=== PATIENT | female | born 1945 | race Caucasian/White ===

== ENCOUNTER 2022-06-05 14:15 | Outpatient (RCR) | payer MEDICARE, OTHER, SELFPAY | END 2022-06-06 07:54 | disposition home or self-care (01) | PROVIDERS: PCP Family Medicine; Visit Provider Nurse Practitioner Obstetrics & Gynecology | DX: I89.0 Lymphedema, not elsewhere classified (principal); Z51.89 Encounter for other specified aftercare | CPT/HCPCS: 97110; 97140; 97166; 97530; 97535; X5282 ==

== ENCOUNTER 2023-09-23 14:00 | Outpatient (RCR) | payer MEDICARE, SELFPAY | END 2024-01-21 23:59 | disposition home or self-care (01) | PROVIDERS: PCP Family Medicine; Visit Provider Family Medicine | DX: M54.41 Lumbago with sciatica, right side (principal); R20.0 Anesthesia of skin; R26.81 Unsteadiness on feet; Z51.89 Encounter for other specified aftercare | CPT/HCPCS: 97110; 97162 ==

== ENCOUNTER 2025-01-26 14:00 | Outpatient (RCR) | payer MEDICARE, SELFPAY | END 2025-01-26 15:34 | disposition home or self-care (01) | PROVIDERS: PCP Family Medicine; Visit Provider Family Medicine | DX: I89.0 Lymphedema, not elsewhere classified (principal); Z51.89 Encounter for other specified aftercare | CPT/HCPCS: 97110; 97140; 97165; 97535; X5282 ==

== ENCOUNTER 2025-01-28 19:32 | Emergency (ER) | payer MEDICARE, SELFPAY ==
--- OUTSIDE RECORDS SUMMARY | 2025-01-28 19:35 | XMS_ITS | Data Portability ---
Author Organization [place] [facility] [place] [facility], [facility] Address [address] [place] [address] Assessment No assessment recorded. Plan of Treatment Reminders Order Date Submit Date Provider Last Modified By Organization Details Last Modified Time Details Appointments None recorded. Lab urinalysis , dipstick 2021 022 [facility], [address], [place], [address], 12:30:36 Referral None recorded. Procedures None recorded. Surgeries None recorded. Imaging None recorded. Medication Orders Myrbetriq 50 mg tablet,ext ended release 2021 022 [id number] [facility], [address] [place], [address], 20:30:39 Myrbetriq 50 mg tablet,ext ended release 2021 022 [email or web address] [facility], [address] [place] [address], [address], 20:30:39 Patient TargetsNo targets recorded. Patient Instructions Encounter Date Encounter Id Patient Instructions Last Modified By Organization Details Last Modified Time 10/11/2021 [id number] Overactive bladder, urge urinary incontinence: -Reviewed overactive bladder care pathway and gave handout. -Discussed first-line conservative management including including timed voiding, urge suppression strategies, pelvic floor exercises, and avoidance of bladder irritants. -Discussed second-line therapies including pelvic floor physical therapy and OAB medications. -Dry eyes and dry mouth at baseline. Would recommend avoiding anticholinergics. -Would recommend PFPT in the future. Tender PFM's on exam. Undergoing wide local excision of the vulva next week. Wait until incision is healed for PFPT. -After hearing the options, patient would like to try medication. -Recommended starting Myrbetriq 50mg QD. Samples provided today. Rx also sent to pharmacy to check on cost/PA. Monitor BP Follow up in 3 months [email or web address] Not available 10/11/2021 12:35:23 Reason for Referral None Reported. Results Created Date Observation Date Name Description Value Unit Range Abnormal Flag Note LastModifiedBy Organization Detail LastModifiedTime 10/12/19 22 10/11/2021 UA DIP CS ADVAN TUS color -advantus YELLOW yellow Not Available [facility] [address] [facility] [address], [place], [address], 10/11/2021 12:30:36 10/12/19 22 10/11/2021 UA DIP CS ADVAN TUS appearance -advantus Cloudy clear abnormal Not Available [facility] [address] [facility] [address], [place], [address], 10/11/2021 12:30:36 10/12/19 22 10/11/2021 UA DIP CS ADVAN TUS glucose -advantus NEGATI VE mg/dL negati ve Not Available [facility] [address] [place] [address] [address], [place], [address], 10/11/2021 12:30:36 10/12/19 22 10/11/2021 UA DIP CS ADVAN TUS bilirubin -advantus NEGATI VE negati ve Not Available [facility] [address] [place] [address] [address], [place], [address], 10/11/2021 12:30:36 10/12/19 22 10/11/2021 UA DIP CS ADVAN TUS ketones -advantus NEGATI VE mg/dL negati ve Not Available [facility] [address] [place] [address] [address], [place], [address], 10/11/2021 12:30:36 10/12/19 22 10/11/2021 UA DIP CS ADVAN TUS sp. gravity -advantus 1.020 1.010- 1.025 Not Available [facility] [address] [place] [address] [address], [place], [address], 10/11/2021 12:30:36 10/12/19 22 10/11/2021 UA DIP CS ADVAN TUS pH -advantus 5.5 5.0-8. 0 Not Available [facility] [address] [place] [address] [address], [place], [address], 10/11/2021 12:30:36 10/12/19 22 10/11/2021 UA DIP CS ADVAN TUS protein -advantus NEGATI VE mg/dL negati ve Not Available [facility] [address] [place] [address], [place], [address], 10/11/2021 12:30:36 10/12/19 22 10/11/2021 UA DIP CS ADVAN TUS urobilinogen -advantus 0.2 normal Not Available [facility] [address] [place] [address], [place], [address], 10/11/2021 12:30:36 10/12/19 22 10/11/2021 UA DIP CS ADVAN TUS nitrites -advantus NEGATI VE negati ve Not Available [facility] [address] [place] [address], [place], [address], 10/11/2021 12:30:36 10/12/19 22 10/11/2021 UA DIP CS ADVAN TUS blood -advantus LARGE negati ve abnormal Not Available [facility] [address] [place] [address] [address], [place], [address], 10/11/2021 12:30:36 10/12/19 22 10/11/2021 UA DIP CS ADVAN TUS leukocytes -advantus LARGE negati ve abnormal Not Available [facility] [address] [facility] [address], [place], [address], 10/11/2021 12:30:36 10/12/19 22 10/11/2021 UA DIP CS ADVAN TUS performed by Norman Persaud Not Available [facility] [address] [facility] [address], [place], [address], 10/11/2021 12:30:36 10/12/19 22 10/11/2021 UA DIP CS ADVAN TUS total urine volume (mL) 10cc /mL ----- ----- ----- ----- ----- ----- ----- ----- ----- ----- ----- ----- ----- ----- ---- *Darion oviedo note the follo wing minim um quant ities for addit ional urine testi ng: - Atypi cals: 3 mL - Cytol ogy: 20 mL - GC/CH : 2 mL - FISH: 30 mL - Atypi cals w/ GC/CH : 5 mL - Cytol ogy PLUS FISH: 50 mL - Urine Cultu re: 3 mL ----- ----- ----- ----- ----- ----- ----- ----- ----- ----- ----- ----- ----- ----- ---- Not Available [facility] [address] [facility] [address], [place], [address], 10/11/2021 12:30:36 10/12/19 22 10/11/2021 UA MICRO SCOPI C U-WBC 25 - 50 [hpf] 0 - 2 abnormal Not Available [facility] [address] [facility] [address], [place], [address], 10/11/2021 12:30:40 10/12/19 22 10/11/2021 UA MICRO SCOPI C U-RBC 2 - 5 [hpf] 0 - 2 abnormal Not Available [facility] [address] [facility] [address], [place], [address], 10/11/2021 12:30:40 10/12/19 22 10/11/2021 UA MICRO SCOPI C bacteria Large [hpf] negati ve abnormal Not Available [facility] [address] [facility] [address], [place], [address], 10/11/2021 12:30:40 10/12/19 22 10/11/2021 UA MICRO SCOPI C squamous epi Modera te /lpf negati ve,sma ll abnormal Not Available [facility] [address] [facility] [address], [place], [address], 10/11/2021 12:30:40 Result Notes None recorded. Procedures Surgical History Date Name Laterality Status Provider Name and Address Organization Details Recorded Time 01/15/20 22 Bladder Scan cancelled BLANKA SOTO [address] [place] [address],[address], [place], [address], [facility] 01/01/2022 16:06:07 10/12/19 22 Past Data Reviewed completed BLANKA SOTO [address] [place] [address],[address], [place], [address], [facility] 10/08/2021 15:01:57 10/12/19 22 In and Out Catheterization- female completed BLANKA SOTO [address] [place] [address],[address], [place], [address], [facility] 10/11/2021 12:32:48 04/20/19 17 Diagnostic sigmoidoscopy completed Not Available Health Note 01/10/2022 20:30:34 Imaging Results None recorded. Procedure Notes None recorded. Medical Equipment None Reported. Allergies No known drug allergies Medications Name Sig Start Date Stop Date Status Note LastModified by Organization Details LastModified Time atenolol 100 mg-chlortha lidone 25 mg tablet 25mg 1/day active Not Available Not Available No t Available Myrbetriq 50 mg tablet,exte nded release Take 1 tablet every day by oral route. 022 active HN: Patient reports no longer taking Not Available Not Available Not Available Eliquis 2.5 mg tablet 5mg 2/day active Not Available Not Available No t Available Vitals Date Recorded Body weight Provider Name an d Address Organization Details Last Updated DateTime 10/11/2021 022066.1 g Mary Paulson [place] [facility] [place] [facility] 10/11/2021 11:52:56 Date Recorded Body height Body mass index (BMI) Provider Name and Address Organization Details Last Updated DateTime 10/11/2021 170.18 cm 34.9 kg/m2 Not Available Health Note 11:51:03 Social History Question Answer Notes LastModified by [employer] Details LastModified Time Tobacco Smoking Status Never Smoker Not Available Health Note 01/10/2022 20:30:35 What Is Your Level Of Caffeine Consumption? Occasional [email or web address] Information not available 01/10/2022 How Much Tobacco Do You Chew? None [email or web address] Information not available 01/10/2022 Number Of Pregnancies 3 [email or web address] Information not available 10/09/2021 Number Of Vaginal Deliveries 2 [email or web address] Information not available 10/09/2021 Number Of Caesarean Sections 0 [email or web address] Information not available 10/09/2021 What Was The Date Of Your Most Recent Tobacco Screening? 01/14/2022 [email or web address] Information not available 01/10/2022 What Is Your Relationship Status? [email or web address] Information not available 10/09/2021 Are You Sexually Active? No [email or web address] Information not available 10/09/2021 Sex: Unknown Functional Status Question Answer Note LastModified by Organizat ion Details LastModified Time Do you use any illicit or recreational drugs? No [email or web address] Information not available 01/10/2022 What is your level of alcohol consumption? NONE [email or web address] Information not available 01/10/2022 Do you or have you ever used smokeless tobacco? Never used smokeless tobacco [email or web address] Information not available 01/10/2022 Do you or have you ever used e-cigarettes or vape? Never used electronic cigarettes [email or web address] Information not available 01/10/2022 Mental Status None recorded. Family History Nothing Reported Notes:Mother has father alco holism and mother mental illness and cervical cancer Father has father alcoholism and mother mental illness and cervical cancer Medical History Condition Response Sexually Transmitted Infection N Diabetes N Other N Bleeding Disorder N High Blood Pressure Y Kidney Stones N High Cholesterol Y GERD/Acid Reflux N Heart Disease N Cancer Y Lung Disease N Depression N Gynecological History Statement/Question Response If Post Menopausal, Age at Menopause 56 Hormone Therapy N Sexually Active? N Obstetrics History GPAL:G 0 P 0 0 0 0 Immunizations Vaccine Type Date Status Note Provider Nam e and Address Organization Details Recorded Time SARS-COV-2 (COVID-19) vaccine, UNSPECIFIED 1 completed Not Available Health Note 10/09/2021 13:36:42 influenza, unspecified formulation 1 completed Not Available Health Note 10/09/2021 13:36:42 pneumococcal, unspecified formulation 5 completed Not Available Health Note 10/09/2021 13:36:42 influenza, unspecified formulation 1 completed Not Available Health Note 01/10/2022 20:30:39 SARS-COV-2 (COVID-19) vaccine, UNSPECIFIED 2 completed Not Available Health Note 01/10/2022 20:30:39 pneumococcal, unspecified formulation 1 completed Not Available Health Note 01/10/2022 20:30:39 Past Encounters Encounter ID Performer Location Encounter Start Date Encounter Closed Date Diagnosis/Indication Diagnosis SNOMED-CT Code Diagnosis ICD10 Code Diagnosis IMO Codes Diagnosis Note [id number] BLANKA SOTO [facility] [address] [address] 10/11/2021 11:50:57 10/11/2021 12:58:38 Overactive urinary bladder 725397723 N32.81 chronic, worse Health Concerns Section Related Observation LastModified by Organization Detai ls LastModified Time None Recorded Concern Status LastModified by Organization Details LastModified Time None Recorded Advance Directives Directive None Recorded Payers Insurance Date Sequence Insurance Name Policy Number Policy Fang Covered Member ID Fang Member ID Guarantor Name 01/13/2022 1 [employer] [facility] [id number] Darshana Gonzalez [id number] Darshana Gonzalez Notes Date Note Type Note Provider Name and Address Organization Details Recorded Time 10/11/2021 text/html ROS as noted in the HPI 10/11/21:Patient seen today for OAB. 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 She has OAB with incontinence and was referred by her gynecology oncologist for treatment to help improve her vulvar hygiene as she is wearing pads.She is scheduled for wide local excision of the vulva on 10/17/21.Has had OAB for many years, this did not bother her until she was diagnosed with SCCOn clobetasol.NF: every 2 hours (not sure if she wakes up due to needing to void)DF: too often; every 30 minutes to 1.5 hoursDoes not wear padsNo history of recurrent urinary tract infections, kidney stones, gross hematuria2 children, vaginal deliveryAbdominal surgeries: noneNo constipationNo neurologic historyLimits caffeine as this irritates her bladder, has small amount of green teaNo smoking history Urogenital Distress Inventory (DEREK-6): 8Incontinence Impact Questionnaire (IIQ-7): 6 BLANKA SOTO [address] [place] [address],[address], [place], [address], [facility] [place] [facility] 10/11/2021 12:35:38 OBGyn Episode No OBEpisode recorded.
--- OUTSIDE RECORDS SUMMARY | 2025-01-28 19:35 | XMS_ITS | CCD ---
Author Name Interface, [id number] lity Address [address] [facility] [address] [place] [address] Organization [facility] Address [address] [facility] [address] [place] [address] Care Team Providers Care Osd Clerk Name Role Phone Anabel EASLEY, Eugenie Corbett Unavailable Un available Allergies and Adverse Reactions Medication/Group Name Reaction Severity Date Penicillins 01/04/2025 MATTHIAS Inhibitors 01/04/2025 losartan 01/04/2025 Care Plan Date Type Value 01/04/2025 APPOINTMENT OV 30 MIN 06/29/2024 APPOINTMENT OV 30 MIN Reason for Visit OV 30 MIN Encounters Date Name 01/04/2025 Vulvar cancer 01/04/2025 Vulvar cancer Functional Status Date Name/Question Score/Answer 04/17/2021 ECOG performance status - grade 0 0 06/24/2021 ECOG performance status - grade 0 0 10/07/2021 ECOG performance status - grade 0 0 09/11/2021 ECOG performance status - grade 0 0 Diagnostic Results Date Type Test Units Lower Limit Upper Limit Result Flag Comments Status Ordered By Specimen Source Lab Address 05/09 [facility] other lab See 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 d Medications Date Name Route Dose Frequency Instructions Start Date End Date Status Fill Status Indication 03/03 [place] 3-DHA-E PA-Fish Oil Oral Liquid 1,600 mg-500 mg-800 mg/5 mL active 12/01 Solifen acin Oral orally 5.0 mg daily inactive 06/10 Magnesi um Oxide Oral inactive 04/17 Atenolo l Oral orally 1.0 tablet daily active 03/03 Flaxsee d Oil active 08/26 Mirabeg virgil Oral 24 hr Tab inactive 03/03 Coenzym e Q10 Oral active 01/09 clobeta alexandr propion ate 0.5 MG/ML Topical Cream 2024 active Lichen sclerosus (disorder) 05/10 Apixaba n Oral Oral 5.0 mg BID 2021 active Problems Diagnosis Status Date of Diagnosis Resolution Date Vulvar cancer Active 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 Lichen sclerosus (disorder) Active Overactive bladder Active Urge incontinence of urine Active Vulvar lesion Active Lymphedema of lower extremity (disorder) Active Skin abscess Active Perianal abscess (disorder) Active Procedures Date Category Name Instructions Status 06/21/2024 Physician Order RTC MD Ordered 06/29/2024 Physician Order Pelvic examinati on (List separately in addition to code for primary procedure) Administered 01/04/2025 Physician Order Pelvic examinati on (List separately in addition to code for primary procedure) Administered 01/04/2025 Physician Order RTC MD Ordered 07/04/2025 Physician Order RTC MD Ordered Social History Date Name Value 06/29/2024 Smoking Status Never smoker 01/04/2025 Smoking Status Never smoker 06/09/2023 Sex Female Vital Signs Date Type Value 06/29/2024 Body Temperature 98.00 06/29/2024 Heart Beat 77.00 06/29/2024 BSA 2.12 06/29/2024 BMI 35.10 06/29/2024 Height 67.00 06/29/2024 Weight 224.10 06/29/2024 Pain Scale 0.00 06/29/2024 Intravascular Systolic 156 06/29/2024 Intravascular Diastolic 88 06/29/2024 Oxygen Saturation 98.00 06/29/2024 Respiratory Rate 16.00 01/04/2025 Body Temperature 97.90 01/04/2025 BMI 34.75 01/04/2025 Height 67.00 01/04/2025 Weight 221.90 01/04/2025 BSA 2.11 01/04/2025 Intravascular Systolic 156 01/04/2025 Intravascular Diastolic 88 01/04/2025 Oxygen Saturation 98.00 01/04/2025 Respiratory Rate 16.00 01/04/2025 Heart Beat 68.00 01/04/2025 Pain Scale 0.00 Notes Section * 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 TUMOR HISTORY:* 11/07/20: Presented for genital rash. Treated for vulvovaginal candidiasis. H/o OAB and incontinence. Notable intermittent itching of the vulva for a few years. Initial evaluation showed a confluent rash extending to the groin on both sides and down to the perianal area. Vulvar skin was hypertrophicfrom chronic itching. On the medial labia near the introitus there were 3 ulcerative lesions with clear to white exudate. Given diflucan and vaginal estrogen. Did not start premarin due to cost. Started using aquafor and replens.? * 02/01/21: Presented for worsening redness of the groin/rash. Given ketoconazole 2% and diflucan. Diflucan perhaps helped slightly. * 02/08/21: Interval follow up. Persistent diffuse erythema. Added miconazole to above regimen.? * 03/28/21: Return evaluation. Left vaginal introitus with a 1.2cm area which was slightly raised thatwas not present previously. Left vulva introitus biopsy - superficial aspect of an atypical squamous proliferation with features concerning for squamous cell carcinoma.? * 04/03/21: Return evaluation. Significant erythema, well demarcated involving the labia majora bilaterally, perineum and perianal area. Left of the introitus was a 1.2cm area of raised tissue. Biopsy - invasive well differentiated squamous cell carcinoma, DOI could not be assessed.? * 05/02/21: Primary treatment: Underwent left radical vulvectomy and left inguinofemoral lymph node biopsy. Final pathology with well to moderately differentiated SCC of the vulva. Maximum tumor size 3.1cm, DOI 0.48cm. Closest margin >0.5cm. Associated focal dVIN, margins negative for SHAMA. Metastatic disease identified in left inguinofemoral sentinel lymph node, largest focus 0.3cm. Final stage IIIA. * 05/2021: Met with radiation oncologist in [place] to plan postoperative radiation to the left groin. ?Medical oncology consult in [place] occurred, discussing weekly cisplatin.? * 06/24/21: Received 1 cycle cisplatin - discontinued all subsequent cycles.? * 06/24/21-07/24/21: Adjuvant RT Bilateral nodes IMRT 5625cGy in 25 fxs (Dr. Perry). Vulva spared.? * 09/11/21: Vulva with 3x3cm erythematous, flat, ulcerated area at the 11:00 periurethral/clitoral crural area. Biopsy - dVIN, neg for carcinoma. Discussed plan for WLE.? * 09/27/21: Pt called to report additional lesion along the right vulva. Using Clobetasol with some mild improvement but wished to come in for assessment prior to plan for WLE of new 11:00 lesion.? * 10/17/2021:?Wide local excision of the vulva.? Pathology:?Differentiated type vulvar?intra epithelial neoplasia?(DVIN), background lichen sclerosis which extends to some peripheral margins, negative for invasive carcinoma.? Vulvar biopsy at 7:00:?benign squamous mucosa, negative for inflammatory changes dysplasia and malignancy. * 01/08/2022: Recurrence #1?perineal cyst biopsy: well-differentiated SCC ([facility]) * 01/28/[address]:?Negative for distant metastatic disease.?Decreased but persistent FDG uptake involving the vulvar region (max SUV 6.0, previously 8.0). ?Mildly FDG avid soft tissue thi ckening involving the right perineal region?(max SUV 15.4). 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 Genetic Testing (Design Technician Oncology): N/A ? Interval History (Design Technician Oncology) No interval changes.?Doing OK, no concerns. Using Clobetasol 2 times weekly. Hasn't noticed any bleeding or pruritus.?No new lesions/bumps. Review of Systems: A complete 14-point review of systems is negative except as noted?in the above history of present illness. 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 Rare alcohol use. No illicit substances.? Health Maintenance: Pap smear: 2019 - normal Mammogram: 2019 - normal per pt report? Colonoscopy: N/A DEXA: N/A Vital Signs: Blood pressure: 156/88, Sitting, R arm, Regular, Pulse: 68, Temperature: 97.9 F, Respirations: 16, O2 sat: 98%, At Rest, Room Air, Pain Scale: 0, Height: 67 in, Weight: 221.9 lb, BSA: 2.11, BMI: 34.75 kg/m2 Performance Status ECOG 0 Normal activity. Fully active, able to carry on all pre-disease performance without restriction. (Date: 10/07/2021) Physical Exam (Design Technician Oncology): General: Well appearing, no acute distress Extremities: Left lower extremity edema c/w previous diagnosis of lymphedema? Psych: Appropriate mood and affect. Pelvic:? No inguinofemoral lymphadenopathy, erythematous appearance bilateral labia extending toperineum, stable since last exam - especially irritated near agglutinated clitoral cabezas but no tenderness or raised lesions, vulvectomy incision posteriorly completely healed. No masses/lesions of the vulva; no hyperkeratosis or raised lesions for biopsy. Speculum exam deferred. No bimanual exam.? Laboratory Data: CBC Lab Results 05/09/2024 05/01/2023 03/26/2022 02/13/2022 10/08/19 22 09/11/2021 CBC CMP Lab Results 05/09/2024 05/01/2023 03/26/2022 02/13/2022 10/08/19 22 09/11/2021 Chemistries ? Imaging: PET/CT?01/29/2022 ([facility] [place]):?Decreased but persistent FDG uptake involving the vulvar region.? FDG avid soft tissue thickening in the right perineal region. Problems: * Vulvar cancer ( Extent of Disease: Active surveillance; Disease State: Recurrent disease; Histopathologic Type: Squamous cell carcinoma; Histologic Grade: G1; Lymph- Vascular Invasion: Not present; ) * Differentiated SHAMA (vulvar intraepithelial neoplasia) * Lichen sclerosus (disorder) * Lymphedema of lower extremity (disorder) ( Lymphedema left lower extremity, s/p vulvectomy and inguinofemoral LND. 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 1. Recurrent vulvar cancer* S/p vulvectomy, RT + chemo in 07/2021. Completed RT to?groins only but dropped chemo after 1 week. * S/p radical excision 01/2022 for recurrence -reviewed pathology results with patient - close margin2-3 mm but all margins negative for invasive carcinoma and SHAMA? * Recommend surveillance to every 6 months for 3 years (01/2027) with?imaging as indicated by physical exam findings * Counseled on?risk of recurrence- she is aware that the?goal of close?surveillance is to?diagnose lesions?early enough?for re-excision 2. Atrial fibrillation * Paroxysmal. Had notable A fib with RVR during surgery and post-op period. Converted back to normal rhythm.? * On Eliquis * Recommend close follow-up with Cardiology and PCP for continued monitoring.? 3. Lichen sclerosus* Recommended twice weekly use?of Clobetasol ointment - Rx refilled? * Recommended?discontinuing?soap use in the vulvar area? * Patient aware that?LS can be associated with a conversion to squamous cell carcinoma of the vulva-- occurs in up to 5% of cases.? * Earlier detection, the introduction of potent topical glucocorticoids, the more liberal use of biopsy and excision of abnormally thickened skin resistant to treatment may lead to a reduction in risk of SCC for women diagnosed with LS. ? * Patients warrants close evaluation every 3-6 months of the affected area. ? * Given the association with diabetes and hypothyroidism this also warrants close monitoring via PCP.? 4. Left leg lymphedema* S/p left inguinofemoral lymph node biopsy * Working with?Lymphedema specialist at [facility] * Encouraged compression and elevation * Discussed s/sx of DVT vs. lymphedema? RETURN IN 6 MONTHS FOR SURVEILLANCE? I spent 15 minutes reviewing the patient's chart (outside clinic and hospital documentation, labs and imaging) before seeing the patient today. I spent 15 minutes face to face with the patient, 5 minutes of which was spent interviewing and counseling the patient and 10 minutes examining the patient.? Eugenie Little MD ? Gynecologic Oncology - [facility]? 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 TUMOR HISTORY:* 11/07/20: Presented for genital rash. Treated for vulvovaginal candidiasis. H/o OAB and incontinence. Notable intermittent itching of the vulva for a few years. Initial evaluation showed a confluent rash extending to the groin on both sides and down to the perianal area. Vulvar skin was hypertrophicfrom chronic itching. On the medial labia near the introitus there were 3 ulcerative lesions with clear to white exudate. Given diflucan and vaginal estrogen. Did not start premarin due to cost. Started using aquafor and replens.? * 02/01/21: Presented for worsening redness of the groin/rash. Given ketoconazole 2% and diflucan. Diflucan perhaps helped slightly. * 02/08/21: Interval follow up. Persistent diffuse erythema. Added miconazole to above regimen.? * 03/28/21: Return evaluation. Left vaginal introitus with a 1.2cm area which was slightly raised thatwas not present previously. Left vulva introitus biopsy - superficial aspect of an atypical squamous proliferation with features concerning for squamous cell carcinoma.? * 04/03/21: Return evaluation. Significant erythema, well demarcated involving the labia majora bilaterally, perineum and perianal area. Left of the introitus was a 1.2cm area of raised tissue. Biopsy - invasive well differentiated squamous cell carcinoma, DOI could not be assessed.? * 05/02/21: Primary treatment: Underwent left radical vulvectomy and left inguinofemoral lymph node biopsy. Final pathology with well to moderately differentiated SCC of the vulva. Maximum tumor size 3.1cm, DOI 0.48cm. Closest margin >0.5cm. Associated focal dVIN, margins negative for SHAMA. Metastatic disease identified in left inguinofemoral sentinel lymph node, largest focus 0.3cm. Final stage IIIA. * 05/2021: Met with radiation oncologist in [place] to plan postoperative radiation to the left groin. ?Medical oncology consult in [place] occurred, discussing weekly cisplatin.? * 06/24/21: Received 1 cycle cisplatin - discontinued all subsequent cycles.? * 3/7/22-07/24/21: Adjuvant RT Bilateral nodes IMRT 5625cGy in 25 fxs (Dr. Perry). Vulva spared.? * 09/11/21: Vulva with 3x3cm erythematous, flat, ulcerated area at the 11:00 periurethral/clitoral crural area. Biopsy - dVIN, neg for carcinoma. Discussed plan for WLE.? * 09/27/21: Pt called to report additional lesion along the right vulva. Using Clobetasol with some mild improvement but wished to come in for assessment prior to plan for WLE of new 11:00 lesion.? * 10/17/2021:?Wide local excision of the vulva.? Pathology:?Differentiated type vulvar?intra epithelial neoplasia?(DVIN), background lichen sclerosis which extends to some peripheral margins, negative for invasive carcinoma.? Vulvar biopsy at 7:00:?benign squamous mucosa, negative for inflammatory changes dysplasia and malignancy. * 01/08/2022: Recurrence #1?perineal cyst biopsy: well-differentiated SCC ([facility]) * 01/28/[address]:?Negative for distant metastatic disease.?Decreased but persistent FDG uptake involving the vulvar region (max SUV 6.0, previously 8.0). ?Mildly FDG avid soft tissue thi ckening involving the right perineal region?(max SUV 15.4). 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 Genetic Testing (Design Technician Oncology): N/A ? Interval History (Design Technician Oncology) No interval changes.?Doing OK, no concerns. Using Clobetasol 2 times weekly. Hasn't noticed any bleeding or pruritus.?No new lesions/bumps. Review of Systems: A complete 14-point review of systems is negative except as noted?in the above history of present illness. 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 Rare alcohol use. No illicit substances.? Health Maintenance: Pap smear: 2019 - normal Mammogram: 2019 - normal per pt report? Colonoscopy: N/A DEXA: N/A Vital Signs: Blood pressure: 156/88, Sitting, R arm, Regular, Pulse: 77, Temperature: 98 F, Respirations: 16, O2sat: 98%, At Rest, Room Air, Pain Scale: 0, Height: 67 in, Weight: 224.1 lb, BSA: 2.12, BMI: 35.1 kg/m2 Physical Exam (Design Technician Oncology): General: Well appearing, no acute distress Extremities: Left lower extremity edema c/w previous diagnosis of lymphedema? Psych: Appropriate mood and affect. Pelvic:? No inguinofemoral lymphadenopathy, erythematous appearance bilateral labia extending toperineum, stable since last exam - especially irritated near agglutinated clitoral cabezas but no tenderness or raised lesions, vulvectomy incision posteriorly completely healed. No masses/lesions of the vulva; no hyperkeratosis or raised lesions for biopsy. Speculum exam deferred. No bimanual exam.? Laboratory Data: CBC Lab Results 05/09/2024 05/01/2023 03/26/2022 02/13/2022 10/08/1909/11/2021 CBC CMP Lab Results 05/09/2024 05/01/2023 03/26/2022 02/13/2022 10/08/1909/11/2021 Chemistries ? Imaging: PET/CT?01/29/2022 ([facility] [place]):?Decreased but persistent FDG uptake involving the vulvar region.? FDG avid soft tissue thickening in the right perineal region. Problems: * Vulvar cancer ( Extent of Disease: Active surveillance; Disease State: Recurrent disease; Histopathologic Type: Squamous cell carcinoma; Histologic Grade: G1; Lymph- Vascular Invasion: Not present; ) * Differentiated SHAMA (vulvar intraepithelial neoplasia) * Lichen sclerosus (disorder) * Lymphedema of lower extremity (disorder) ( Lymphedema left lower extremity, s/p vulvectomy and inguinofemoral LND. 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 1. Recurrent vulvar cancer* S/p vulvectomy, RT + chemo in 07/2021. Completed RT to?groins only but dropped chemo after 1 week. * S/p radical excision 01/2022 for recurrence -reviewed pathology results with patient - close margin2-3 mm but all margins negative for invasive carcinoma and SHAMA? * Recommend transitioning?surveillance to every 6 months for 3 years (01/2027) with?imaging as indicated by physical exam findings * Counseled on?risk of recurrence- she is aware that the?goal of close?surveillance is to?diagnose lesions?early enough?for re-excision 2. Atrial fibrillation * Paroxysmal. Had notable A fib with RVR during surgery and post-op period. Converted back to normal rhythm.? * On Eliquis * Recommend close follow-up with Cardiology and PCP for continued monitoring.? 3. Lichen sclerosus* Recommended twice weekly use?of Clobetasol ointment? * Recommended?discontinuing?soap use in the vulvar area? * Patient aware that?LS can be associated with a conversion to squamous cell carcinoma of the vulva-- occurs in up to 5% of cases.? * Earlier detection, the introduction of potent topical glucocorticoids, the more liberal use of biopsy and excision of abnormally thickened skin resistant to treatment may lead to a reduction in risk of SCC for women diagnosed with LS. ? * Patients warrants close evaluation every 3-6 months of the affected area. ? * Given the association with diabetes and hypothyroidism this also warrants close monitoring via PCP.? 4. Left leg lymphedema* S/p left inguinofemoral lymph node biopsy * Working with?Lymphedema specialist at [facility] * Encouraged compression and elevation * Discussed s/sx of DVT vs. lymphedema? RETURN IN 6 MONTHS FOR SURVEILLANCE? I spent 15 minutes reviewing the patient's chart (outside clinic and hospital documentation, labs and imaging) before seeing the patient today. I spent 15 minutes face to face with the patient, 5 minutes of which was spent interviewing and counseling the patient and 10 minutes examining the patient.? Eugenie Little MD ? Gynecologic On[facility] - [facility]? Pain Care Management: Pain Scale: 0 Patient Care needs: Depressions Status: Was not screened Reason: Patient Refused; Screening Date: 06/29/2024 Psycho-Social PHQ-9 Follow-up Plan (if applicable): Smoking Status: Smoking Tobacco : Never smoker; Smokeless Tobacco : none found; Vaping : none found Eugenie Little MD Copy to: Rashad Bajwa MD FACOG (Referring) Electronically signed by Eugenie Little MD 06/29/2024 15:32 CDT
--- OUTSIDE RECORDS SUMMARY | 2025-01-28 19:35 | XMS_ITS ---
Author Name Interface, [id number] lity Address [address] [place] [id number] [facility] Address [facility] [address] [address] Allergies and Adverse Reactions Plan Reason for Visit Encounters Diagnostic Results Medications Problems Vital Signs
--- OUTSIDE RECORDS SUMMARY | 2025-01-28 19:35 | XMS_ITS ---
Author Name Interface, [id number] lity Address [address] [facility] [address] [place] [address] [facility] Address [address] [facility] [address] [place] [address] Allergies and Adverse Reactions Medication/Group Name Reaction Severity Date Penicillins 01/04/2025 MATTHIAS Inhibitors 01/04/2025 losartan 01/04/2025 Plan Date Type Value 01/04/2025 APPOINTMENT OV 30 MIN 06/29/2024 APPOINTMENT OV 30 MIN 12/25/2023 APPOINTMENT OV 30 MIN 12/23/2023 APPOINTMENT OV 30 MIN 08/28/2023 APPOINTMENT OV 30 MIN 08/26/2023 APPOINTMENT OFFICE FU 30 MIN NO TREATMENT 08/26/2023 APPOINTMENT OFFICE FU 30 MIN NO TREATMENT 06/10/2023 APPOINTMENT OV 30 MIN 03/04/2023 APPOINTMENT OV 30 MIN 12/01/2022 APPOINTMENT OV 30 MIN 08/26/2022 APPOINTMENT OV 30 MIN 05/27/2022 APPOINTMENT OV 30 MIN 03/11/2022 APPOINTMENT POST OP 30 MIN 03/04/2022 APPOINTMENT POST OP 30 MIN 02/17/2022 APPOINTMENT SURGERY 2 HR 02/17/2022 APPOINTMENT SURGERY 2 HR 02/14/2022 APPOINTMENT FORM 15 MIN 02/07/2022 APPOINTMENT NEW PT CONSULT 6 0 MIN 02/05/2022 APPOINTMENT FORM 15 MIN 01/31/2022 APPOINTMENT NEW PT CONSULT 6 0 MIN 01/29/2022 APPOINTMENT OUTSIDE TEST 5 M IN 01/21/2022 APPOINTMENT OV 30 MIN 01/21/2022 APPOINTMENT OV 30 MIN 01/13/2022 APPOINTMENT OV 30 MIN 01/13/2022 APPOINTMENT OV 30 MIN 01/01/2022 APPOINTMENT OV 30 MIN 12/25/2021 APPOINTMENT OV 30 MIN 12/16/2021 APPOINTMENT OV 30 MIN 11/28/2021 APPOINTMENT POST OP 30 MIN 11/14/2021 APPOINTMENT POST OP 30 MIN 10/30/2021 APPOINTMENT POST OP 30 MIN 10/28/2021 APPOINTMENT OV 20 MIN 10/17/2021 APPOINTMENT SURGERY 1 HR 10/07/2021 APPOINTMENT OV 20 MIN 10/07/2021 APPOINTMENT OUTSIDE TEST 5 M IN 09/11/2021 APPOINTMENT OV 20 MIN 07/22/2021 APPOINTMENT TREATMENT 4 HR 07/22/2021 APPOINTMENT LAB 15 MIN 07/22/2021 APPOINTMENT OV 30 MIN 07/15/2021 APPOINTMENT TREATMENT 4 HR 07/15/2021 APPOINTMENT LAB 15 MIN 07/15/2021 APPOINTMENT OV 30 MIN 07/08/2021 APPOINTMENT TREATMENT 6 HR 07/08/2021 APPOINTMENT LAB 15 MIN 07/08/2021 APPOINTMENT OV 30 MIN 07/01/2021 APPOINTMENT TREATMENT 7 HR 07/01/2021 APPOINTMENT LAB 15 MIN 07/01/2021 APPOINTMENT OV 30 MIN 06/24/2021 APPOINTMENT LAB 15 MIN 06/24/2021 APPOINTMENT TREATMENT 5 HR 06/24/2021 APPOINTMENT OV 30 MIN 06/19/2021 APPOINTMENT OV 30 MIN 06/19/2021 APPOINTMENT LAB 15 MIN 06/19/2021 LABORDER CBC w/ auto diff 06/19/2021 LABORDER CMP 06/24/2021 LABORDER iSTAT creatinine panel 06/24/2021 LABORDER Magnesium Panel 06/24/2021 LABORDER CBC w/ auto diff 07/08/2021 LABORDER CMP 07/08/2021 LABORDER CMP 07/08/2021 LABORDER Magnesium Panel 07/08/2021 LABORDER Magnesium Panel 07/08/2021 LABORDER CBC w/ auto diff 07/08/2021 LABORDER CBC w/ auto diff 07/08/2021 LABORDER iSTAT creatinine panel 07/08/2021 LABORDER iSTAT creatinine panel 07/15/2021 LABORDER iSTAT creatinine panel 07/15/2021 LABORDER CMP 07/15/2021 LABORDER CBC w/ auto diff 07/15/2021 LABORDER Magnesium Panel 07/22/2021 LABORDER Magnesium Panel 07/22/2021 LABORDER iSTAT creatinine panel 07/22/2021 LABORDER CMP 07/22/2021 LABORDER CBC w/ auto diff 09/11/2021 LABORDER Surgical patholo gy panel 10/07/2021 LABORDER Surgical patholo gy panel 01/23/2022 LABORDER PET/CT scan, sku ll base/mid thigh Reason for Visit OV 30 MIN Encounters Date Name 06/19/2021 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 Lichen sclerosus (di sorder) 06/19/2021 Lymphedema of lower extremity (disorder) 06/19/2021 Overactive bladder 06/19/2021 Perianal abscess (di sorder) 06/19/2021 Skin abscess 06/19/2021 Urge incontinence of urine 06/19/2021 Vulvar cancer 06/19/2021 Vulvar lesion Diagnostic Results Date Type Test Units Lower Limit Upper Limit Result Flag Comments Status Ordered By Specimen Source Lab Address 06/19 CMP Album in g/dL 3.2 5.2 4.5 FINAL Jo Wells [place] [address] [id number] [phone] Phone: () - 06/19 CMP Alkal ine phosp hatas e U/L 46.0 116.0 100 FINAL Jo Wells [place] [address] [phone] Phone: () - 06/19 CMP ALT/S GPT U/L 7.0 40.0 32 FINAL Jo Wells [place] [address] [phone] Phone: () - 06/19 CMP AST/S GOT U/L 13.0 40.0 24 FINAL Jo Wells [place] [address] [address] [facility] [address] [phone] 0 Phone: () - 06/19 CMP BUN mg/dL 9.0 23.0 14 FINAL Jo Wells [place] [address] [phone] 0 Phone: () - 06/19 CMP Calci um mg/dL 8.7 10.4 10.1 FINAL Jo Wells [place] [address] [address] [facility] [address] [phone] 0 Phone: () - 06/19 CMP Chlor jimmie mmol/L 96.0 114.0 103 FINAL Jo Kelley [facility], [facility] [address] [phone] 0 Phone: () - 06/19 CMP CO2 mmol/L 20.0 31.0 24 The expected total allowable error for CO2 is 5.6%. We have seen up to 10% differenc e in values if reported at the end of the 96 hour stability window. Please consider the clinical significa nce of a 2.0-2.5 mmol/L lower reported CO2 value if reported at the end of the 96 hour stability window. [facility] N [address] [phone] 0 Phone: () - 06/19 CMP Creat inine mg/dL 0.5 1.2 0.99 [place] [address] [phone] 0 Phone: () - 06/19 CMP GFR estim ate ml/min /1.73m ^2 58.6 Low GFR is calculate d using the CKD-EPI equation. [place]AL [place] [address] [phone] 0 Phone: () - 06/19 CMP Gluco se mg/dL 73.0 126.0 92 [place]AL [place] [address] [phone] 0 Phone: () - 06/19 CMP Potas sium mmol/L 3.5 5.1 4.3 [place]AL [place] [address] [phone] 0 Phone: () - 06/19 CMP Sodiu m mmol/L 136.0 145.0 141 [facility] [address] [phone] 0 Phone: () - 06/19 CMP Bilir ubin, total mg/dL 0.3 1.2 0.3 FINAL [facility] [place], [address] [facility] [address] [place] [phone] 0 Phone: () - 06/19 CMP Total prote in g/dL 5.7 8.2 7.4 FINAL [facility] [place], [address] [facility] [address] [place] [phone] 0 Phone: () - 06/19 CBC w/ auto diff WBC K/uL 3.0 8.9 9.9 High FINAL [facility] [place], [address] [place] [phone] 0 Phone: () - 06/19 CBC w/ auto diff HGB g/dL 11.3 15.2 13.3 FINAL [facility] [place], [address] [place] [id number] 0 Phone: () - 06/19 CBC w/ auto diff PLT K/uL 113.0 364.0 339 FINAL [facility] - [place], [address] [place] [id number] 0 Phone: () - 06/19 CBC w/ auto diff Juan # (ANC) K/uL 1.6 6.6 5.6 FINAL [facility] [place], [address] [place] [id number] 0 Phone: () - 06/19 CBC w/ auto diff Juan % % 43.0 74.0 56.7 FINAL [facility] - [place], [address] [place] [id number] 0 Phone: () - 06/19 CBC w/ auto diff IG % % 0.0 0.5 0.3 FINAL [facility] - [place], [address] [place] [id number] 0 Phone: () - 06/19 CBC w/ auto diff IG # K/uL 0.0 0.03 0.03 FINAL [facility] - [place], [address] [place] [id number] 0 Phone: () - 06/19 CBC w/ auto diff LY % % 14.0 41.0 30.5 FINAL [facility] - [place], [address] [place] [address] [address] [place] [phone] 0 Phone: () - 06/19 CBC w/ auto diff MO % % 6.0 15.0 8.3 FINAL [facility] - [place], [address] [place] [address] [address] [place] [id number] 0 Phone: () - 06/19 CBC w/ auto diff EO % % 0.0 7.0 3.5 FINAL [facility] - [place], [address] [place] [address] [address] [place] [id number] 0 Phone: () - 06/19 CBC w/ auto diff BA % % 0.0 2.0 0.7 SUSANA [facility] - [place], [address] [place] [address] [place] [id number] 0 Phone: () - 06/19 CBC w/ auto diff LY # K/uL 0.4 3.6 3.0 FINAL [facility] - [place], [address] [place] [address] [address] [place] [id number] 0 Phone: () - 06/19 CBC w/ auto diff MO # K/uL 0.2 1.3 0.8 SUSANA [facility] - [place], [address] [place] [address] [address] [place] [id number] 0 Phone: () - 06/19 CBC w/ auto diff EO # K/uL 0.0 0.6 0.4 SUSANA [facility] - [place], [address] [place] [address] [address] [place] [id number] 0 Phone: () - 06/19 CBC w/ auto diff BA # K/uL 0.0 0.2 0.1 SUSANA [facility] - [place], [address] [place] [address] [address] [place] [id number] 0 Phone: () - 06/19 CBC w/ auto diff NRBC % #/100W BC 0.0 0.2 0.0 FINAL [facility] - [place], [address] [place] [address] [address] [place] [id number] 0 Phone: () - 06/19 CBC w/ auto diff RBC M/uL 3.9 5.1 4.55 FINAL [facility] - [place], [address] [place] [address] [address] [place] [id number] 0 Phone: () - 06/19 CBC w/ auto diff HCT % 35.0 48.0 41.6 FINAL [facility] - [place], [address] [place] [address] [address] [place] [id number] 0 Phone: () - 06/19 CBC w/ auto diff MCV fL 80.0 104.0 91.4 FINAL [facility] - [place], [address] [place] [address] [address] [place] [id number] 0 Phone: () - 06/19 CBC w/ auto diff MCH pg 26.0 35.0 29.2 FINAL [facility] - [place], [address] [place] [address] [place] [id number] 0 Phone: () - 06/19 CBC w/ auto diff MCHC g/dL 30.0 35.0 32.0 FINAL [facility] - [place], [address] [place] [address] [address] [place] [id number] 0 Phone: () - 06/19 CBC w/ auto diff MPV fL 9.5 13.4 10.3 FINAL [facility] - [place], [address] [place] [address] [address] [place] [id number] 0 Phone: () - 06/19 CBC w/ auto diff RDW % 11.4 16.1 13.30 FINAL [facility] - [place], [address] [place] [id number] 0 Phone: () - 06/24 Magne sium, mg/dL mg/dL 1.5 2.3 2.0 FINAL [facility], [address] [facility] [phone] 0 Phone: () - 06/24 iSTAT creat inine panel Creat inine , iSTAT mg/dl 0.6 1.3 0.9 FINAL Xiomara [facility] - [place], [address] [place] [address] [address] [place] [phone] 0 Phone: () - 06/24 iSTAT creat inine panel GFR estim ate ml/min /1.73m ^2 65.7 GFR is calculate d using the CKD-EPI equation. FINAL Xiomara [facility] - [place], [address] [place] [address] [address] [place] [id number] 0 Phone: () - 09/11 Surgi anil patho logy panel Biops y summa ry of findi ngs (Added) SEE RESULTS BELOW CASE REPORTPat murphy army hospitalgy Report Case: [id number] ing Provider: Dorothea Engel, Collected :09/12/19 22 0900MDOrd ering Location: [facility] Received: 2 1406Patho logist: Malissa Dunne MDSpecime n: Vulvar BiopsyADD ENDUMA P16 immunosta in was also used during the initial interpret ation of this case.Adde ndum electroni france signed by Malissa Dunne MD on 09/24/2021 at8:14 AMFINAL DIAGNOSIS A) VULVA, BIOPSY:1. 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 A PAS stain for fungal organisms is negative3 . 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 While adermatit is can cause a reactive atypia, the keratinoc ytes in this case haveareas of widesprea d, pronounce d atypia with enlarged cells with prominent nucleoli. P53 staining is widesprea d along the basal layer and Ki-67 is slightlyi ncreased in the lower third of the squamous epitheliu m. While this histologi cpattern is not the most classic pattern seen in different iated SHAMA, there aremorpho logic similarit ies between this atypical epitheliu m and the patient's prior invasive squamous cell carcinoma ([id number] , B14). Therefore , the biopsy isinterpr eted as most consisten t with different iated SHAMA.Case seen in consultat ion with Drs. Peng and Rusty. 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 Now with a 3 x 3 cmerythem atous flat ulcerated area at the 11:00, periureth ral/clito ral areaGROSS DESCRIPTI NIDIA) Received in formalin, labeled with the patient's name and A, is a 0.2 x 0.2x 0.2 cm skin punch biopsy. The skin surface is flat and hernandez with no apparentl esion identifie d. The specimen is inked green and entirely submitted in [facility] te.Mayank Orta 09/11/2021 6:21 PMMICROS OPI DESCRIPTI ONThe final diagnosis is based on microscop ic examinati on of appropria te sectionso f all specimens .ADDITION AL INFORMATI ONInterpr eted at [facility] - [address], [facility] [place], [place] [address]Dzrd Performed by:[facility] - [facility] [place], [place] [address]Feag e [phone] FINAL Dorothea Wade ast 10/07 Surgi anil patho logy panel Biops y summa ry of findi ngs SEE RESULTS BELOW CASE REPORTPat hology Report Case: [id number] ing Provider: Dorothea Engel, Collected :10/08/19 22 0920MDOrd ering Location: [facility] Received: 2 1441Patho logist: Jessica Corado, MDSpecime n: VulvaFINA L DIAGNOSIS A) VULVA, 6 O'CLOCK NEAR INTROITUS , BIOPSY:1. Lichen sclerosus with atypia, see comment2. Negative for malignanc Jonelle ayala signed by Jessica Corado MD on 10/08/2021 at 5:03 PMCOMMENT The current biopsy shows lichen sclerosus with focal basilar atypia, whichrais es concern for but is NOT diagnosti c?of different iated type vulvarint raepithel ial neoplasia . The changes in the current biopsy are less pronounce dthan that seen in the prior biopsy on 09/11/2021 ([id number] ).Case seen in consultat ion with Dr. Peng.CLIN ICAL INFORMATI ONHistory of stage IIIA well to moderatel y different iated invasive squamous cellcarci noma of the vulva status post left radical vulvectom y and leftingui nofemoral sentinel lymph node and radiation therapy. On 09/11/21, patientfo und to have a 3 x 3 cm erythemat ous flat ulcerated area at the 11:00,per iurethral /clitoral area, which was biopsied and diagnosed as different iatedvulv ar intraepit helial neoplasia (d-SHAMA) ([id number] ; 09/11/21). On 09/27/2021 patient called to report an additiona l lesion along the right vulva. Usingclob etasol with some mild improveme nt but wished to come in for assessmen t priorto plan for wide local excision of new 11:00 lesion. Physical examinati ondemonst rated a 2.5 x 2.5 cm erythemat ous flat ulcerated area at the 11:00peri urethral/ clitoral crural area. Area biopsied. GROSS DESCRIPTI NIDIA) Received in formalin, labeled with the patient's name and A, is a 0.3 x 0.2cm skin biopsy. There is a 0.2 x 0.1 cm flat hernandez-brown lesion. The specimen isinked blue and entirely submitted in one cassette. CARTER 10/07/2021 MICROSCOP IC DESCRIPTI ONThe final diagnosis is based on microscop ic examinati on of appropria te sectionso f all specimens . A p53 immunosta in was performed on part A to assist inevaluat ion. The p53 immunosta in demonstra eric a wild-type pattern of expressio n.Deeper sections are examined. SHAMA [place] INFORMATI ONInterpr eted at [facility] - [address], [place], [place] [address]Ncns Performed by:[facility] - [place], [place] [address]Ltff e : FINAL Dorothea Wade ast 02[place]13 [facility] [place] sawdust drier d 03[place]26 [facility] [place] See [place]dust drier d [place]01 [facility] [place] See [place]dust drier d 05/09 [facility] [place] See sawdust drier d Medications Date Name Route Dose Frequency Instructions Start Date End Date Status Fill Status Indication 03/03 Coenzym e Q10 Oral active 03/03 Flaxsee d Oil active 03/03 [place] 3-DHA-E PA-Fish Oil Oral Liquid 1,600 mg-500 mg-800 mg/5 mL active 04/17 Atenolo l Oral orally 1.0 tablet daily active 01/09 clobeta alexandr propion ate 0.5 MG/ML Topical Cream 2024 active Lichen sclerosus (disorder) 12/22 clobeta alexandr propion ate 0.5 MG/ML Topical Cream 2023 active Lichen sclerosus (disorder) 04/25 clobeta alexandr propion ate 0.5 MG/ML Topical Cream topical ly 1.0 gram every day at bedtime 2022 active Lichen sclerosus (disorder) 11/28 clobeta alexandr propion ate 0.5 MG/ML Topical Cream topical ly 1.0 gram every day at bedtime 2021 active Lichen sclerosus (disorder) 09/11 clobeta alexandr propion ate 0.5 MG/ML Topical Cream topical ly 1.0 applic ation every day at bedtime 2021 active Lichen sclerosus (disorder) 06/20 18 ML aprepit ant 7.2 MG/ML Injecti on intrave nously 130.0 mg once Administer 30 minutes prior to chemotherapy. Do NOT dilute. Flush with NS before and after administration . 2021 active Vulvar cancer 06/19 diphenh ydramin e hydroch loride 0.5 MG/ML Injecta ble Solutio n intrave nously 50.0 mg Re-initiate treatment only upon physician approval. 2021 active Vulvar cancer 06/21 150 ML sodium chlorid e 9 MG/ML Injecti on intrave nously 1000.0 mL once 2021 active Vulvar cancer 06/19 Magnesi um Sulfate IV intrave nously 1.0 gram once 2021 active Vulvar cancer 06/19 1 ML epineph rine 1 MG/ML Injecti on intramu scularl y 0.3 mg once Re-initiate treatment only upon physician approval. 2021 active Vulvar cancer 06/19 Palonos etron IV intrave nously 0.25 mg once 2021 active Vulvar cancer 06/19 famotid ine 10 MG/ML Injecta ble Solutio n intrave nously 20.0 mg Re-initiate treatment only upon physician approval. 2021 active Vulvar cancer 06/19 methylp redniso lone 2000 MG Injecti on intrave nously 125.0 mg Re-initiate treatment only upon physician approval. 2021 active Vulvar cancer 06/19 hydroco rtisone 100 MG Injecti on intrave nously 100.0 mg Re-initiate treatment only upon physician approval. 2021 active Vulvar cancer 06/19 dexamet hasone phospha te 4 MG/ML Injecta ble Solutio n intrave nously 10.0 mg once 2021 active Vulvar cancer 06/19 Sodium Chlorid e IV 0.9 % intrave nously 1000.0 mL once Pre-hydration prior to Cisplatin administration . 2021 active Vulvar cancer 06/19 cisplat in 1 MG/ML Injecta ble Solutio n intrave nously 87.0 mg once Cisplatin is a vesicant. If diluted to a final concentration of less than 0.5 mg/mL, cisplatin is a vascular irritant. 2021 active Vulvar cancer 06/19 1 ML epineph rine 1 MG/ML Injecti on intramu scularl y 0.3 mg once Re-initiate treatment only upon physician approval. 2021 active Vulvar cancer 06/19 Palonos etron IV intrave nously 0.25 mg once 2021 active Vulvar cancer 06/19 cisplat in 1 MG/ML Injecta ble Solutio n intrave nously 87.0 mg once Cisplatin is a vesicant. If diluted to a final concentration of less than 0.5 mg/mL, cisplatin is a vascular irritant. 2021 active Vulvar cancer 06/19 Magnesi um Sulfate IV intrave nously 1.0 gram once 2021 active Vulvar cancer 06/19 methylp redniso lone 2000 MG Injecti on intrave nously 125.0 mg Re-initiate treatment only upon physician approval. 2021 active Vulvar cancer 06/19 hydroco rtisone 100 MG Injecti on intrave nously 100.0 mg Re-initiate treatment only upon physician approval. 2021 active Vulvar cancer 06/21 150 ML sodium chlorid e 9 MG/ML Injecti on intrave nously 1000.0 mL once 2021 active Vulvar cancer 06/20 18 ML aprepit ant 7.2 MG/ML Injecti on intrave nously 130.0 mg once Administer 30 minutes prior to chemotherapy. Do NOT dilute. Flush with NS before and after administration . 2021 active Vulvar cancer 06/19 Sodium Chlorid e IV 0.9 % intrave nously 1000.0 mL once Pre-hydration prior to Cisplatin administration . 2021 active Vulvar cancer 06/19 dexamet hasone phospha te 4 MG/ML Injecta ble Solutio n intrave nously 10.0 mg once 2021 active Vulvar cancer 06/19 famotid ine 10 MG/ML Injecta ble Solutio n intrave nously 20.0 mg Re-initiate treatment only upon physician approval. 2021 active Vulvar cancer 06/19 diphenh ydramin e hydroch loride 0.5 MG/ML Injecta ble Solutio n intrave nously 50.0 mg Re-initiate treatment only upon physician approval. 2021 active Vulvar cancer 06/19 methylp redniso lone 2000 MG Injecti on intrave nously 125.0 mg Re-initiate treatment only upon physician approval. 2021 active Vulvar cancer 06/19 diphenh ydramin e hydroch loride 0.5 MG/ML Injecta ble Solutio n intrave nously 50.0 mg Re-initiate treatment only upon physician approval. 2021 active Vulvar cancer 06/19 hydroco rtisone 100 MG Injecti on intrave nously 100.0 mg Re-initiate treatment only upon physician approval. 2021 active Vulvar cancer 06/19 Magnesi um Sulfate IV intrave nously 1.0 gram once 2021 active Vulvar cancer 06/19 famotid ine 10 MG/ML Injecta ble Solutio n intrave nously 20.0 mg Re-initiate treatment only upon physician approval. 2021 active Vulvar cancer 06/20 18 ML aprepit ant 7.2 MG/ML Injecti on intrave nously 130.0 mg once Administer 30 minutes prior to chemotherapy. Do NOT dilute. Flush with NS before and after administration . 2021 active Vulvar cancer 06/21 150 ML sodium chlorid e 9 MG/ML Injecti on intrave nously 1000.0 mL once 2021 active Vulvar cancer 06/19 Sodium Chlorid e IV 0.9 % intrave nously 1000.0 mL once Pre-hydration prior to Cisplatin administration . 2021 active Vulvar cancer 06/19 cisplat in 1 MG/ML Injecta ble Solutio n intrave nously 87.0 mg once Cisplatin is a vesicant. If diluted to a final concentration of less than 0.5 mg/mL, cisplatin is a vascular irritant. 2021 active Vulvar cancer 06/19 dexamet hasone phospha te 4 MG/ML Injecta ble Solutio n intrave nously 10.0 mg once 2021 active Vulvar cancer 06/19 1 ML epineph rine 1 MG/ML Injecti on intramu scularl y 0.3 mg once Re-initiate treatment only upon physician approval. 2021 active Vulvar cancer 06/19 Palonos etron IV intrave nously 0.25 mg once 2021 active Vulvar cancer 06/21 150 ML sodium chlorid e 9 MG/ML Injecti on intrave nously 1000.0 mL once 2021 active Vulvar cancer 06/19 Palonos etron IV intrave nously 0.25 mg once 2021 active Vulvar cancer 06/19 famotid ine 10 MG/ML Injecta ble Solutio n intrave nously 20.0 mg Re-initiate treatment only upon physician approval. 2021 active Vulvar cancer 06/19 dexamet hasone phospha te 4 MG/ML Injecta ble Solutio n intrave nously 10.0 mg once 2021 active Vulvar cancer 06/19 Sodium Chlorid e IV 0.9 % intrave nously 1000.0 mL once Pre-hydration prior to Cisplatin administration . 2021 active Vulvar cancer 06/19 cisplat in 1 MG/ML Injecta ble Solutio n intrave nously 87.0 mg once Cisplatin is a vesicant. If diluted to a final concentration of less than 0.5 mg/mL, cisplatin is a vascular irritant. 2021 active Vulvar cancer 06/20 18 ML aprepit ant 7.2 MG/ML Injecti on intrave nously 130.0 mg once Administer 30 minutes prior to chemotherapy. Do NOT dilute. Flush with NS before and after administration . 2021 active Vulvar cancer 06/19 diphenh ydramin e hydroch loride 0.5 MG/ML Injecta ble Solutio n intrave nously 50.0 mg Re-initiate treatment only upon physician approval. 2021 active Vulvar cancer 06/19 hydroco rtisone 100 MG Injecti on intrave nously 100.0 mg Re-initiate treatment only upon physician approval. 2021 active Vulvar cancer 06/19 Magnesi um Sulfate IV intrave nously 1.0 gram once 2021 active Vulvar cancer 06/19 1 ML epineph rine 1 MG/ML Injecti on intramu scularl y 0.3 mg once Re-initiate treatment only upon physician approval. 2021 active Vulvar cancer 06/19 methylp redniso lone 2000 MG Injecti on intrave nously 125.0 mg Re-initiate treatment only upon physician approval. 2021 active Vulvar cancer 06/19 hydroco rtisone 100 MG Injecti on intrave nously 100.0 mg Re-initiate treatment only upon physician approval. 2021 active Vulvar cancer 06/19 Palonos etron IV intrave nously 0.25 mg once 2021 active Vulvar cancer 06/21 150 ML sodium chlorid e 9 MG/ML Injecti on intrave nously 1000.0 mL once 2021 active Vulvar cancer 06/19 dexamet hasone phospha te 4 MG/ML Injecta ble Solutio n intrave nously 10.0 mg once 2021 active Vulvar cancer 06/20 18 ML aprepit ant 7.2 MG/ML Injecti on intrave nously 130.0 mg once Administer 30 minutes prior to chemotherapy. Do NOT dilute. Flush with NS before and after administration . 2021 active Vulvar cancer 06/19 famotid ine 10 MG/ML Injecta ble Solutio n intrave nously 20.0 mg Re-initiate treatment only upon physician approval. 2021 active Vulvar cancer 06/19 cisplat in 1 MG/ML Injecta ble Solutio n intrave nously 87.0 mg once Cisplatin is a vesicant. If diluted to a final concentration of less than 0.5 mg/mL, cisplatin is a vascular irritant. 2021 active Vulvar cancer 06/19 diphenh ydramin e hydroch loride 0.5 MG/ML Injecta ble Solutio n intrave nously 50.0 mg Re-initiate treatment only upon physician approval. 2021 active Vulvar cancer 06/19 methylp redniso lone 2000 MG Injecti on intrave nously 125.0 mg Re-initiate treatment only upon physician approval. 2021 active Vulvar cancer 06/19 Magnesi um Sulfate IV intrave nously 1.0 gram once 2021 active Vulvar cancer 06/19 1 ML epineph rine 1 MG/ML Injecti on intramu scularl y 0.3 mg once Re-initiate treatment only upon physician approval. 2021 active Vulvar cancer 06/19 Sodium Chlorid e IV 0.9 % intrave nously 1000.0 mL once Pre-hydration prior to Cisplatin administration . 2021 active Vulvar cancer 06/19 dexamet hasone phospha te 4 MG/ML Injecta ble Solutio n intrave nously 10.0 mg once 2021 active Vulvar cancer 06/19 hydroco rtisone 100 MG Injecti on intrave nously 100.0 mg Re-initiate treatment only upon physician approval. 2021 active Vulvar cancer 06/19 Sodium Chlorid e IV 0.9 % intrave nously 1000.0 mL once Pre-hydration prior to Cisplatin administration . 2021 active Vulvar cancer 06/20 18 ML aprepit ant 7.2 MG/ML Injecti on intrave nously 130.0 mg once Administer 30 minutes prior to chemotherapy. Do NOT dilute. Flush with NS before and after administration . 2021 active Vulvar cancer 06/19 diphenh ydramin e hydroch loride 0.5 MG/ML Injecta ble Solutio n intrave nously 50.0 mg Re-initiate treatment only upon physician approval. 2021 active Vulvar cancer 06/19 methylp redniso lone 2000 MG Injecti on intrave nously 125.0 mg Re-initiate treatment only upon physician approval. 2021 active Vulvar cancer 06/19 famotid ine 10 MG/ML Injecta ble Solutio n intrave nously 20.0 mg Re-initiate treatment only upon physician approval. 2021 active Vulvar cancer 06/19 Palonos etron IV intrave nously 0.25 mg once 2021 active Vulvar cancer 06/19 Magnesi um Sulfate IV intrave nously 1.0 gram once 2021 active Vulvar cancer 06/21 150 ML sodium chlorid e 9 MG/ML Injecti on intrave nously 1000.0 mL once 2021 active [facility]var cancer 06/19 cisplat in 1 MG/ML Injecta ble Solutio n intrave nously 87.0 mg once Cisplatin is a vesicant. If diluted to a final concentration of less than 0.5 mg/mL, cisplatin is a vascular irritant. 2021 active Vulvar cancer 06/19 1 ML epineph rine 1 MG/ML Injecti on intramu scularl y 0.3 mg once Re-initiate treatment only upon physician approval. 2021 active Vulvar cancer 06/19 famotid ine 10 MG/ML Injecta ble Solutio n intrave nously 20.0 mg Re-initiate treatment only upon physician approval. 2021 active Vulvar cancer 06/19 diphenh ydramin e hydroch loride 0.5 MG/ML Injecta ble Solutio n intrave nously 50.0 mg Re-initiate treatment only upon physician approval. 2021 active Vulvar cancer 06/19 hydroco rtisone 100 MG Injecti on intrave nously 100.0 mg Re-initiate treatment only upon physician approval. 2021 active Vulvar cancer 06/19 methylp redniso lone 2000 MG Injecti on intrave nously 125.0 mg Re-initiate treatment only upon physician approval. 2021 active Vulvar cancer 06/19 1 ML epineph rine 1 MG/ML Injecti on intramu scularl y 0.3 mg once Re-initiate treatment only upon physician approval. 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 Lichen sclerosus (disorder) Active Overactive bladder Active Urge incontinence of urine Active Vulvar lesion Active Lymphedema of lower extremity (disorder) Active Skin abscess Active Perianal abscess (disorder) Active Vital Signs Date Type Value 06/19/2021 Body Temperature 97.90 06/19/2021 Heart Beat 124.00 06/19/2021 Intravascular Systolic 132 06/19/2021 Intravascular Diastolic 84 06/19/2021 BSA 2.17 06/19/2021 BMI 37.06 06/19/2021 Height 67.00 06/19/2021 Weight 236.60 06/19/2021 Pain Scale 0.00 06/19/2021 Oxygen Saturation 97.00 06/19/2021 Respiratory Rate 18.00 06/24/2021 Body Temperature 98.00 06/24/2021 BMI 36.81 06/24/2021 Height 67.00 06/24/2021 Weight 235.00 06/24/2021 BSA 2.17 06/24/2021 Respiratory Rate 14.00 06/24/2021 Intravascular Systolic 140 06/24/2021 Intravascular Diastolic 80 06/24/2021 Oxygen Saturation 97.00 06/24/2021 Heart Beat 74.00 06/24/2021 Pain Scale 0.00 09/11/2021 Heart Beat 85.00 09/11/2021 Respiratory Rate 14.00 09/11/2021 Oxygen Saturation 96.00 09/11/2021 Weight 228.00 09/11/2021 Pain Scale 0.00 09/11/2021 BMI 35.71 09/11/2021 BSA 2.14 09/11/2021 Body Temperature 98.20 09/11/2021 Intravascular Systolic 192 09/11/2021 Intravascular Diastolic 98 09/11/2021 Height 67.00 10/07/2021 Body Temperature 98.70 10/07/2021 Heart Beat 78.00 10/07/2021 Oxygen Saturation 97.00 10/07/2021 Intravascular Systolic 144 10/07/2021 Intravascular Diastolic 80 10/07/2021 BSA 2.13 10/07/2021 Pain Scale 0.00 10/07/2021 Weight 226.00 10/07/2021 Height 67.00 10/07/2021 BMI 35.40 10/07/2021 Respiratory Rate 14.00 10/30/2021 Oxygen Saturation 98.00 10/30/2021 Heart Beat 85.00 10/30/2021 Body Temperature 98.10 10/30/2021 BSA 2.13 10/30/2021 Intravascular Systolic 150 10/30/2021 Intravascular Diastolic 80 10/30/2021 Height 67.00 10/30/2021 Weight 227.00 10/30/2021 Pain Scale 0.00 10/30/2021 Respiratory Rate 14.00 10/30/2021 BMI 35.55 11/14/2021 BSA 2.13 11/14/2021 BMI 35.36 11/14/2021 Height 67.00 11/14/2021 Weight 225.80 11/14/2021 Pain Scale 2.00 11/14/2021 Intravascular Systolic 140 11/14/2021 Intravascular Diastolic 80 11/14/2021 Oxygen Saturation 98.00 11/14/2021 Respiratory Rate 16.00 11/14/2021 Body Temperature 98.20 11/14/2021 Heart Beat 78.00 11/28/2021 Body Temperature 98.60 11/28/2021 Heart Beat 68.00 11/28/2021 Respiratory Rate 16.00 11/28/2021 Oxygen Saturation 98.00 11/28/2021 BSA 2.14 11/28/2021 Pain Scale 0.00 11/28/2021 Weight 228.00 11/28/2021 Height 67.00 11/28/2021 BMI 35.71 11/28/2021 Intravascular Systolic 140 11/28/2021 Intravascular Diastolic 82 12/25/2021 Weight 227.00 12/25/2021 Height 67.00 12/25/2021 BMI 35.55 12/25/2021 BSA 2.13 12/25/2021 Body Temperature 98.10 12/25/2021 Heart Beat 76.00 12/25/2021 Respiratory Rate 16.00 12/25/2021 Oxygen Saturation 99.00 12/25/2021 Intravascular Systolic 152 12/25/2021 Intravascular Diastolic 90 12/25/2021 Pain Scale 0.00 01/01/2022 Body Temperature 98.20 01/01/2022 Heart Beat 72.00 01/01/2022 Respiratory Rate 16.00 01/01/2022 Oxygen Saturation 99.00 01/01/2022 BSA 2.13 01/01/2022 Pain Scale 0.00 01/01/2022 Weight 225.00 01/01/2022 Height 67.00 01/01/2022 BMI 35.24 01/01/2022 Intravascular Systolic 162 01/01/2022 Intravascular Diastolic 90 01/31/2022 BMI 35.24 01/31/2022 BSA 2.13 01/31/2022 Height 67.00 01/31/2022 Weight 225.00 01/31/2022 Pain Scale 0.00 01/31/2022 Intravascular Systolic 168 01/31/2022 Intravascular Diastolic 100 01/31/2022 Oxygen Saturation 99.00 01/31/2022 Respiratory Rate 16.00 01/31/2022 Heart Beat 83.00 01/31/2022 Body Temperature 98.50 03/04/2022 Pain Scale 0.00 03/04/2022 Intravascular Systolic 162 03/04/2022 Intravascular Diastolic 92 03/04/2022 Oxygen Saturation 99.00 03/04/2022 Respiratory Rate 16.00 03/04/2022 Weight 226.00 03/04/2022 Body Temperature 98.40 03/04/2022 BSA 2.13 03/04/2022 BMI 35.40 03/04/2022 Height 67.00 03/04/2022 Heart Beat 70.00 05/27/2022 BSA 2.12 05/27/2022 Body Temperature 98.60 05/27/2022 Heart Beat 77.00 05/27/2022 Respiratory Rate 16.00 05/27/2022 Oxygen Saturation 99.00 05/27/2022 Intravascular Systolic 130 05/27/2022 Intravascular Diastolic 90 05/27/2022 Pain Scale 0.00 05/27/2022 Weight 223.00 05/27/2022 Height 67.00 05/27/2022 BMI 34.93 08/26/2022 BSA 2.15 08/26/2022 Body Temperature 98.30 08/26/2022 Heart Beat 76.00 08/26/2022 Respiratory Rate 16.00 08/26/2022 BMI 36.02 08/26/2022 Intravascular Systolic 160 08/26/2022 Intravascular Diastolic 90 08/26/2022 Pain Scale 0.00 08/26/2022 Weight 230.00 08/26/2022 Height 67.00 08/26/2022 Oxygen Saturation 99.00 12/01/2022 BSA 2.14 12/01/2022 BMI 35.80 12/01/2022 Height 67.00 12/01/2022 Weight 228.60 12/01/2022 Pain Scale 0.00 12/01/2022 Intravascular Systolic 125 12/01/2022 Intravascular Diastolic 80 12/01/2022 Oxygen Saturation 99.00 12/01/2022 Respiratory Rate 16.00 12/01/2022 Body Temperature 97.90 12/01/2022 Heart Beat 74.00 03/04/2023 BMI 36.07 03/04/2023 Height 67.00 03/04/2023 Weight 230.30 03/04/2023 Pain Scale 0.00 03/04/2023 BSA 2.15 03/04/2023 Oxygen Saturation 99.00 03/04/2023 Respiratory Rate 16.00 03/04/2023 Heart Beat 64.00 03/04/2023 Body Temperature 97.50 03/04/2023 Intravascular Systolic 145 03/04/2023 Intravascular Diastolic 99 06/10/2023 Body Temperature 98.30 06/10/2023 Heart Beat 78.00 06/10/2023 Respiratory Rate 16.00 06/10/2023 Oxygen Saturation 99.00 06/10/2023 BSA 2.15 06/10/2023 Pain Scale 0.00 06/10/2023 Weight 230.20 06/10/2023 Height 67.00 06/10/2023 BMI 36.05 06/10/2023 Intravascular Systolic 150 06/10/2023 Intravascular Diastolic 90 08/26/2023 BMI 35.83 08/26/2023 BSA 2.14 08/26/2023 Height 67.00 08/26/2023 Weight 228.80 08/26/2023 Pain Scale 0.00 08/26/2023 Intravascular Systolic 135 08/26/2023 Intravascular Diastolic 98 08/26/2023 Oxygen Saturation 99.00 08/26/2023 Respiratory Rate 16.00 08/26/2023 Heart Beat 74.00 08/26/2023 Body Temperature 98.00 12/23/2023 BSA 2.14 12/23/2023 BMI 35.62 12/23/2023 Height 67.00 12/23/2023 Weight 227.40 12/23/2023 Body Temperature 97.90 12/23/2023 Intravascular Systolic 136 12/23/2023 Intravascular Diastolic 90 12/23/2023 Oxygen Saturation 99.00 12/23/2023 Respiratory Rate 16.00 12/23/2023 Heart Beat 74.00 12/23/2023 Pain Scale 0.00 06/29/2024 Body Temperature 98.00 06/29/2024 Heart Beat [...]
--- OUTSIDE RECORDS SUMMARY | 2025-01-28 19:35 | XMS_ITS ---
Author Name Interface, [email or web address] lity Address [address] [place] [id number] [facility] Address [facility] [address] [address] Allergies and Adverse Reactions Plan Reason for Visit Encounters Diagnostic Results Medications Problems Vital Signs
--- OUTSIDE RECORDS SUMMARY | 2025-01-28 19:35 | XMS_ITS | Clinical Summary ---
Author Organization [facility] Address [address] [place] [address] Care Team Providers Care Enrollment Clerk Name Role Phone Unavailable Primary Care Provider Unavailabl e Source Comments Patient records contain information from all sites at [facility]. For routine questions regarding patient records, call [phone] during business hours, M-F 8:00 AM - 5:00 PM Central Time. Record requests for emergency care only can be directed to [phone] at any time.[facility] Allergies Active Allergy Reactions Criticality Noted Date Comments Parish Inhibitors Cough 09/02/2006 Losartan Cough 01/10/2009 Penicillins Hives (Reselect Reaction) 2 Medications * This document contains information received from the source organization and may not represent a complete record from that organization. aspirin 81 mg chewable tablet Chew 1 tablet daily. 4 Active atenolol (for_TENORMIN) 50 mg tablet Take by mouth daily. 2 Active MV-MN/IRON/FOLI C ACID/HERB 190 (VITAMIN D3 COMPLETE ORAL) Take by mouth daily. 4 Active FLAXSEED OIL ORAL Take by mouth daily. 4 Active MULTIVITAMIN ORAL Take by mouth daily. 4 Active OMEGA-3 FATTY ACIDS-FISH OIL ORAL Take by mouth daily. 4 Active coenzyme Q10 (CO Q-10) 10 mg capsule Take by mouth daily. 4 Active cholecalciferol (VITAMIN D3) 1,000 Unit capsule Take 1,000 Units by mouth. 4 Active ibuprofen (ADVIL,MOTRIN) 200 mg tablet Take 200 mg by mouth. 7 Active atenolol (TENORMIN) 25 mg tablet TK 1 T PO D 7 Active albuterol (PROVENTIL HFA,VENTOLIN HFA) 90 mcg/actuation inhaler Inhale 1-2 puffs. 9 Active COQ10, LIPOSOMAL UBIQUINOL, ORAL Acti ve omega 3-doy-tkd-fish oil (fish oil) 1,000 mg (120 mg-180 mg) capsule Daily Active multivitamin-Ca -iron-minerals tablet Daily Active calcium carbonate (Oyster Shell Calcium 500) 1,250 mg (500 mg calcium) tablet Daily Active sennosides (SENOKOT) 8.6 mg tablet Take 8.6 mg by mouth. 2 Active polyethylene glycol (MIRALAX) 17 gram/dose oral powder Take by mouth. 2 Active miconazole (MICOTIN) 2 % vaginal cream Daily 1 Active ketoconazole (NIZORAL) 2 % cream Daily 1 Active apixaban (ELIQUIS) 5 mg tablet Take 5 mg by mouth. 2 Active fluconazole (DIFLUCAN) 150 mg tablet As Directed 1 Active clobetasoL (TEMOVATE) 0.05 % cream APPLY 1 GRAM TOPICALLY EVERY DAY AT BEDTIME DAILY FOR 4 WEEKS, EVERY OTHER DAY FOR 4 WEEKS AND THEN TWICE WEEKLY 2 Active atenoloL-chlort halidone (TENORETIC) 100-25 mg per tablet 25mg 1/day Active coQ10, liposomal ubiquinol, 100 mg/5 mL suspension Coenzyme Q10 Oral active Active apixaban (Eliquis) 2.5 mg tablet 5mg 2/day Active fluticasone propionate (FLONASE) 50 mcg/actuation nasal spray Administer 2 sprays into each nostril daily. 16 g 11 3 Active Additional Information Patient not taking.Reported on 09/08/2023 magnesium oxide 500 mg capsule Take 1 tablet by mouth daily. 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:Pathologic stage from 05/02/2021:FIGO Stage IIIA(pT1b, pN1a, cM0) - Unsigned Immunizations Immunization Administration Dates Next Due Influenza, Unspecified 02/22/2009,02/25/2008,,03/24/2003 Td (Adult), adsorbed 01/10/2009 Family History Medical History Relation Name Comments Psychiatric Brother brother Alcohol abuse Father father Diabetes Father father Uterine cancer Mother Relation Name Status Comments Brother brother Alive Father father Alive Mother Social History Tobacco Use Types Packs/Day Years Used Date Smoking Tobacco: Never Smokeless Tobacco: Never Tobacco Cessation:Counseling Given: Not Answered Alcohol Use Standard Drinks/Week Comments Yes 0 (1 standard drink = 0.6 oz pur e alcohol) Rare Humiliation, Afraid, Rape, and Kick questionnair e Answer Date Recorded Within the last year, have y ou been afraid of your partner or ex-partner? No 12/16/2021 Within the last year, have y ou been humiliated or emotionally abused in other ways by your partner or ex-partner? No Within the last year, have y ou been kicked, hit, slapped, or otherwise physically hurt by your partner or ex-partner? No 12/16/2021 Within the last year, have y ou been raped or forced to have any kind of sexual activity by your partner or ex-partner? No 12/16/2021 Hunger Vital Sign Answer Date Recorded Within the past 12 months, y ou worried that your food would run out before you got the money to buy more. Never true 06/14/19 25 Within the past 12 months, t he food you bought just didn't last and you didn't have money to get more. Never true 06/14/2024 PRAPARE - Transportation Answer Date Re corded In the past 12 months, has l ack of transportation kept you from medical appointments or from getting medications? No 05/22 In the past 12 months, has l ack of transportation kept you from meetings, work, or from getting things needed for daily living? No 06/14/2024 Housing Stability Answer Date Recorded What is your living situation today? I have a [facility] place to live 06/14/2024 Education Answer Date Recorded What is the highest level of school you have completed or the highest degree you have received? 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 on file Not on file Not on file Last Filed Vital Signs Vital Sign Reading Time Taken Comments Blood Pressure 175/85 07/24/2021 12:53 PM CDT Pulse 79 07/24/2021 12:53 PM CDT Temperature 36.3 C (97.3 F) 07/24/2021 12:53 PM CDT Respiratory Rate 15 03/25/2017 3:48 PM DYE MAKER Oxygen Saturation - - Inhaled Oxygen Concentration - - Weight 104 kg (228 lb 6.3 oz) 07/24/2021 12:53 P M CDT Height - - Body Mass Index - - Plan of Treatment Health Maintenance Due Date Last Done Comments DTaP,Tdap,and Td Vaccines (1 - Tdap) 01/11/2009 01/10/2009 Zoster Vaccines (1 of 2) 06/13/2013 04/18/2013 Pneumococcal vaccine (50+ years) (2 of 2 - PCV) 01/19/2016 01/18/2015, 01/18/2011, 05/21/2010 RSV vaccine - (32-36 weeks) or 50+ years (1 - 1-dose 75+ series) 01/31/2019 Depression Screening (Annual PHQ-2) 04/20/2024 Fall Risk Screen (Annual) 04/20/2024 COVID-19 Vaccine ( season) 2024 01/24/2021, 06/26/2020, 06/05/2020 Influenza Vaccine (#1) 2024 , 01/18/2021, 03/24/2018, Additional history exists HPV Vaccines Aged Out No longer eligi ble based on patient's age to complete this topic IPV Vaccines Aged Out No longer eligi ble based on patient's age to complete this topic Insurance [facility]
--- OUTSIDE RECORDS SUMMARY | 2025-01-28 19:35 | XMS_ITS ---
Author Organization [facility] Address [address] [place] [address] Care Team Providers Care Metal Building Assembler Name Role Phone Unavailable Primary Care Provider Unavailabl e Active Problems * This document contains information received from the source organization and may not represent a complete record from that organization. 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 Past Treatment and Therapy Plans No past plan information found. Past Radiation Episodes * IMRT: Left VulvaOverview* First Treatment Date Last Treatment Date Treatment Site Technique Goal Episode Provider 06/24/2021 07/26/2021 Left Vulva IMRT Curative * Linked Problems Malignant Neoplasm Of Vulva Treatment Courses* Course 1xVulva 06/24/2021 - 07/26/2021 Treatment Period Fraction Dose Fractions Total Dose Plans Planned [id number] 06/24/2021 - 07/26/2021 225 cGy 25 / 25 5 ,625 cGy Reference Points Delivered [id number] 06/24/2021 - 07/26/2021 5,625 cGy
--- OUTSIDE RECORDS SUMMARY | 2025-01-28 19:35 | XMS_ITS ---
Author Name Interface, [id number] lity Address [address] [place] [address] [facility] Address [address] [place] [address] Allergies and Adverse Reactions Medication/Group Name Reaction Severity Date Penicillins 01/04/2025 MATTHIAS Inhibitors 01/04/2025 losartan 01/04/2025 Plan Date Type Value 01/04/2025 APPOINTMENT OV 30 MIN Reason for Visit OV 30 MIN Encounters Date Name 01/04/2025 Vulvar cancer Medications Date Name Route Dose Frequency Instructions Start Date End Date Status Fill Status Indication 03/03 Coenzym e Q10 Oral active 03/03 Flaxsee d Oil active 03/03 [place] 3-DHA-E PA-Fish Oil Oral Liquid 1,600 mg-500 [...] Skin abscess Active Perianal abscess (disorder) Active Notes Section * [employer] Follow-Up GYNECOLOGIC ONCOLOGY FOLLOW-UP VISIT Patient Name: ADAM GONZALEZ : 1945 Date of Visit: 01/04/2025 Referring Provider: Radha Bajwa MD FACOG Attending: Eugenie Little (Gynecological/Oncology) Chief Complaint ([employer]): Surveillance?? 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 TUMOR HISTORY:* 11/07/20: Presented for genital rash. [...] due to cost. Started using aquafor and replens.?? * 02/01/21: Presented for worsening redness of the groin/rash. Given ketoconazole 2% and diflucan. Diflucan perhaps helped slightly. * 02/08/21: Interval follow up. Persistent diffuse erythema. Added miconazole to above regimen.?? * 03/28/21: Return evaluation. Left vaginal introitus with a 1.2cm area which was slightly raised thatwas not present previously. Left vulva introitus biopsy - superficial aspect of an atypical squamous proliferation with features concerning for squamous cell carcinoma.?? * 04/03/21: Return evaluation. Significant erythema, well demarcated involving the labia majora bilaterally, perineum and perianal area. Left of the introitus was a 1.2cm area of raised tissue. Biopsy - invasive well differentiated squamous cell carcinoma, DOI could not be assessed.?? * 05/02/21: Primary treatment: Underwent left radical vulvectomy and left inguinofemoral lymph node biopsy. Final pathology with well to moderately differentiated SCC of the vulva. Maximum tumor size 3.1cm, DOI 0.48cm. Closest margin >0.5cm. Associated focal dVIN, margins negative for SHAMA. Metastatic disease identified in left inguinofemoral sentinel lymph node, largest focus 0.3cm. Final stage IIIA. * 05/2021: Met with radiation oncologist in [place] to plan postoperative radiation to the left groin. ??Medical oncology consult in [place] occurred, discussing weekly cisplatin.? * 06/24/21: Received 1 cycle cisplatin - discontinued all subsequent cycles.?? * 06/24/21-07/24/21: Adjuvant RT Bilateral nodes IMRT 5625cGy in 25 fxs (Dr. Perry). Vulva spared.?? * 09/11/21: Vulva with 3x3cm erythematous, flat, ulcerated area at the 11:00 periurethral/clitoral crural area. Biopsy - dVIN, neg for carcinoma. Discussed plan for WLE.?? * 09/27/21: Pt called to report additional lesion along the right vulva. Using Clobetasol with some mild improvement but wished to come in for assessment prior to plan for WLE of new 11:00 lesion.?? * 10/17/2021:??Wide local excision of the vulva.?? 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 Vulvar biopsy at 7:00:?benign squamous mucosa, negative for inflammatory changes dysplasia and malignancy. * 01/08/2022: Recurrence #1??perineal cyst biopsy: well-differentiated SCC ([facility]) * 01/28/[address]:??Negative for distant metastatic disease.?Decreased but persistent FDG uptakeinvolving the vulvar region (max SUV 6.0, previously 8.0). ??Mildly FDG avid soft tissue thickeninginvolving the right perineal region??(max SUV 15.4). 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 Genetic Testing ([employer]): N/A ?? Interval History ([employer]) No interval changes.??Doing OK, no concerns. Using Clobetasol 2 times weekly. Hasn't noticed any bleeding or pruritus.??No new lesions/bumps. Review of Systems: A complete 14-point review of systems is negative except as noted??in the above history of present illness. 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 Non-smoker. Rare alcohol use. No illicit substances.?? Health Maintenance: Pap smear: 2019 - normal Mammogram: 2019 - normal per pt report?? Colonoscopy: N/A DEXA: N/A Vital Signs: Blood pressure: 156/88, Sitting, R arm, Regular, Pulse: 68, Temperature: 97.9 F, Respirations: 16, O2 sat: 98%, At Rest, Room Air, Pain Scale: 0, Height: 67 in, Weight: 221.9 lb, BSA: 2.11, BMI: 34.75 kg/m2 Performance Status ECOG 0 Normal activity. Fully active, able to carry on all pre-disease performance without restriction. (Date: 10/07/2021) Physical Exam ([employer]): General: Well appearing, no acute distress Extremities: Left lower extremity edema c/w previous diagnosis of lymphedema? Psych: Appropriate mood and affect. Pelvic:?? No inguinofemoral lymphadenopathy, erythematous appearance bilateral labia extending to perineum, stable since last exam - especially irritated near agglutinated clitoral cabezas but no tenderness or raised lesions, vulvectomy incision posteriorly completely healed. No masses/lesions of the vulva; no hyperkeratosis or raised lesions for biopsy. Speculum exam deferred. No bimanual exam.?? Laboratory Data: CBC Lab Results 05/09/2024 05/01/2023 03/26/2022 02/13/2022 10/08/1909/11/2021 CBC CMP Lab Results 05/09/2024 05/01/2023 03/26/2022 02/13/2022 10/08/1909/11/2021 Chemistries ? Imaging: PET/CT??01/29/2022 ([facility] [place]):??Decreased but persistent FDG uptake involving the vulvar region.?? FDG avid soft tissue thickening in the [...] inguinofemoral LND. 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 1. Recurrent vulvar cancer* S/p vulvectomy, RT + chemo in 07/2021. Completed RT to??groins only but dropped chemo after 1 week. * S/p radical excision 01/2022 for recurrence -reviewed pathology results with patient - close margin2-3 mm but all margins negative for invasive carcinoma and SHAMA?? * Recommend surveillance to every 6 months for 3 years (01/2027) with??imaging as indicated by physical exam findings * Counseled on??risk of recurrence- she is aware that the??goal of close??surveillance is to??diagnose lesions??early enough??for re-excision 2. Atrial fibrillation * Paroxysmal. Had notable A fib with RVR during surgery and post-op period. Converted back to normal rhythm.?? * On Eliquis * Recommend close follow-up with Cardiology and PCP for continued monitoring.?? 3. Lichen sclerosus* Recommended twice weekly use??of Clobetasol ointment - Rx refilled?? * Recommended??discontinuing??soap use in the vulvar area?? * Patient aware that??LS can be associated with a conversion to squamous cell carcinoma of the vulva-- occurs in up to 5% of cases.? * Earlier detection, the introduction of potent topical glucocorticoids, the more liberal use of biopsy and excision of abnormally thickened skin resistant to treatment may lead to a reduction in risk of SCC for women diagnosed with LS. ?? * Patients warrants close evaluation every 3-6 months of the affected area. ?? * Given the association with diabetes and hypothyroidism this also warrants close monitoring via PCP.?? 4. Left leg lymphedema* S/p left inguinofemoral lymph node biopsy * Working with??Lymphedema specialist at [facility] * Encouraged compression and elevation * Discussed s/sx of DVT vs. lymphedema? RETURN IN 6 MONTHS FOR SURVEILLANCE?? I spent 15 minutes reviewing the patient's chart (outside clinic and hospital documentation, labs and imaging) before seeing the patient today. I spent 15 minutes face to face with the patient, 5 minutes of which was spent interviewing and counseling the patient and 10 minutes examining the patient.?? Eugenie Little MD ?? Gynecologic Oncology - [place] [facility]?? Pain Care Management: Pain Scale: 0 Patient [...]
--- OUTSIDE RECORDS SUMMARY | 2025-01-28 19:35 | XMS_ITS ---
Author Name Interface, [id number] lity Address [address] [place] [address] [facility] Address [facility] [address] [address] Allergies and Adverse Reactions Plan Reason for Visit Encounters Immunizations Diagnostic Results Medications Problems Vital Signs
--- OUTSIDE RECORDS SUMMARY | 2025-01-28 19:35 | XMS_ITS ---
Author Name Interface, [id number] lity Address [address] [facility] [address] [place] [address] [facility] Address [address] [facility] [address] [place] [address] Allergies and Adverse Reactions Medication/Group Name Reaction Severity Date Penicillins 01/04/2025 MATTHIAS Inhibitors 01/04/2025 losartan 01/04/2025 Plan Date Type Value 01/04/2025 APPOINTMENT OV 30 MIN 06/29/2024 APPOINTMENT OV 30 MIN Reason for Visit OV 30 MIN Encounters Date Name 06/29/2024 Vulvar cancer Medications Date Name Route Dose Frequency Instructions Start Date End Date Status Fill Status Indication 03/03 Coenzym e Q10 Oral active 03/03 Flaxsee d Oil active 03/03 [place] 3-DHA-E PA-Fish Oil Oral Liquid 1,600 mg-500 [...] (disorder) Active Vital Signs Date Type Value 06/29/2024 Body Temperature 98.00 06/29/2024 Heart Beat 77.00 06/29/2024 Respiratory Rate 16.00 06/29/2024 Oxygen Saturation 98.00 06/29/2024 BSA 2.12 06/29/2024 Pain Scale 0.00 06/29/2024 Weight 224.10 06/29/2024 Height 67.00 06/29/2024 BMI 35.10 06/29/2024 Intravascular Systolic 156 06/29/2024 Intravascular Diastolic 88 Notes Section * DBAS Follow-Up GYNECOLOGIC ONCOLOGY FOLLOW-UP VISIT Patient Name: ADAM GONZALEZ : 1945 Date of Visit: 01/04/2025 Referring Provider: Radha Bajwa MD FACOG Attending: Eugenie Little (Gynecological/Oncology) Chief Complaint ([employer]): Surveillance?? History of Present Illness ([employer]): Adam Gonzalez is a 79 year [...] * 05/2021: Met with radiation oncologist in [place] to plan postoperative radiation to the left groin. ??Medical oncology consult in [place] occurred, discussing weekly cisplatin.? * 06/24/21: Received [...] 01/08/2022: Recurrence #1??perineal cyst biopsy: well-differentiated SCC ([facility]) * 01/28/[address]:??Negative for distant [...] 2-3 mm at 8-10 o'clock)?? Genetic Testing ([employer]): N/A ?? Interval History ([employer] [facility]) No interval changes.??Doing OK, no concerns. 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 Non-smoker. Rare alcohol [...] performance without restriction. (Date: 10/07/2021) Physical Exam ([employer] [facility]): General: Well appearing, no acute distress [...] 03/26/2022 02/13/2022 10/08/1909/11/2021 Chemistries ? Imaging: PET/CT??01/29/2022 ([facility] [place]):??Decreased but persistent FDG uptake involving the vulvar [...] inguinofemoral LND. Previously seen for PT at [place] ; ) * Overactive bladder * Perianal abscess (disorder) * Skin abscess * Urge incontinence of urine * Vulvar lesion Assessment & Plan ([employer]): Adam Gonzalez is a 79 year [...] node biopsy * Working with??Lymphedema specialist at [facility] * Encouraged compression and elevation * Discussed [...] Eugenie Little MD ?? Gynecologic Oncology - [place] [facility]?? Pain Care Management: Pain Scale: 0 Patient Care needs: Depressions Status: Screening Date: 01/04/2025; Plan: Patient declined treatment Psycho-Social PHQ-9 Follow-up Plan (if applicable): Smoking Status: Smoking Tobacco : Never smoker; Smokeless Tobacco : Never used smokeless tobacco; Vaping : Never vaped Eugenie Little MD Copy to: Rashad Bajwa MD FACOG (Referring) Electronically signed by Eugenie Little MD 01/04/2025 15:30 CDT * DBAS Follow-Up GYNECOLOGIC ONCOLOGY FOLLOW-UP VISIT Patient Name: ADAM GONZALEZ : 1945 Date of Visit: 06/29/2024 Referring Provider: Radha Bajwa MD FACOG Attending: Eugenie Little (Gynecological/Oncology) Chief Complaint ([employer] [facility]): Surveillance?? History of Present Illness ([employer] [facility]): Adam Gonzalez is a 79 year [...] * 05/2021: Met with radiation oncologist in [place] to plan postoperative radiation to the left groin. ??Medical oncology consult in [place] occurred, discussing weekly cisplatin.? * 06/24/21: Received [...] 01/08/2022: Recurrence #1??perineal cyst biopsy: well-differentiated SCC ([facility]) * 01/28/[address]:??Negative for distant [...] 2-3 mm at 8-10 o'clock)?? Genetic Testing ([employer]): N/A ?? Interval History ([employer] [facility]) No interval changes.??Doing OK, no concerns. 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 Rare alcohol [...] BSA: 2.12, BMI: 35.1 kg/m2 Physical Exam ([employer] [facility]): General: Well appearing, no acute distress [...] 03/26/2022 02/13/2022 10/08/1909/11/2021 Chemistries ? Imaging: PET/CT??01/29/2022 ([facility] [place]):??Decreased but persistent FDG uptake involving the vulvar [...] inguinofemoral LND. Previously seen for PT at [place] ; ) * Overactive bladder * Perianal abscess (disorder) * Skin abscess * Urge incontinence of urine * Vulvar lesion Assessment & Plan ([employer]): Adam Gonzalez is a 79 year [...] for invasive carcinoma and SHAMA?? * Recommend transitioning??surveillance to every 6 months for 3 years [...] Lichen sclerosus* Recommended twice weekly use??of Clobetasol ointment?? * Recommended??discontinuing??soap use in the vulvar area?? [...] node biopsy * Working with??Lymphedema specialist at [facility] * Encouraged compression and elevation * Discussed [...] Eugenie Little MD ?? Gynecologic Oncology - [place] [facility]?? Pain Care Management: Pain Scale: 0 [...]
--- OUTSIDE RECORDS SUMMARY | 2025-01-28 19:36 | XMS_ITS | Clinical Summary ---
Author Organization [facility] Address [address] [place] [id number] Care Team Providers Care Bill Distributor Name Role Phone Carmen Wolf MD Primary Care Provider Allergies Active Allergy Reactions Criticality Noted Date Comments Parish Inhibitors Cough 09/02/2006 Losartan Cough 01/10/2009 Penicillins Rash 12/30/2011 Per the Antimicrobial Stewardship Team 02/05: No similarities in side chains for PCN and Ancef, very low to no risk of cross-reactivity. Medications flaxseed oil 1,000 mg cap Take 1 capsule by mouth once daily. 0 4 Active coenzyme q10 100 mg cap Take 1 capsule by mouth once daily. 0 0 Active apixaban (Eliquis) 5 mg tabletIndicatio ns:Paroxysmal A-fib (HC) Take 1 Tablet (5 mg) by mouth two times daily. Needs cardiology appt for further refills. Call to schedule. 200 Tablet 3 5 Active atenoloL (TENORMIN) 25 mg tabletIndicatio ns:Paroxysmal A-fib (HC) Take 1 Tablet (25 mg) by mouth once daily. Needs cardiology appt for further refills. Call to schedule. 100 Tablet 3 5 Active clobetasol (TEMOVATE) 0.05 % creamIndication s:Lichen sclerosus Apply a thin layer to the affected area twice weekly. 45 g 1 5 Active WalkerIndicatio ns:Chronic right-sided low back pain with right-sided sciatica Walker with wheels,seat,arora d brakes,and basket for home use. Length of need 99 weeks. 1 Each 5 Active Active Problems Patient Care Coordination No te Formatting of this note is d ifferent from the original. HF/Structural/Prevention Research Eligibility Review Date: 05/09/19 Upcoming Visit Location: [facility] Age: 74 y.o. Medicare/Medicaid Body mass index is 37.27 kg/m . Social History Tobacco Use Smoking Status Never Smoker Smokeless Tobacco Never Used Social History Substance and Sexual Activity Alcohol Use Yes Frequency: Monthly or less Drinks per session: 1 or 2 Binge frequency: Never Comment: rare wine/ couple glasses every 3 months Comments: HF: DNQ Structural: DNQ Prevention: No diabetes Vesalius: No hx CAD, HF, TIA/CVA, BP well controlled Problem Noted Date Diagnosed Date Urge incontinence of urine 05/09/2024 Lymphedema of lower extremity 05/09/2024 Morbid (severe) obesity due to excess calories 0 05/09/2024 Overactive bladder 03/26/2022 Lichen sclerosus 03/26/2022 s/p vulvectomy 05/02/2021 Vulvar cancer 04/26/2021 Atrial fibrillation 05/04/2007 Other and unspecified hyperlipidemia 09/02/2006 Unspecified essential hypertension 09/02/2006 Irritable bowel syndrome 09/02/2006 Anal fissure 09/02/2006 Resolved Problems Problem Noted Date Diagnosed Date Resolved Date Diverticulosis of colon (wit hout mention of hemorrhage) 09/02/2006 12/22/2007 Immunizations Immunization Administration Dates Next Due AMB Influenza, IIV3 (Age >=3 years)(Flu Clinic Only) 02/05/2011,02/25/2008 Amb Influenza, Inact (High-d ose) (Flu Clinic Only) 03/07/2014 COVID-19 vaccine ([employer] 30mcg/0.3mL) JETHRO JOHNSON 01/24/2021,06/26/2020,06/05/2020 Covid-19 Vaccine (Unspecified) 01/22/2021,2001 Influenza Virus, Unspecified 01/29/2021, 01/18/2021,02/22/2009,2007,03/04/2007,03/24/2003 Influenza, High-dose Inactivated 03/24/2018,0112/2012 Influenza, IIV3 (Age 6-35 mos) 02/05/2011,2008 Influenza, IIV3 (Age >=3 years) 03/28/20 13,02/04/2010,03/04/2007,2002 Influenza,CCIIV4 PRESERV FREE 03/10/2016 Pneumococcal Poly,23-Valent (Pneumovax) 05/21/2010 Pneumococcal, Unspecified 01/18/2015,01/18/2011 Td (Age >=7 Years) 01/10/2009,11/17/1998 Td, Preservative Free (age > = 7 Years) 01/10/2009 Zoster (Zostavax-ZVL, live) 04/18/2013 Family History Medical History Relation Name Comments Psychiatric illness Brother mental i llness Alcohol/Drug Father alcohol Diabetes Father Cancer Mother cervical cancer Cancer-colon Neg. 1 Cancer-ovarian Neg. 2 Cancer-breast No Family History Relation Name Status Comments Brother Father Mother Neg. 1 Neg. 2 Social History Tobacco Use Types Packs/Day Years Used Date Smoking Tobacco: Never Smokeless Tobacco: Never Tobacco Cessation:Counseling Given: Yes Alcohol Use Standard Drinks/Week Comments Yes 0 (1 standard drink = 0.6 oz pure alcohol) rare wine/ couple glasses every 3 months PHQ-2 Answer Date Recorded PHQ-2 TOTAL SCORE 0 05/09/2024 Social Connections Answer Date Recorded Do you often feel lonely or isolated from those around you? 0 05/05/2024 Financial Resource Strain Answer Date R ecorded Difficulty of Paying Living Expenses 3 05/05/2024 Difficulty of Paying Living Expenses Not on file 05/05/2024 Food Insecurity Answer Date Recorded Do you worry your food will run out before you are able to buy more? 1 05/05/2024 Transportation Needs Answer Date Record ed Does lack of transportation keep you from medica l appointments? 1 05/05/2024 Does lack of transportation keep you from work, meetings or getting things that you need? 1 05/05/2024 Housing Stability Answer Date Recorded What is your housing situation today? 1 05/05/2024 Utilities Answer Date Recorded Do you have trouble paying f or utilities (for example, heat, electricity, water, phone)? 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 Gender Identity Not on file Sexual Orientation Not on file Obstetrics History Last Filed Vital Signs Vital Sign Reading Time Taken Comments Blood Pressure 148/79 07/05/2024 1:05 PM CDT Pulse 66 07/05/2024 1:05 PM CDT Temperature 36 C (96.8 F) 02/17/2022 4:30 PM CDT Respiratory Rate 16 02/17/2022 4:15 PM CDT Oxygen Saturation 97% 07/05/2024 1:05 PM CDT Inhaled Oxygen Concentration - - Weight 101.4 kg (223 lb 9.6 oz) 07/05/2024 1:05 PM CDT Height 168.6 cm (5' 6.38) 05/09/2024 1:13 PM CS T Body Mass Index 35.68 05/09/2024 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 Plan of Treatment Health Maintenance Due Date Last Done Comments DEXA/DXA scan for age 65+ 01/31/2009 Zoster (shingles) series for age 50+ (2 of 3) 06/13/2013 04/18/2013 Pneumococcal series for age 50+ (2 of 2 - PCV) 01/19/2016 01/18/2015, 01/18/2011, 05/21/2010 Tetanus booster 01/10/2019 01/10/2009, 12/20, 11/17/1998 RSV vaccine for adults or (1 - 1-dose 75+ series) 01/31/2019 COVID-19 vaccine series ( season) 2024 01/24/2021, 01/22/2021, 06/26/2020, Additional history exists Influenza Vaccine (#1) 2024 , 01/18/2021, 03/24/2018, Additional history exists BMI (ht and wt on same day) for age 18+ 05/09/2025 05/09/2024, 04/23/2023, 03/26/2022, Additional history exists Depression screening for age 12+ 05/09/2025 05/09/2024, 04/23/2023, 03/26/2022, Additional history exists Medicare Wellness for age 65+ 05/10/2025 05/09/2024, 04/23/2023, 03/26/2022 Hepatitis B series for 19+ Aged Out N o longer eligible based on patient's age to complete this topic Insurance MEDICARE PART A HB ONLY [facility] Advance Directives * Full Code (Latest Code Status on File) Date Activated Date Inactivated Comments 02/17/2022 1:01 PM 02/17/2022 10:34 PM Question Answer Comments Code Status Discussion: Unable to Assess Preferences, Provider to review later * Full Code Date Activated Date Inactivated Comments 10/17/2021 8:42 AM 10/17/2021 3:55 PM Question Answer Comments Code Status Discussion: Unable to Assess Preferences, Provider to review later * Full Code Date Activated Date Inactivated Comments 05/03/2021 8:13 AM 05/03/2021 2:26 PM Question Answer Comments Code Status Discussion: Reviewed Preferences * Full Code Date Activated Date Inactivated Comments 05/03/2021 8:13 AM 05/03/2021 8:13 AM Question Answer Comments Code Status Discussion: Reviewed Preferences * Full Code Date Activated Date Inactivated Comments 05/02/2021 12:13 PM 05/03/2021 8:13 AM Question Answer Comments Code Status Discussion: Unable to Assess Preferences, Provider to review later Care Teams Bill Distributor Relationship Specialty Start Date End Date Carmen Wolf MD [address] [place] [address] PCP - General Family Practice 10/17/21
--- OUTSIDE RECORDS SUMMARY | 2025-01-28 19:36 | XMS_ITS ---
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 History of Present Illness (Civil Engineer'S Aide Oncology): Adam Gonzalez is a 79 year [...] * 05/2021: Met with radiation oncologist in [place] to plan postoperative radiation to the left groin. ??Medical oncology consult in [place] occurred, discussing weekly cisplatin.? * 06/24/21: Received [...] 01/08/2022: Recurrence #1??perineal cyst biopsy: well-differentiated SCC ([facility]) * 01/28/[address]:??Negative [...] 2-3 mm at 8-10 o'clock)?? Genetic Testing (Civil Engineer'S Aide Oncology): N/A ?? Interval History (Civil Engineer'S Aide Oncology) No interval changes.??Doing OK, no concerns. 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 Non-smoker. Rare alcohol [...] performance without restriction. (Date: 10/07/2021) Physical Exam (Civil Engineer'S Aide Oncology): General: Well appearing, no acute distress [...] 03/26/2022 02/13/2022 10/08/1909/11/2021 Chemistries ? Imaging: PET/CT??01/29/2022 ([facility] [place]):??Decreased but persistent FDG uptake involving the vulvar [...] inguinofemoral LND. Previously seen for PT at [place] ; ) * Overactive bladder * Perianal abscess (disorder) * Skin abscess * Urge incontinence of urine * Vulvar lesion Assessment & Plan (Civil Engineer'S Aide Oncology): Adam Gonzalez is a 79 year [...] node biopsy * Working with??Lymphedema specialist at [facility] * Encouraged compression and elevation * [...] Eugenie Little MD ?? Gynecologic Oncology - [place] [facility]?? Pain Care Management: Pain Scale: 0 [...]
--- OUTSIDE RECORDS SUMMARY | 2025-01-28 19:36 | XMS_ITS ---
Author Name Interface, [id number] lity Address [address] [place] [id number] [facility] Address [facility] [address] Allergies and Adverse Reactions Plan Reason for Visit Encounters Diagnostic Results Medications Problems Vital Signs
[2025-01-28 19:48] VITALS: BP 177/82; PULSE 66; RESP 18; TEMP 36.1; O2SAT 95; BMI 35.2
--- NOTE | 2025-01-28 20:46 | CRLHL7_ITS ---
For Patients: As a result of the Century Cures Act, medical imaging exams and procedure reports are released immediately into your electronic medical record. You may view this report before your referring provider. If you have questions, please contact your health care provider. Indication: Back pain, nausea Technique: Dissection protocol. Noncontrast CT of the chest and postcontrast CTA of the chest, abdomen, and pelvis with multiplanar reformats following 95 mL Isovue 370 IV. Axial MIP images obtained. Comparison: PET-CT performed 05/31/2021 Findings: Chest: Lungs: No consolidation. No effusion. No pneumothorax. Allowing for respiratory motion degradation, favor no new or enlarging pulmonary nodules when compared to prior PET-CT with the largest in the left lung base measuring 6 millimeters. Mediastinum: No acute abnormality appreciated. Unchanged aneurysmal dilation of the ascending aorta measuring 4.3 cm. Calcified coronary arterial and aortic atherosclerosis again demonstrated. Lymph nodes: No gross lymphadenopathy. Soft tissues: No acute abnormality appreciated. Bones: No acute abnormality appreciated. Degenerative changes of the spine and shoulders. Abdomen and Pelvis: Hepatobiliary: No significant parenchymal abnormality is appreciated. Spleen: Unremarkable. Pancreas: No acute abnormality appreciated. Adrenal glands: No acute abnormality appreciated. Kidneys: No significant parenchymal abnormality appreciated. No visualized calculi. No hydronephrosis. Bowel: No obstruction. No focal perienteric or pericolonic stranding is appreciated. The appendix is visualized and appears unremarkable. Vascular: No acute abnormality appreciated. Multiple infrarenal abdominal aortic aneurysms are again demonstrated. These creased in size with the largest noted along the distal aorta measuring 4.1 cm, previously 3.2 cm. Moderate narrowing at the origin of the celiac axis. Lymph nodes: No gross lymphadenopathy. Peritoneum: No free air. No free fluid. : No acute abnormality appreciated. Soft tissues: No acute abnormality appreciated. Bones: No acute fracture. No lytic or blastic lesion. Degenerative changes of the spine and pelvis. Impression: Chronic findings as above with no acute abnormality appreciated. Increased size out infrarenal abdominal aortic aneurysm now measuring 4.1 cm, previously 3.2 cm. Please note that all CT scans at this facility use dose modulation, iterative reconstruction, and/or weight-based dosing when appropriate to reduce radiation dose to as low as reasonably achievable. Dictated by Zander Vasquez MD @ 01/29/2025 12:02:38 AM (Electronically Signed)
--- NOTE | 2025-01-28 20:50 | ED_ITS ---
HPI - General Adult General Chief complaint: Back Injury/Pain <Gisell Gary MD - Last Filed: 01/29/25 00:34> Stated complaint: Back Pain, Nausea <Gisell Gary MD - Last Filed: 01/29/25 00:34> Time Seen by Provider: 01/28/25 20:39 <Gisell Gary MD - Last Filed: 01/29/25 00:34> Source: patient <Gisell Gary MD - Last Filed: 01/29/25 00:34> Mode of arrival: ambulatory <Gisell Gary MD - Last Filed: 01/29/25 00:34> Limitations: no limitations <Gisell Gary MD - Last Filed: 01/29/25 00:34> History of Present Illness HPI narrative: 79-year-old female with a history of paroxysmal atrial fibrillation on anticoagulation therapy, lichen sclerosis and 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 Pain is located across the mid back and radiates to the left and the right. Nothing seems to make it better or worse. The pain started 4 days ago and was present for about 15 minutes on Thursday, . On Thursday, it lasted longer. Today the pain started and has not subsided. She states that 2 of those days she was just sitting in her recliner when the pain started, on the 3rd day she was walking around the store. She came home laid down in the pain went away. Today she was at home when the pain started but again it has not stopped. It is not worse with movement. Does not radiate down the legs or upper back. She denies any urinary symptoms such as frequency, urgency or dysuria. No fevers or chills. No diarrhea or constipation. No vomiting, mild nausea. Appetite has been normal. Patient is on Atenelol, Eliquis. She has not taken her Eliquis today. <Gisell Gary MD - Last Filed: 01/29/25 00:34> Related Data Home medications: Home Medications ?Medication ?Instructions ?Recorded ?Confirmed No Known Home Medications 11/23/24 09/07/12 <Gisell Gary MD - Last Filed: 01/29/25 00:34> Allergies/adverse reactions: Allergies Allergy/AdvReac Type Severity Reaction Status Date / Time No Known Drug Allergies Allergy Verified 01/10/25 09:17 <Gisell Gary MD - Last Filed: 01/29/25 00:34> Review of Systems Status of ROS: Reports: 10 or more systems reviewed and unremarkable except as noted in History and below <Gisell Gary MD - Last Filed: 01/29/25 00:34> [facility] Social History: Social History Smoking Status: Never smoker Do you use any of these nicotine containing products: None How often do you have a drink containing alcohol: never How often do you have six or more drinks on one occasion: Never AUDIT-C Alcohol total score: 0 Non-prescribed substance use: marijuana (any form) service: No <Gisell Gary MD - Last Filed: 01/29/25 00:34> Exam Narrative: Exam Narrative: Overweight, well-developed patient in no acute distress. Alert and oriented. Answers questions appropriately. Mood and affect are appropriate. Thoughts are goal oriented and rational. No tangential or magical thinking noted. Patient speaks in full sentences without needing to catch her breath. HEENT: Normocephalic atraumatic. Pupils are equally round reactive to light. Extraocular muscles are intact. Conjunctivae are moist without any icterus noted. Moist mucous membranes. . Cardiovascular: Heart is regular rate and rhythm S1 and S2 are present without any murmurs. Lungs: Clear to auscultation bilaterally no wheezes rhonchi or rales are appreciated. Patient takes deep breaths without any discomfort. Abdomen: Soft and nontender nondistended with normal bowel sounds. No guarding or rebound. No masses or organomegaly appreciated. Extremities: Bilateral lower extremities are without edema. Skin: Well perfused without any obvious rashes. Back: Normal appearance. She has no tenderness over the cervical, thoracic or lumbar spine. She has no tenderness over the paraspinal musculature. Straight leg test is negative. She has no increased tenderness with movement. <Gisell Gary MD - Last Filed: 01/29/25 00:34> Const: Vital Signs, click to edit/add: Vital Signs - 24 hr 01/28/25 19:48 01/28/25 21:54 01/28/25 22:02 Temperature 97.0 F L Pulse Rate 59 L 59 L Pulse Rate [Left P ulse Oximeter] 66 Respiratory Rate 18 21 18 Blood Pressure 153/77 H 161/76 H Blood Pressure [Ri ght Upper Arm] 177/82 H Pulse Oximetry 95 94 94 Oxygen Delivery Me thod Room Air 01/28/25 23:25 01/28/25 23:31 01/29/25 00:00 Temperature Pulse Rate 73 74 69 Pulse Rate [Left P ulse Oximeter] Respiratory Rate 14 18 20 Blood Pressure 156/78 H 160/89 H Blood Pressure [Ri ght Upper Arm] Pulse Oximetry 96 96 97 Oxygen Delivery Me thod 01/29/25 00:15 01/29/25 01:00 01/29/25 01:42 Temperature Pulse Rate 69 67 64 Pulse Rate [Left P ulse Oximeter] Respiratory Rate 14 17 29 H Blood Pressure 165/84 H Blood Pressure [Ri ght Upper Arm] Pulse Oximetry 97 95 96 Oxygen Delivery Me thod 01/29/25 02:15 01/29/25 03:27 01/29/25 04:15 Temperature 98 F Pulse Rate 74 62 63 Pulse Rate [Left P ulse Oximeter] Respiratory Rate 45 H 17 12 Blood Pressure 143/78 H Blood Pressure [Ri ght Upper Arm] Pulse Oximetry 95 94 95 Oxygen Delivery Me thod 01/29/25 04:30 01/29/25 04:45 01/29/25 05:00 Temperature Pulse Rate 64 60 Pulse Rate [Left P ulse Oximeter] Respiratory Rate 18 13 18 Blood Pressure Blood Pressure [Ri ght Upper Arm] Pulse Oximetry 94 94 Oxygen Delivery Me thod 01/29/25 05:15 01/29/25 05:30 01/29/25 05:45 Temperature Pulse Rate Pulse Rate [Left P ulse Oximeter] Respiratory Rate 24 8 L 20 Blood Pressure Blood Pressure [Ri ght Upper Arm] Pulse Oximetry Oxygen Delivery Me thod 01/29/25 06:00 01/29/25 09:12 01/29/25 09:15 Temperature Pulse Rate 61 59 L Pulse Rate [Left P ulse Oximeter] Respiratory Rate 16 16 Blood Pressure Blood Pressure [Ri ght Upper Arm] Pulse Oximetry 96 95 Oxygen Delivery Me thod 01/29/25 09:30 01/29/25 09:48 01/29/25 10:00 Temperature Pulse Rate 56 L 56 L 56 L Pulse Rate [Left P ulse Oximeter] Respiratory Rate 15 20 21 Blood Pressure Blood Pressure [Ri ght Upper Arm] Pulse Oximetry 95 95 95 Oxygen Delivery Me thod 01/29/25 10:18 Temperature Pulse Rate 66 Pulse Rate [Left P ulse Oximeter] Respiratory Rate 16 Blood Pressure Blood Pressure [Ri ght Upper Arm] Pulse Oximetry 94 Oxygen Delivery Me thod <Gisell Gary MD - Last Filed: 01/29/25 00:34> Vital Signs, click to edit/add: Vital Signs - 24 hr 01/28/25 19:48 01/28/25 21:54 01/28/25 22:02 Temperature 97.0 F L Pulse Rate 59 L 59 L Pulse Rate [Left P ulse Oximeter] 66 Respiratory Rate 18 21 18 Blood Pressure 153/77 H 161/76 H Blood Pressure [Ri ght Upper Arm] 177/82 H Pulse Oximetry 95 94 94 Oxygen Delivery Me thod Room Air 01/28/25 23:25 01/28/25 23:31 01/29/25 00:00 Temperature Pulse Rate 73 74 69 Pulse Rate [Left P ulse Oximeter] Respiratory Rate 14 18 20 Blood Pressure 156/78 H 160/89 H Blood Pressure [Ri ght Upper Arm] Pulse Oximetry 96 96 97 Oxygen Delivery Me thod 01/29/25 00:15 01/29/25 01:00 01/29/25 01:42 Temperature Pulse Rate 69 67 64 Pulse Rate [Left P ulse Oximeter] Respiratory Rate 14 17 29 H Blood Pressure 165/84 H Blood Pressure [Ri ght Upper Arm] Pulse Oximetry 97 95 96 Oxygen Delivery Me thod 01/29/25 02:15 01/29/25 03:27 01/29/25 04:15 Temperature 98 F Pulse Rate 74 62 63 Pulse Rate [Left P ulse Oximeter] Respiratory Rate 45 H 17 12 Blood Pressure 143/78 H Blood Pressure [Ri ght Upper Arm] Pulse Oximetry 95 94 95 Oxygen Delivery Me thod 01/29/25 04:30 01/29/25 04:45 01/29/25 05:00 Temperature Pulse Rate 64 60 Pulse Rate [Left P ulse Oximeter] Respiratory Rate 18 13 18 Blood Pressure Blood Pressure [Ri ght Upper Arm] Pulse Oximetry 94 94 Oxygen Delivery Me thod 01/29/25 05:15 01/29/25 05:30 01/29/25 05:45 Temperature Pulse Rate Pulse Rate [Left P ulse Oximeter] Respiratory Rate 24 8 L 20 Blood Pressure Blood Pressure [Ri ght Upper Arm] Pulse Oximetry Oxygen Delivery Me thod 01/29/25 06:00 01/29/25 09:12 01/29/25 09:15 Temperature Pulse Rate 61 59 L Pulse Rate [Left P ulse Oximeter] Respiratory Rate 16 16 Blood Pressure Blood Pressure [Ri ght Upper Arm] Pulse Oximetry 96 95 Oxygen Delivery Me thod 01/29/25 09:30 01/29/25 09:48 01/29/25 10:00 Temperature Pulse Rate 56 L 56 L 56 L Pulse Rate [Left P ulse Oximeter] Respiratory Rate 15 20 21 Blood Pressure Blood Pressure [Ri ght Upper Arm] Pulse Oximetry 95 95 95 Oxygen Delivery Me thod 01/29/25 10:18 Temperature Pulse Rate 66 Pulse Rate [Left P ulse Oximeter] Respiratory Rate 16 Blood Pressure Blood Pressure [Ri ght Upper Arm] Pulse Oximetry 94 Oxygen Delivery Me thod <Rashad Gutierrez MD - Last Filed: 01/31/25 16:21> Vital Signs, click to edit/add: Vital Signs - 24 hr 01/28/25 19:48 01/28/25 21:54 01/28/25 22:02 Temperature 97.0 F L Pulse Rate 59 L 59 L Pulse Rate [Left P ulse Oximeter] 66 Respiratory Rate 18 21 18 Blood Pressure 153/77 H 161/76 H Blood Pressure [Ri ght Upper Arm] 177/82 H Pulse Oximetry 95 94 94 Oxygen Delivery Me thod Room Air 01/28/25 23:25 01/28/25 23:31 01/29/25 00:00 Temperature Pulse Rate 73 74 69 Pulse Rate [Left P ulse Oximeter] Respiratory Rate 14 18 20 Blood Pressure 156/78 H 160/89 H Blood Pressure [Ri ght Upper Arm] Pulse Oximetry 96 96 97 Oxygen Delivery Me thod 01/29/25 00:15 01/29/25 01:00 01/29/25 01:42 Temperature Pulse Rate 69 67 64 Pulse Rate [Left P ulse Oximeter] Respiratory Rate 14 17 29 H Blood Pressure 165/84 H Blood Pressure [Ri ght Upper Arm] Pulse Oximetry 97 95 96 Oxygen Delivery Me thod 01/29/25 02:15 01/29/25 03:27 01/29/25 04:15 Temperature 98 F Pulse Rate 74 62 63 Pulse Rate [Left P ulse Oximeter] Respiratory Rate 45 H 17 12 Blood Pressure 143/78 H Blood Pressure [Ri ght Upper Arm] Pulse Oximetry 95 94 95 Oxygen Delivery Me thod 01/29/25 04:30 01/29/25 04:45 01/29/25 05:00 Temperature Pulse Rate 64 60 Pulse Rate [Left P ulse Oximeter] Respiratory Rate 18 13 18 Blood Pressure Blood Pressure [Ri ght Upper Arm] Pulse Oximetry 94 94 Oxygen Delivery Me thod 01/29/25 05:15 01/29/25 05:30 01/29/25 05:45 Temperature Pulse Rate Pulse Rate [Left P ulse Oximeter] Respiratory Rate 24 8 L 20 Blood Pressure Blood Pressure [Ri ght Upper Arm] Pulse Oximetry Oxygen Delivery Me thod 01/29/25 06:00 01/29/25 09:12 01/29/25 09:15 Temperature Pulse Rate 61 59 L Pulse Rate [Left P ulse Oximeter] Respiratory Rate 16 16 Blood Pressure Blood Pressure [Ri ght Upper Arm] Pulse Oximetry 96 95 Oxygen Delivery Me thod 01/29/25 09:30 01/29/25 09:48 01/29/25 10:00 Temperature Pulse Rate 56 L 56 L 56 L Pulse Rate [Left P ulse Oximeter] Respiratory Rate 15 20 21 Blood Pressure Blood Pressure [Ri ght Upper Arm] Pulse Oximetry 95 95 95 Oxygen Delivery Me thod 01/29/25 10:18 Temperature Pulse Rate 66 Pulse Rate [Left P ulse Oximeter] Respiratory Rate 16 Blood Pressure Blood Pressure [Ri ght Upper Arm] Pulse Oximetry 94 Oxygen Delivery Me thod <Gisell Chavez MD - Last Filed: 01/29/25 10:30> Course Course ED Course: Differential diagnoses includes aortic aneurysm, aortic dissection, a typical presentation of coronary artery disease which would be the 3 most concerning ones. Hepatitis, pancreatitis, gastritis. Less likely Musculoskeletal back pain. Fentanyl and Zofran given. CBC is unremarkable. D-dimer is elevated at 0.84. Sodium is slightly low. Chemistries are otherwise unremarkable. LFTs are markedly elevated with an AST of 724, ALT of 552, alk-phos of 225 and a total bili is 0.9. Normal troponin. Normal lipase. Abdominal CT does show aortic aneurysms that are getting larger, no dissection. Given her elevated LFTs symptoms are concerning for gallbladder stones. Patient will need ultrasound which will be done in the morning. May need MRCP. Will be kept NPO overnight. Patient very concerned about dehydration-will start maintenance fluids of normal saline at 125 mL/hour for the next 8 hours. Care transferred to perri EASLEY. <Gisell Gary MD - Last Filed: 01/29/25 00:34> Differential diagnoses includes aortic aneurysm, aortic dissection, atypical presentation of coronary artery disease which would be the 3 most concerning ones. Hepatitis, pancreatitis, gastritis. Less likely Mus culoskeletal back pain. Fentanyl and Zofran given. CBC is unremarkable. D-dimer is elevated at 0.84. Sodium is slightly low. Chemistries are otherwise unremarkable. LFTs are markedly elevated with an AST of 724, ALT of 552, alk-phos of 225 and a total bili is 0.9. Normal troponin. Normal lipase. Abdominal CT does show aortic aneurysms that are getting larger, no dissection. Given her elevated LFTs symptoms are concerning for gallbladder stones. Patient will need ultrasound which will be done in the morning. May need MRCP. Will be kept NPO overnight. Patient very concerned about dehydration-will start maintenance fluids of normal saline at 125 mL/hour for the next 8 hours. Care transferred to perri EASLEY. <Rashad Gutierrez MD - Last Filed: 01/31/25 16:21> Reevaluation(s) Reevaluation #1: Matt -- Inherited patient at change of shift pending limited abdominal ultrasound. Did review records. And bandlike pain across the mid back rating it right left. Notable for rather elevated transaminases and mildly elevated bilirubin. CT abdomen pelvis was relatively unremarkable and within improved infrarenal abdominal aortic aneurysm. Concern of possible ductal stone. Consultation did occur with General surgery. Recommendations for ultrasound but hoping to wait until morning to do this. Adam has been well other than would like sleep med. Ordered for melatonin per her usual. US pending at change of shift. <Rashad Gutierrez MD - Last Filed: 01/31/25 16:21> Time of Reevaluation #2: 09:12 <Gisell Chavez MD - Last Filed: 01/29/25 10:30> Reevaluation #2: Patient's ultrasound was reviewed, there is cholelithiasis but no cholecystitis noted. She has had no return of pain since she got the IV narcotic. She states she did not sleep in she is concerned that she has had nothing to drink. Reviewed with her that she has gotten IV fluids, would ask that she withhold from eating or drinking at this point. I have ordered a CBC and comprehensive metabolic panel with the bilirubin. Her abdomen is soft, nontender, absolutely no right upper quadrant tenderness at this time. Her back pain is resolved. <Gisell Chavez MD - Last Filed: 01/29/25 10:30> Consultations Consultation #1: Did speak with Dr. Zamorano general surgeon on-call. She is aware of this patient. We have reviewed the ultrasound, the labs. Patient is pain-free at this time. Plan on discharge to home with surgical follow-up next week, return of pain back to the ER. Patient is updated on this, remains pain-free, plan to trial outpatient discharge to home. <Gisell Chavez MD - Last Filed: 01/29/25 10:30> Time: 09:49 <Gisell Chavez MD - Last Filed: 01/29/25 10:30> Vital Signs Vital signs: Initial Vital Signs Temperature 97.0 F L 01/28/25 19:48 Temperature Source Temporal Artery Scan 01/28/25 19:48 Pulse Rate 66 01/28/25 19:48 Pulse Rhythm Regular 01/28/25 19:48 Respiratory Rate 18 01/28/25 19:48 Blood Pressure 177/82 H 01/28/25 19:48 Blood Pressure Mean 113 H 01/28/25 19:48 Blood Pressure Position Sitting 01/28/25 19:48 Pulse Oximetry 95 01/28/25 19:48 Oxygen Delivery Method Room Air 01/28/25 19:48 Vital Signs Temperature 97.0 F L 01/28/25 19:48 Pulse Rate 66 01/28/25 19:48 Respiratory Rate 18 01/28/25 19:48 Blood Pressure 177/82 H 01/28/25 19:48 Pulse Oximetry 95 01/28/25 19:48 Oxygen Delivery Method Room Air 01/28/25 19:48 Temperature 98 F 01/29/25 03:27 Pulse Rate 54 L 01/29/25 10:30 Respiratory Rate 15 01/29/25 10:30 Blood Pressure 143/78 H 01/29/25 03:27 Pulse Oximetry 95 01/29/25 10:30 Oxygen Delivery Method Room Air 01/28/25 19:48 <Gisell Gary MD - Last Filed: 01/29/25 00:34> Initial Vital Signs Temperature 97.0 F L 01/28/25 19:48 Temperature Source Temporal Artery Scan 01/28/25 19:48 Pulse Rate 66 01/28/25 19:48 Pulse Rhythm Regular 01/28/25 19:48 Respiratory Rate 18 01/28/25 19:48 Blood Pressure 177/82 H 01/28/25 19:48 Blood Pressure Mean 113 H 01/28/25 19:48 Blood Pressure Position Sitting 01/28/25 19:48 Pulse Oximetry 95 01/28/25 19:48 Oxygen Delivery Method Room Air 01/28/25 19:48 Vital Signs Temperature 97.0 F L 01/28/25 19:48 Pulse Rate 66 01/28/25 19:48 Respiratory Rate 18 01/28/25 19:48 Blood Pressure 177/82 H 01/28/25 19:48 Pulse Oximetry 95 01/28/25 19:48 Oxygen Delivery Method Room Air 01/28/25 19:48 Temperature 98 F 01/29/25 03:27 Pulse Rate 54 L 01/29/25 10:30 Respiratory Rate 15 01/29/25 10:30 Blood Pressure 143/78 H 01/29/25 03:27 Pulse Oximetry 95 01/29/25 10:30 Oxygen Delivery Method Room Air 01/28/25 19:48 <Rashad Gutierrez MD - Last Filed: 01/31/25 16:21> Initial Vital Signs Temperature 97.0 F L 01/28/25 19:48 Temperature Source Temporal Artery Scan 01/28/25 19:48 Pulse Rate 66 01/28/25 19:48 Pulse Rhythm Regular 01/28/25 19:48 Respiratory Rate 18 01/28/25 19:48 Blood Pressure 177/82 H 01/28/25 19:48 Blood Pressure Mean 113 H 01/28/25 19:48 Blood Pressure Position Sitting 01/28/25 19:48 Pulse Oximetry 95 01/28/25 19:48 Oxygen Delivery Method Room Air 01/28/25 19:48 Vital Signs Temperature 97.0 F L 01/28/25 19:48 Pulse Rate 66 01/28/25 19:48 Respiratory Rate 18 01/28/25 19:48 Blood Pressure 177/82 H 01/28/25 19:48 Pulse Oximetry 95 01/28/25 19:48 Oxygen Delivery Method Room Air 01/28/25 19:48 Temperature 98 F 01/29/25 03:27 Pulse Rate 54 L 01/29/25 10:30 Respiratory Rate 15 01/29/25 10:30 Blood Pressure 143/78 H 01/29/25 03:27 Pulse Oximetry 95 01/29/25 10:30 Oxygen Delivery Method Room Air 01/28/25 19:48 <Gisell Chavez MD - Last Filed: 01/29/25 10:30> Medications Administered Medications: Discontinued Medications Generic Name Dose Route Start Last Admin Trade Name Freq PRN Reason Stop Dose Admin Fentanyl 50 mcg 01/28/25 21:25 01/28/25 21:36 Fentanyl 100 Mcg/2 Ml Inj IVP 01/28/25 21:26 50 mcg ONCE ONE Administration Sodium Chloride 1,000 mls @ 125 mls/hr 01/29/25 00:31 01/29/25 09:43 0.9 % Sodium Chloride 1000 Ml IV Infused .Q8H BREANNE Infusion Sodium Chloride 250 mls @ 250 mls/hr 01/29/25 09:39 01/29/25 09:43 0.9 % Sodium Chloride 250 Ml IV 01/29/25 10:38 250 mls/hr .Q1H ONE Administration Melatonin 3 mg 01/29/25 03:00 01/29/25 03:29 Melatonin 3 Mg Tablet PO 01/29/25 03:01 1.5 mg HS ONE Administration Ondansetron HCl 4 mg 01/28/25 21:25 01/28/25 21:41 Ondansetron 2 Mg/Ml Inj IVP 01/28/25 21:26 4 mg ONCE ONE Administration <Gisell Gary MD - Last Filed: 01/29/25 00:34> Discontinued Medications Generic Name Dose Route Start Last Admin Trade Name Freq PRN Reason Stop Dose Admin Fentanyl 50 mcg 01/28/25 21:25 01/28/25 21:36 Fentanyl 100 Mcg/2 Ml Inj IVP 01/28/25 21:26 50 mcg ONCE ONE Administration Sodium Chloride 1,000 mls @ 125 mls/hr 01/29/25 00:31 01/29/25 09:43 0.9 % Sodium Chloride 1000 Ml IV Infused .Q8H BREANNE Infusion Sodium Chloride 250 mls @ 250 mls/hr 01/29/25 09:39 01/29/25 09:43 0.9 % Sodium Chloride 250 Ml IV 01/29/25 10:38 250 mls/hr .Q1H ONE Administration Melatonin 3 mg 01/29/25 03:00 01/29/25 03:29 Melatonin 3 Mg Tablet PO 01/29/25 03:01 1.5 mg HS ONE Administration Ondansetron HCl 4 mg 01/28/25 21:25 01/28/25 21:41 Ondansetron 2 Mg/Ml Inj IVP 01/28/25 21:26 4 mg ONCE ONE Administration <Rashad Gutierrez MD - Last Filed: 01/31/25 16:21> Discontinued Medications Generic Name Dose Route Start Last Admin Trade Name Jacksonq PRN Reason Stop Dose Admin Fentanyl 50 mcg 01/28/25 21:25 01/28/25 21:36 Fentanyl 100 Mcg/2 Ml Inj IVP 01/28/25 21:26 50 mcg ONCE ONE Administration Sodium Chloride 1,000 mls @ 125 mls/hr 01/29/25 00:31 01/29/25 09:43 0.9 % Sodium Chloride 1000 Ml IV Infused .Q8H BREANNE Infusion Sodium Chloride 250 mls @ 250 mls/hr 01/29/25 09:39 01/29/25 09:43 0.9 % Sodium Chloride 250 Ml IV 01/29/25 10:38 250 mls/hr .Q1H ONE Administration Melatonin 3 mg 01/29/25 03:00 01/29/25 03:29 Melatonin 3 Mg Tablet PO 01/29/25 03:01 1.5 mg HS ONE Administration Ondansetron HCl 4 mg 01/28/25 21:25 01/28/25 21:41 Ondansetron 2 Mg/Ml Inj IVP 01/28/25 21:26 4 mg ONCE ONE Administration <Gisell Chavez MD - Last Filed: 01/29/25 10:30> Medical Decision Making Lab Data Lab results reviewed: Yes I reviewed the patient's lab results <Gisell Chavez MD - Last Filed: 01/29/25 10:30> Labs: Lab Results 01/28/25 01/28/25 01/29/25 Range/Units 20:20 21:10 09:11 WBC 7.26 6.02 (4.50-11.00) K/uL RBC 4.40 4.32 (4.00-5.20) m/uL Hgb 12.9 12.8 (12.0-16.0) gm/dL Hct 40.7 40.3 (33.0-51.0) % MCV 93 93 (80-100) fL MCH 29 30 (26-34) pg MCHC 32 32 (32-36) gm/dL RDW Coeff of She 13.5 13.8 (11.5-15.5) % Plt Count 348 334 (140-440) K/uL Neut % (Auto) 80.2 H 73.8 H (42.0-72.0) % Lymph % (Auto) 10.6 L 16.1 L (20-44) % [place] % (Auto) 7.0 7.6 (0.0-11.0) % Eos % (Auto) 1.8 2.0 (0.0-7.0) % Baso % (Auto) 0.3 0.3 (0.0-3.0) % Neut # (Auto) 5.80 4.40 (1.7-7.0) K/uL Lymph # (Auto) 0.80 L 1.00 (0.90-2.90) K/uL [place] # (Auto) 0.50 0.50 (0.00-0.90) K/UL Eos # (Auto) 0.13 0.12 (0.00-0.50) K/uL Baso # (Auto) 0.02 0.02 (0.00-0.30) K/uL Abs Immat Gran (auto) 0.01 0.01 (0.00-0.30) K/uL Imm/Tot Granulo (auto) 0.1 0.2 % D-Dimer Quant (PE/DVT) 0.84 H (0.00-0.50) ug/ml Sodium 132 L 134 L (135-149) mmol/L Potassium 3.7 3.9 (3.6-5.1) mmol/L Chloride 100 103 (96-114) mmol/L Carbon Dioxide 26 27 (20-32) mmol/L Anion Gap 6 L 4 L (7-15) mEq/L BUN 15 11 (7-30) mg/dL Creatinine 0.9 0.9 (0.5-1.5) mg/dL Estimated Creat Clear 43.63 43.63 Estimated GFR 65 65 ml/min Glucose 118 H 121 H (60-115) mg/dL Lactate 1.6 (0.5-1.9) mmol/L Calcium 9.3 9.2 (8.4-10.6) mg/dL Magnesium 2.1 (1.5-2.6) mg/dL Total Bilirubin 1.2 1.2 (0.1-1.5) mg/dL Direct Bilirubin 0.9 H 0.7 H (0.0-0.5) mg/dL AST 724 H 709 H (12-35) U/L ALT 552 H 653 H (4-35) U/L Alkaline Phosphatase 225 H 243 H (40-150) U/L Troponin I < 0.01 (0.01-0.04) ng/mL C-Reactive Protein 0.9 (0.5-1.0) mg/dL Total Protein 7.8 7.8 (6.0-8.3) g/dL Albumin 4.1 4.1 (3.3-5.0) g/dL Lipase 183 (23-300) U/L Procalcitonin 0.09 (<0.50) ng/mL Urine Color Dark yellow (Yellow) Urine Appearance Clear (Clear) Urine pH 6.5 (5.0-8.5) Ur Specific [place] 1.025 (1.000-1.030) Urine Protein 1+ A (Negative) Urine Glucose (UA) Negative (Negative) Urine Ketones Negative (Negative) Urine Blood 1+ A (Negative) Urine Nitrite Negative (Negative) Urine Bilirubin 1+ A (Negative) Urine Urobilinogen 1.0 (0.2-1.0) Ur Leukocyte Esterase Negative (Negative) Urine RBC 2-5 A (0-2) Urine WBC 0-2 (0-5) Ur Squamous Epith Cells Moderate A (None-Few) Urine Bacteria Few A (None) <Gisell Gary MD - Last Filed: 01/29/25 00:34> Lab Results 01/28/25 01/28/25 01/29/25 Range/Units 20:20 21:10 09:11 WBC 7.26 6.02 (4.50-11.00) K/uL RBC 4.40 4.32 (4.00-5.20) m/uL Hgb 12.9 12.8 (12.0-16.0) gm/dL Hct 40.7 40.3 (33.0-51.0) % MCV 93 93 (80-100) fL MCH 29 30 (26-34) pg MCHC 32 32 (32-36) gm/dL RDW Coeff of She 13.5 13.8 (11.5-15.5) % Plt Count 348 334 (140-440) K/uL Neut % (Auto) 80.2 H 73.8 H (42.0-72.0) % Lymph % (Auto) 10.6 L 16.1 L (20-44) % [place] % (Auto) 7.0 7.6 (0.0-11.0) % Eos % (Auto) 1.8 2.0 (0.0-7.0) % Baso % (Auto) 0.3 0.3 (0.0-3.0) % Neut # (Auto) 5.80 4.40 (1.7-7.0) K/uL Lymph # (Auto) 0.80 L 1.00 (0.90-2.90) K/uL [place] # (Auto) 0.50 0.50 (0.00-0.90) K/UL Eos # (Auto) 0.13 0.12 (0.00-0.50) K/uL Baso # (Auto) 0.02 0.02 (0.00-0.30) K/uL Abs Immat Gran (auto) 0.01 0.01 (0.00-0.30) K/uL Imm/Tot Granulo (auto) 0.1 0.2 % D-Dimer Quant (PE/DVT) 0.84 H (0.00-0.50) ug/ml Sodium 132 L 134 L (135-149) mmol/L Potassium 3.7 3.9 (3.6-5.1) mmol/L Chloride 100 103 (96-114) mmol/L Carbon Dioxide 26 27 (20-32) mmol/L Anion Gap 6 L 4 L (7-15) mEq/L BUN 15 11 (7-30) mg/dL Creatinine 0.9 0.9 (0.5-1.5) mg/dL Estimated Creat Clear 43.63 43.63 Estimated GFR 65 65 ml/min Glucose 118 H 121 H (60-115) mg/dL Lactate 1.6 (0.5-1.9) mmol/L Calcium 9.3 9.2 (8.4-10.6) mg/dL Magnesium 2.1 (1.5-2.6) mg/dL Total Bilirubin 1.2 1.2 (0.1-1.5) mg/dL Direct Bilirubin 0.9 H 0.7 H (0.0-0.5) mg/dL AST 724 H 709 H (12-35) U/L ALT 552 H 653 H (4-35) U/L Alkaline Phosphatase 225 H 243 H (40-150) U/L Troponin I < 0.01 (0.01-0.04) ng/mL C-Reactive Protein 0.9 (0.5-1.0) mg/dL Total Protein 7.8 7.8 (6.0-8.3) g/dL Albumin 4.1 4.1 (3.3-5.0) g/dL Lipase 183 (23-300) U/L Procalcitonin 0.09 (<0.50) ng/mL Urine Color Dark yellow (Yellow) Urine Appearance Clear (Clear) Urine pH 6.5 (5.0-8.5) Ur Specific [place] 1.025 (1.000-1.030) Urine Protein 1+ A (Negative) Urine Glucose (UA) Negative (Negative) Urine Ketones Negative (Negative) Urine Blood 1+ A (Negative) Urine Nitrite Negative (Negative) Urine Bilirubin 1+ A (Negative) Urine Urobilinogen 1.0 (0.2-1.0) Ur Leukocyte Esterase Negative (Negative) Urine RBC 2-5 A (0-2) Urine WBC 0-2 (0-5) Ur Squamous Epith Cells Moderate A (None-Few) Urine Bacteria Few A (None) <Rashad Gutierrez MD - Last Filed: 01/31/25 16:21> Lab Results 01/28/25 01/28/25 01/29/25 Range/Units 20:20 21:10 09:11 WBC 7.26 6.02 (4.50-11.00) K/uL RBC 4.40 4.32 (4.00-5.20) m/uL Hgb 12.9 12.8 (12.0-16.0) gm/dL Hct 40.7 40.3 (33.0-51.0) % MCV 93 93 (80-100) fL MCH 29 30 (26-34) pg MCHC 32 32 (32-36) gm/dL RDW Coeff of She 13.5 13.8 (11.5-15.5) % Plt Count 348 334 (140-440) K/uL Neut % (Auto) 80.2 H 73.8 H (42.0-72.0) % Lymph % (Auto) 10.6 L 16.1 L (20-44) % [place] % (Auto) 7.0 7.6 (0.0-11.0) % Eos % (Auto) 1.8 2.0 (0.0-7.0) % Baso % (Auto) 0.3 0.3 (0.0-3.0) % Neut # (Auto) 5.80 4.40 (1.7-7.0) K/uL Lymph # (Auto) 0.80 L 1.00 (0.90-2.90) K/uL [place] # (Auto) 0.50 0.50 (0.00-0.90) K/UL Eos # (Auto) 0.13 0.12 (0.00-0.50) K/uL Baso # (Auto) 0.02 0.02 (0.00-0.30) K/uL Abs Immat Gran (auto) 0.01 0.01 (0.00-0.30) K/uL Imm/Tot Granulo (auto) 0.1 0.2 % D-Dimer Quant (PE/DVT) 0.84 H (0.00-0.50) ug/ml Sodium 132 L 134 L (135-149) mmol/L Potassium 3.7 3.9 (3.6-5.1) mmol/L Chloride 100 103 (96-114) mmol/L Carbon Dioxide 26 27 (20-32) mmol/L Anion Gap 6 L 4 L (7-15) mEq/L BUN 15 11 (7-30) mg/dL Creatinine 0.9 0.9 (0.5-1.5) mg/dL Estimated Creat Clear 43.63 43.63 Estimated GFR 65 65 ml/min Glucose 118 H 121 H (60-115) mg/dL Lactate 1.6 (0.5-1.9) mmol/L Calcium 9.3 9.2 (8.4-10.6) mg/dL Magnesium 2.1 (1.5-2.6) mg/dL Total Bilirubin 1.2 1.2 (0.1-1.5) mg/dL Direct Bilirubin 0.9 H 0.7 H (0.0-0.5) mg/dL AST 724 H 709 H (12-35) U/L ALT 552 H 653 H (4-35) U/L Alkaline Phosphatase 225 H 243 H (40-150) U/L Troponin I < 0.01 (0.01-0.04) ng/mL C-Reactive Protein 0.9 (0.5-1.0) mg/dL Total Protein 7.8 7.8 (6.0-8.3) g/dL Albumin 4.1 4.1 (3.3-5.0) g/dL Lipase 183 (23-300) U/L Procalcitonin 0.09 (<0.50) ng/mL Urine Color Dark yellow (Yellow) Urine Appearance Clear (Clear) Urine pH 6.5 (5.0-8.5) Ur Specific [place] 1.025 (1.000-1.030) Urine Protein 1+ A (Negative) Urine Glucose (UA) Negative (Negative) Urine Ketones Negative (Negative) Urine Blood 1+ A (Negative) Urine Nitrite Negative (Negative) Urine Bilirubin 1+ A (Negative) Urine Urobilinogen 1.0 (0.2-1.0) Ur Leukocyte Esterase Negative (Negative) Urine RBC 2-5 A (0-2) Urine WBC 0-2 (0-5) Ur Squamous Epith Cells Moderate A (None-Few) Urine Bacteria Few A (None) <Gisell Chavez MD - Last Filed: 01/29/25 10:30> Imaging Data CT scan - abdomen: Attestation: I have reviewed the pertinent imaging results. <Gisell Gary MD - Last Filed: 01/29/25 00:34> Radiologist's impression: Technique: Dissection protocol. Noncontrast CT of the chest and postcontrast CTA of the chest, abdomen, and pelvis with multiplanar reformats following 95 mL Isovue 370 IV. Axial MIP images obtained. Comparison: PET-CT performed 05/31/2021 Findings: Chest: Lungs: No consolidation. No effusion. No pneumothorax. Allowing for respiratory motion degradation, favor no new or enlarging pulmonary nodules when compared to prior PET-CT with the largest in the left lung base measuring 6 millimeters. Mediastinum: No acute abnormality appreciated. Unchanged aneurysmal dilation of the ascending aorta measuring 4.3 cm. Calcified coronary arterial and aortic atherosclerosis again demonstrated. Lymph nodes: No gross lymphadenopathy. Soft tissues: No acute abnormality appreciated. Bones: No acute abnormality appreciated. Degenerative changes of the spine and shoulders. Abdomen and Pelvis: Hepatobiliary: No significant parenchymal abnormality is appreciated. Spleen: Unremarkable. Pancreas: No acute abnormality appreciated. Adrenal glands: No acute abnormality appreciated. Kidneys: No significant parenchymal abnormality appreciated. No visualized calculi. No hydronephrosis. Bowel: No obstruction. No focal perienteric or pericolonic stranding is appreciated. The appendix is visualized and appears unremarkable. Vascular: No acute abnormality appreciated. Multiple infrarenal abdominal aortic aneurysms are again demonstrated. These creased in size with the largest noted along the distal aorta measuring 4.1 cm, previously 3.2 cm. Moderate narrowing at the origin of the celiac axis. Lymph nodes: No gross lymphadenopathy. Peritoneum: No free air. No free fluid. : No acute abnormality appreciated. Soft tissues: No acute abnormality appreciated. Bones: No acute fracture. No lytic or blastic lesion. Degenerative changes of the spine and pelvis. Impression: Chronic findings as above with no acute abnormality appreciated. Increased size out infrarenal abdominal aortic aneurysm now measuring 4.1 cm, previously 3.2 cm. <Gisell Gary MD - Last Filed: 01/29/25 00:34> US - abdomen: Attestation: I have reviewed the pertinent imaging results. <Gisell Grullon MD - Last Filed: 01/29/25 10:30> Radiologist's impression: Patient: ADAM MCCANN Facility:?[facility] Patient ID:?[id number] Site Patient ID:?[id number]. Site :?[id number] Study:?US-Abdomen limited-01/29/2025 8:44:23 AM Ordering Physician:Dwight Jameson Final Report: INDICATION: Elevated liver function tests. TECHNIQUE: Ultrasound abdomen limited. Sonographic images of the right upper quadrant were obtained using grigsby-scale and color Doppler images. COMPARISON: None. FINDINGS: Liver: Normal in size. Moderate increased echogenicity. Normal echotexture. No definite surface nodularity. No definite liver lesion is seen. Gallbladder: The gallbladder is partially distended. Multiple large stones are seen which extend into the neck. No wall thickening. No pericholecystic fluid. Negative sonographic Tan sign as per the performing production operations manager. Common bile duct: 5 mm. Pancreas: Unremarkable. Right kidney: Normal in size. Normal echotexture and cortex. No suspicious masses, stones, or hydronephrosis. Vasculature: Proximal abdominal aorta: Borderline ectatic measuring 2.5 centimeters. IVC: Patent. Main portal vein: Patent. Ascites: None visualized. IMPRESSION: 1. Cholelithiasis without sonographic evidence of acute cholecystitis. 2. Hepatic steatosis. Dictated by Joaquim Chu MD @ 01/29/2025 8:55:16 AM (Electronic Signature) <Gisell Chavez MD - Last Filed: 01/29/25 10:30> Discharge Plan Discharge Clinical Impression: Elevation of levels of liver transaminase levels Cholelithiasis Qualifiers: Cholelithiasis location: gallbladder Cholecystitis presence: without cholecystitis Biliary obstruction: without biliary obstruction Qualified Code(s): K80.20 - Calculus of gallbladder without cholecystitis without obst ruction <Gisell Gary MD - Last Filed: 01/29/25 00:34> Patient Disposition: Home, Self-Care <Gisell Gary MD - Last Filed: 01/29/25 00:34> Condition: Stable <Gisell Gary MD - Last Filed: 01/29/25 00:34> Instructions: Gallstones (ED) <Gisell Gary MD - Last Filed: 01/29/25 00:34> Additional Instructions: Need to contact your primary care provider through the portal and leave a message today. Let them know that you were in the ER, have gallstones and the general surgeon needs to see you this next week. They need to work on the referral for the General surgery and the appointment in [facility]. If you develop recurrent pain, return to the ER. Try to stay on a bland low-fat diet, this may help. You will need liver enzymes rechecked this next week. If you are unable to successfully get through to the clinic at [facility], can call the [facility] and ask for an appointment with the General surgery team this week, phone number is [phone]. <Gisell Gary MD - Last Filed: 01/29/25 00:34> Activity Level: Activity as Tolerated <Gisell Gary MD - Last Filed: 01/29/25 00:34> Activity as Tolerated <Rashad Gutierrez MD - Last Filed: 01/31/25 16:21> Activity as Tolerated <Gisell Chavez MD - Last Filed: 01/29/25 10:30> Discharge Diet: Low Fat/Low Cholesterol <Gisell Gary MD - Last Filed: 01/29/25 00:34> Low Fat/Low Cholesterol <Rashad Gutierrez MD - Last Filed: 01/31/25 16:21> Low Fat/Low Cholesterol <Gisell Chavez MD - Last Filed: 01/29/25 10:30> Prescriptions: No Action No Known Home Medications <Gisell Gary MD - Last Filed: 01/29/25 00:34> Follow Up/Referrals: Provider,Not a Local [Non-Staff, Family Practice] <Gisell Gary MD - Last Filed: 01/29/25 00:34> Stand Alone Forms: [employer] Info Instructions <Gisell Gary MD - Last Filed: 01/29/25 00:34>
--- OUTSIDE RECORDS SUMMARY | 2025-01-28 21:10 | XMS_ITS ---
Author Name Interface, [id number] lity Address [address] [place], [place] [address] [place] [address] [facility] On[facility] Address [facility] [address] [address] Allergies and Adverse Reactions Plan Reason for Visit Encounters Medications Problems Vital Signs Notes Section
--- OUTSIDE RECORDS SUMMARY | 2025-01-28 21:10 | XMS_ITS ---
Author Name Interface, [id number] lity Address [address] [place], [place] [address] [address] [facility] Address [facility] [address] [address] Allergies and Adverse Reactions Plan Reason for Visit Encounters Medications Problems Notes Section
--- OUTSIDE RECORDS SUMMARY | 2025-01-28 21:11 | XMS_ITS ---
Author Name Interface, [id number] lity Address [address] [facility] [address] [place] [address] [facility] On[facility] Address [address] [facility] [address] [place] [address] Allergies and Adverse Reactions Medication/Group Name Reaction [...] g/dL 3.2 5.2 4.5 FINAL Jo Wells [place] [address] [id number] [phone] Phone: () - 06/19 CMP Alkal ine phosp hatas e U/L 46.0 116.0 100 FINAL Jo Wells [place] [address] [phone] Phone: () - 06/19 CMP ALT/S GPT U/L 7.0 40.0 32 FINAL Jo Wells [place] [address] [phone] Phone: () - 06/19 CMP AST/S GOT U/L 13.0 40.0 24 FINAL Jo Wells [place] [address] [address] [facility] [address] [phone] 0 Phone: () - 06/19 CMP BUN mg/dL 9.0 23.0 14 FINAL Jo Wells [place] [address] [phone] Phone: () - 06/19 CMP Calci um mg/dL 8.7 10.4 10.1 FINAL Jo Wells [place] [address] [address] [facility] [address] [phone] 0 Phone: () - 06/19 CMP Chlor jimmie mmol/L 96.0 114.0 103 FINAL Jo Kelley [facility] N [address] [phone] Phone: () - 06/19 CMP CO2 [...] the 96 hour stability window. [facility]AL [facility] [address] [phone] 0 Phone: () - 06/19 CMP Creat inine mg/dL 0.5 1.2 0.99 [place]AL [place] [address] [phone] Phone: () - 06/19 CMP GFR estim ate ml/min /1.73m ^2 58.6 Low GFR is calculate d using the CKD-EPI equation. [place]AL [place] [address] [phone] Phone: () - 06/19 CMP Gluco se mg/dL 73.0 126.0 92 FINAL [place] [address] [id number] 0 Phone: () - 06/19 CMP Potas sium mmol/L 3.5 5.1 4.3 FINAL [place] [address] [phone] 0 Phone: () - 06/19 CMP Sodiu m mmol/L 136.0 145.0 141 FINAL [facility] [address] [phone] 0 Phone: () - 06/19 CMP Bilir ubin, total mg/dL 0.3 1.2 0.3 FINAL [facility] [place], [address] [facility] [address] [place] [phone] 0 Phone: () - 06/19 CMP Total prote in g/dL 5.7 8.2 7.4 FINAL [facility] [place], [address] [facility] [address] [place] [phone] 0 Phone: () - 06/19 CBC w/ auto diff WBC K/uL 3.0 8.9 9.9 High FINAL [facility] [place], [address] [place] [phone] 0 Phone: () - 06/19 CBC w/ auto diff HGB g/dL 11.3 15.2 13.3 FINAL [facility] [place], [address] [place] [phone] 0 Phone: () - 06/19 CBC w/ auto diff PLT K/uL 113.0 364.0 339 FINAL [facility] - [place], [address] [place] [phone] 0 Phone: () - 06/19 CBC w/ auto diff Juan # (ANC) K/uL 1.6 6.6 5.6 FINAL [facility] - [place], [address] [place] [id number] 0 Phone: () - 06/19 CBC w/ auto diff Juan % % 43.0 74.0 56.7 FINAL [facility] [place], [address] [place] [id number] 0 Phone: () - 06/19 CBC w/ auto diff IG % % 0.0 0.5 0.3 FINAL [facility] [place], [address] [place] [phone] 0 Phone: () - 06/19 CBC w/ auto diff IG # K/uL 0.0 0.03 0.03 FINAL [facility] [place], [address] [place] [id number] 0 Phone: () - 06/19 CBC w/ auto diff LY % % 14.0 41.0 30.5 FINAL [facility] - [place], [address] [place] [address] [address] [place] [id number] 0 Phone: () - 06/19 CBC w/ auto diff MO % % 6.0 15.0 8.3 FINAL [facility] - [place], [address] [place] [address] [address] [place] [id number] 0 Phone: () - 06/19 CBC w/ auto diff EO % % 0.0 7.0 3.5 FINAL [facility] - [place], [address] [place] [address] [address] [place] [phone] 0 Phone: () - 06/19 CBC w/ auto diff BA % % 0.0 2.0 0.7 SUSANA [facility] - [place], [address] [place] [address] 200 [place] [id number] 0 Phone: () - 06/19 CBC w/ auto diff LY # K/uL 0.4 3.6 3.0 FINAL [facility] - [place], [address] [place] [address] [address] [place] [id number] 0 Phone: () - 06/19 CBC w/ auto diff MO # K/uL 0.2 1.3 0.8 SUSANA [facility] - [place], [address] [place] [address] [address] [place] [id number] 0 Phone: () - 06/19 CBC w/ auto diff EO # K/uL 0.0 0.6 0.4 SUSANA [facility] - [place], [address] [place] [address] [address] [place] [id number] 0 Phone: () - 06/19 CBC w/ auto diff BA # K/uL 0.0 0.2 0.1 SUSANA [facility] - [place], [address] [place] [address] [address] [place] [id number] 0 Phone: () - 06/19 CBC w/ auto diff NRBC % #/100W BC 0.0 0.2 0.0 FINAL Jo [facility] - [place], [address] [place] [address] [address] [place] [id number] 0 Phone: () - 06/19 CBC w/ auto diff RBC M/uL 3.9 5.1 4.55 FINAL Jo [facility] - [place], [address] [place] [address] [address] [place] [id number] 0 Phone: () - 06/19 CBC w/ auto diff HCT % 35.0 48.0 41.6 FINAL [facility] - [place], [address] [place] [address] [address] [place] [id number] 0 Phone: () - 06/19 CBC w/ auto diff MCV fL 80.0 104.0 91.4 FINAL Jo [facility] - [place], [address] [place] [address] [address] [place] [id number] 0 Phone: () - 06/19 CBC w/ auto diff MCH pg 26.0 35.0 29.2 FINAL [facility] - [place], [address] [place] [address] 200 [place] [id number] 0 Phone: () - 06/19 CBC w/ auto diff MCHC g/dL 30.0 35.0 32.0 FINAL [facility] - [place], [address] [place] [address] [address] [place] [phone] 0 Phone: () - 06/19 CBC w/ auto diff MPV fL 9.5 13.4 10.3 FINAL [facility] - [place], [address] [place] [address] [address] [place] [id number] 0 Phone: () - 06/19 CBC w/ auto diff RDW % 11.4 16.1 13.30 FINAL Jo [facility] - [place], [address] [place] [phone] 0 Phone: () - 06/24 Magne sium, mg/dL mg/dL 1.5 2.3 2.0 FINAL [facility], [address] [facility] [phone] 0 Phone: () - 06/24 iSTAT creat inine panel Creat inine , iSTAT mg/dl 0.6 1.3 0.9 FINAL Xiomara [facility] - [place], [address] [place] [address] [address] [place] [id number] 0 Phone: () - 06/24 iSTAT creat inine panel GFR estim ate ml/min /1.73m ^2 65.7 GFR is calculate d using the CKD-EPI equation. FINAL Xiomara [facility] - [place], 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 Therefore , the biopsy isinterpr [...] is inked green and entirely submitted in [facility] te.Mayank Orta 09/11/2021 6:21 PMMICROS OPI DESCRIPTI ONThe final diagnosis is based on microscop ic examinati on of appropria te sectionso f all specimens .ADDITION AL INFORMATI ONInterpr eted at [facility] - [address], [facility] [place] [address]Hwxm Performed by:[facility] [facility] [place], [place] [address]Lfmz e [phone] FINAL Dorothea Wade ast 10/07 Surgi anil patho logy panel Biops y summa ry of findi ngs SEE RESULTS BELOW CASE REPORTPat hology Report Case: [id number] ing Provider: Dorothea Engel, Collected :10/08/19 22 0920MDOrd ering Location: [facility] Received: 2 1441Patho [...] seen in the prior biopsy on 09/11/2021 ([id number] ).Case seen in consultat ion with Dr. [...] different iatedvulv ar intraepit helial neoplasia (d-SHAMA) ([id number] ; 09/11/21). On 09/27/2021 patient called to [...] examined. SHAMA [place] INFORMATI ONInterpr eted at [facility] - [address], [place], [place] [address] Performed by:[facility] - [place], [place] [address]Zvma e [phone] FINAL Dorothea Wade ast 02/13 [facility] [place] See medical staff credentialing coordinator d 03/26 [facility] other lab See medical staff credentialing coordinator d 05/01 [facility] other lab See medical staff credentialing coordinator d 05/09 [facility] other lab See medical staff credentialing coordinator d Medications Date Name Route Dose Frequency Instructions Start Date End Date Status Fill Status Indication 03/03 Coenzym e Q10 Oral active 03/03 Flaxsee d Oil active 03/03 [place] 3-DHA-E PA-Fish Oil Oral Liquid 1,600 mg-500 [...]
--- OUTSIDE RECORDS SUMMARY | 2025-01-28 21:11 | XMS_ITS ---
Author Name Interface, [id number] lity Address [address] [place] [address] [facility] On[facility] Address [facility]0 [address] [address] Allergies and Adverse Reactions Plan Reason for Visit Encounters Diagnostic Results Medications Problems Vital Signs
--- OUTSIDE RECORDS SUMMARY | 2025-01-28 21:11 | XMS_ITS ---
Author Name Interface, [id number] lity Address [address] [place] [address] [facility] On[facility] Address [facility]0 [address] [address] Allergies and Adverse Reactions Plan Reason for Visit Encounters Diagnostic Results Medications Problems Vital Signs
--- OUTSIDE RECORDS SUMMARY | 2025-01-28 21:11 | XMS_ITS ---
Author Name Interface, [id number] lity Address [address] [facility] [address] [place] [address] [facility] Address [address] [facility] [address] [place] [address] Allergies and Adverse Reactions Medication/Group Name Reaction [...] 30 MIN 01/01/2022 APPOINTMENT OV 30 MIN 01/23/2022 LABORDER PET/CT scan, sku ll base/mid thigh Reason for Visit OV 30 MIN Encounters Date Name 01/01/2022 Lymphedema of lower extremity (disorder) 01/01/2022 Vulvar cancer Diagnostic Results Date Type Test Units Lower Limit Upper Limit Result Flag Comments Status Ordered By Specimen Source Lab Address 02/13 [facility] [place] See attache vega 03/26 [facility] [place] See attache vega 05/01 [facility] [place] lab See attache vega 05/09 [facility] [place] lab See international account representative d Medications Date Name Route Dose Frequency Instructions Start Date End Date Status Fill Status Indication 03/03 Coenzym e Q10 Oral active 03/03 Flaxsee d Oil active 03/03 [place] 3-DHA-E PA-Fish Oil Oral Liquid 1,600 mg-500 [...] (disorder) Active Vital Signs Date Type Value 01/01/2022 Body Temperature 98.20 01/01/2022 Heart Beat [...] Beat 83.00 01/31/2022 Body Temperature 98.50 03/04/2022 Intravascular Systolic 162 03/04/2022 Intravascular Diastolic 92 03/04/2022 Oxygen Saturation 99.00 03/04/2022 Respiratory Rate 16.00 03/04/2022 Heart Beat 70.00 03/04/2022 Pain Scale 0.00 03/04/2022 BSA 2.13 03/04/2022 BMI 35.40 03/04/2022 Height 67.00 03/04/2022 Weight 226.00 03/04/2022 Body Temperature 98.40 05/27/2022 BSA 2.12 05/27/2022 BMI 34.93 05/27/2022 Height 67.00 05/27/2022 Weight 223.00 05/27/2022 Pain Scale 0.00 05/27/2022 Intravascular Systolic 130 05/27/2022 Intravascular Diastolic 90 05/27/2022 Oxygen Saturation 99.00 05/27/2022 Respiratory Rate 16.00 05/27/2022 Body Temperature 98.60 05/27/2022 Heart Beat 77.00 08/26/2022 BSA 2.15 08/26/2022 BMI 36.02 08/26/2022 Height 67.00 08/26/2022 Weight 230.00 08/26/2022 Body Temperature 98.30 08/26/2022 Intravascular Systolic 160 08/26/2022 Intravascular Diastolic 90 08/26/2022 Oxygen Saturation 99.00 08/26/2022 Respiratory Rate 16.00 08/26/2022 Heart Beat 76.00 08/26/2022 Pain Scale 0.00 12/01/2022 Body Temperature 97.90 12/01/2022 Heart Beat 74.00 12/01/2022 Respiratory Rate 16.00 12/01/2022 Oxygen Saturation 99.00 12/01/2022 Intravascular Systolic 125 12/01/2022 Intravascular Diastolic 80 12/01/2022 Pain Scale 0.00 12/01/2022 Weight 228.60 12/01/2022 Height 67.00 12/01/2022 BMI 35.80 12/01/2022 BSA 2.14 03/04/2023 Pain Scale 0.00 03/04/2023 Weight 230.30 03/04/2023 Height 67.00 03/04/2023 BMI 36.07 03/04/2023 BSA 2.15 03/04/2023 Oxygen Saturation 99.00 03/04/2023 Respiratory Rate 16.00 03/04/2023 Heart Beat 64.00 03/04/2023 Body Temperature 97.50 03/04/2023 Intravascular Systolic 145 03/04/2023 Intravascular Diastolic 99 06/10/2023 Oxygen Saturation 99.00 06/10/2023 Respiratory Rate 16.00 06/10/2023 Heart Beat 78.00 06/10/2023 Body Temperature 98.30 06/10/2023 Intravascular Systolic 150 06/10/2023 Intravascular Diastolic 90 06/10/2023 BSA 2.15 06/10/2023 BMI 36.05 06/10/2023 Height 67.00 06/10/2023 Weight 230.20 06/10/2023 Pain Scale 0.00 08/26/2023 BMI 35.83 08/26/2023 Height 67.00 08/26/2023 Weight 228.80 08/26/2023 Pain Scale 0.00 08/26/2023 BSA 2.14 08/26/2023 Heart Beat 74.00 08/26/2023 Respiratory Rate 16.00 08/26/2023 Oxygen Saturation 99.00 08/26/2023 Intravascular Systolic 135 08/26/2023 Intravascular Diastolic 98 08/26/2023 Body Temperature 98.00 12/23/2023 BMI 35.62 12/23/2023 Height 67.00 12/23/2023 Weight 227.40 12/23/2023 Pain Scale 0.00 12/23/2023 Intravascular Systolic 136 12/23/2023 Intravascular Diastolic 90 12/23/2023 Oxygen Saturation 99.00 12/23/2023 Respiratory Rate 16.00 12/23/2023 Heart Beat 74.00 12/23/2023 Body Temperature 97.90 12/23/2023 BSA 2.14 06/29/2024 Body Temperature 98.00 06/29/2024 Heart Beat 77.00 06/29/2024 Respiratory Rate 16.00 06/29/2024 Oxygen Saturation 98.00 06/29/2024 BSA 2.12 06/29/2024 Pain Scale 0.00 06/29/2024 Weight 224.10 06/29/2024 Height 67.00 06/29/2024 BMI 35.10 06/29/2024 Intravascular Systolic 156 06/29/2024 Intravascular Diastolic 88 01/04/2025 BMI 34.75 01/04/2025 Height 67.00 01/04/2025 Weight 221.90 01/04/2025 Pain Scale 0.00 01/04/2025 Intravascular Systolic 156 01/04/2025 Intravascular Diastolic 88 01/04/2025 Oxygen Saturation 98.00 01/04/2025 Respiratory Rate 16.00 01/04/2025 Heart Beat 68.00 01/04/2025 Body Temperature 97.90 01/04/2025 BSA 2.11
--- OUTSIDE RECORDS SUMMARY | 2025-01-28 21:11 | XMS_ITS ---
Author Name Interface, [id number] lity Address [address] [facility] [address] [place] [address] [facility] Oncology Address [address] [facility] [address] [place] [address] Allergies and Adverse Reactions Medication/Group Name Reaction [...] 30 MIN 06/19/2021 APPOINTMENT LAB 15 MIN 05/29/2021 APPOINTMENT OV 30 MIN 05/10/2021 APPOINTMENT POST OP 30 MIN 06/19/2021 LABORDER CBC w/ auto diff [...] Visit OV 30 MIN Encounters Date Name 05/10/2021 Differentiated SHAMA ( vulvar intraepithelial neoplasia) 05/10/2021 Lichen sclerosus (di sorder) 05/10/2021 Lymphedema of lower extremity (disorder) 05/10/2021 Overactive bladder 05/10/2021 Perianal abscess (di sorder) 05/10/2021 Skin abscess 05/10/2021 Urge incontinence of urine 05/10/2021 Vulvar cancer 05/10/2021 Vulvar lesion Immunizations Date Name Route Dose Instructions Refusal Reason Stat us Flu vaccine - Adult Patient declined/rejected Not Administered Diagnostic Results Date Type Test Units Lower Limit Upper Limit Result Flag Comments Status Ordered By Specimen Source Lab Address 06/06 [facility] other lab See mc kay stitcher d 06/19 CMP Album in g/dL 3.2 5.2 4.5 FINAL Jo Wells [facility], [address] [facility] [address] [phone] Phone: () - 06/19 CMP Alkal ine phosp hatas e U/L 46.0 116.0 100 FINAL Jo Wells [facility], [address] [facility] [address] [phone] Phone: () - 06/19 CMP ALT/S GPT U/L 7.0 40.0 32 FINAL Jo Wells [facility], [address] [facility] [phone] Phone: () - 06/19 CMP AST/S GOT U/L 13.0 40.0 24 [facility] [address] [phone] Phone: () - 06/19 CMP BUN mg/dL 9.0 23.0 14 FINAL Jo Wells [facility], [address] [place] [phone] Phone: () - 06/19 CMP Calci um mg/dL 8.7 10.4 10.1 FINAL Jo butler [facility], [address] [phone] Phone: () - 06/19 CMP Chlor jimmie mmol/L 96.0 114.0 103 FINAL Jo Wells [place] [address] [address] [facility] [address] [facility] [phone] Phone: () - 06/19 CMP CO2 [...] the 96 hour stability window. FINAL [place] [address] [phone] Phone: () - 06/19 CMP Creat inine mg/dL 0.5 1.2 0.99 FINAL Jo Wells [place] [address] [phone] Phone: () - 06/19 CMP GFR estim ate ml/min /1.73m ^2 58.6 Low GFR is calculate d using the CKD-EPI equation. [place] [address] [phone] Phone: () - 06/19 CMP Gluco se mg/dL 73.0 126.0 92 SUSANA Wells [facility] [address] [phone] 0 Phone: () - 06/19 CMP Potas sium mmol/L 3.5 5.1 4.3 [facility] [address] [phone] Phone: () - 06/19 CMP Sodiu m mmol/L 136.0 145.0 141 FINAL Jo butler On[facility], [address] [facility] [address] [facility] [phone] Phone: () - 06/19 CMP Bilir ubin, total mg/dL 0.3 1.2 0.3 FINAL Jo butler [facility], [address] [place] [phone] 0 Phone: () - 06/19 CMP Total prote in g/dL 5.7 8.2 7.4 FINAL Jo butler On[facility], [address] [place] [phone] 0 Phone: () - 06/19 CBC w/ auto diff WBC K/uL 3.0 8.9 9.9 High FINAL Jo butler Oncology - [place] [facility], [address] [place] [address] [address] [place] [phone] 0 Phone: () - 06/19 CBC w/ auto diff HGB g/dL 11.3 15.2 13.3 FINAL Jo butler Oncology - [place], [address] [place] [address] [address] [place] [phone] 0 Phone: () - 06/19 CBC w/ auto diff PLT K/uL 113.0 364.0 339 FINAL Jo butler Oncology - [place], [address] [place] [address] [address] [place] [phone] 0 Phone: () - 06/19 CBC w/ auto diff Juan # (ANC) K/uL 1.6 6.6 5.6 FINAL Jo butler Oncology - [place], [address] [place] [address] [address] [place] [phone] 0 Phone: () - 06/19 CBC w/ auto diff Juan % % 43.0 74.0 56.7 FINAL Jo butler Oncology - [place], [address] [place] [address] [address] [place] [phone] 0 Phone: () - 06/19 CBC w/ auto diff IG % % 0.0 0.5 0.3 FINAL Jo butler Oncology - [place], [address] [place] [address] [address] [place] [phone] 0 Phone: () - 06/19 CBC w/ auto diff IG # K/uL 0.0 0.03 0.03 FINAL Jo butler [facility] - [place], [address] [place] [address] [address] [place] [phone] 0 Phone: () - 06/19 CBC w/ auto diff LY % % 14.0 41.0 30.5 FINAL Jo butler [facility] - [place], [address] [place] [address] [address] [place] [phone] 0 Phone: () - 06/19 CBC w/ auto diff MO % % 6.0 15.0 8.3 FINAL Jo butler Oncology - [place], [address] [place] [address] [address] [place] [phone] 0 Phone: () - 06/19 CBC w/ auto diff EO % % 0.0 7.0 3.5 FINAL Jo butler Oncology - [place], [address] [place] [address] [address] [place] [phone] 0 Phone: () - 06/19 CBC w/ auto diff BA % % 0.0 2.0 0.7 SUSANA butler Oncology - [place], [address] [place] [address] [address] [place] [phone] 0 Phone: () - 06/19 CBC w/ auto diff LY # K/uL 0.4 3.6 3.0 SUSANA butler Oncology - [place], [address] [place] [address] [address] [place] [phone] 0 Phone: () - 06/19 CBC w/ auto diff MO # K/uL 0.2 1.3 0.8 SUSNAA butler Oncology - [place], [address] [place] [address] [address] [place] [phone] 0 Phone: () - 06/19 CBC w/ auto diff EO # K/uL 0.0 0.6 0.4 SUSANA butler Oncology - [place], [address] [place] [address] [address] [place] [phone] 0 Phone: () - 06/19 CBC w/ auto diff BA # K/uL 0.0 0.2 0.1 SUSANA butler Oncology - [place], [address] [place] [address] [address] [place] [phone] 0 Phone: () - 06/19 CBC w/ auto diff NRBC % #/100W BC 0.0 0.2 0.0 FINAL Jo butler [facility] - [place], [address] [place] [address] [address] [place] [phone] 0 Phone: () - 06/19 CBC w/ auto diff RBC M/uL 3.9 5.1 4.55 FINAL Jo butler Oncology - [place], [address] [place] [address] [address] [place] [phone] 0 Phone: () - 06/19 CBC w/ auto diff HCT % 35.0 48.0 41.6 FINAL Jo butler Oncology - [place], [address] [place] [phone] 0 Phone: () - 06/19 CBC w/ auto diff MCV fL 80.0 104.0 91.4 FINAL Jo butler Oncology - [place], [address] [place] [address] [address] [place] [phone] 0 Phone: () - 06/19 CBC w/ auto diff MCH pg 26.0 35.0 29.2 FINAL Jo butler Oncology - [place], [address] [place] [address] [address] [place] [phone] 0 Phone: () - 06/19 CBC w/ auto diff MCHC g/dL 30.0 35.0 32.0 FINAL Jo butler Oncology - [place], [address] [place] [address] [address] [place] [phone] 0 Phone: () - 06/19 CBC w/ auto diff MPV fL 9.5 13.4 10.3 FINAL Jo butler Oncology - [place], [address] [place] [address] [address] [place] [phone] 0 Phone: () - 06/19 CBC w/ auto diff RDW % 11.4 16.1 13.30 FINAL Jo butler Oncology - [place], [address] [place] [address] [address] [place] [phone] 0 Phone: () - 06/24 Magne sium, mg/dL mg/dL 1.5 2.3 2.0 FINAL Xiomara butler Oncology - [place], [address] [facility] [phone] Phone: () - 06/24 iSTAT creat inine panel Creat inine , iSTAT mg/dl 0.6 1.3 0.9 FINAL Xiomara butler Oncology - [facility], [address] [place] [address] [address] [facility] [place] [phone] 0 Phone: () - 06/24 iSTAT creat inine panel GFR estim ate ml/min /1.73m ^2 65.7 GFR is calculate d using the CKD-EPI equation. FINAL Xiomara butler [facility], [address] [place] [address] [address] [facility] [place] [phone] 0 Phone: () - 09/11 Surgi anil patho logy panel Biops y summa ry of findi ngs (Added) SEE RESULTS BELOW CASE REPORTPat [facility] Report Case: [id number] ing Provider: Dorothea Engel, Collected :09/12/19 22 0900MDOrd ering Location: [facility] Received: 2 1406Patho logist: Malissa [...] the patient's prior invasive squamous cell carcinoma ([id number] , B14). Therefore , the biopsy isinterpr eted as most consisten t with different iated SHAMA.Case seen in consultat ion with Drs. Peng and Rusty. Case discussed with Dr.Prende yorkast.CLI NICAL INFORMATI ONHistory of stage IIIa well [...] is inked green and entirely submitted in [facility] te.Mayank Orta 09/11/2021 6:21 PMMICROSC OPIC DESCRIPTI ONThe final diagnosis is based on microscop ic examinati on of appropria te sectionso f all specimens .ADDITION AL INFORMATI ONInterpr eted at [facility], [facility] - [address], [facility] [place] [place] [address]Aqmt Performed by:[facility] - [place], [place] [address]Cwyq e [phone] FINAL Dorothea Wade ast 10/07 Surgi anil patho logy panel Biops y summa ry of findi ngs SEE RESULTS BELOW CASE REPORTPat hology Report Case: [id number] ing Provider: Dorothea Engel, Collected :10/08/19 22 0920MDOrd ering Location: [facility] Received: 2 1441Patho logist: Jessica Corado MDSpecime n: VulvaFINA L DIAGNOSIS A) VULVA, 6 O'CLOCK NEAR INTROITUS , BIOPSY:1. Lichen sclerosus with atypia, see comment2. Negative for malignanc yElectron ically signed by Jessica Corado MD on 10/08/2021 at 5:03 PMCOMMENT The current biopsy shows lichen sclerosus with focal basilar atypia, whichrais es concern for but is NOT diagnosti c?of different iated type vulvarint raepithel ial neoplasia . The changes in the current biopsy are less pronounce dthan that seen in the prior biopsy on 09/11/2021 ([id number]).Case seen in consultat ion with Dr. Peng.CLIN [...] different iatedvulv ar intraepit helial neoplasia (d-SHAMA) ([id number]; 09/11/21). On 09/27/2021 patient called to report [...] blue and entirely submitted in one cassette. CRATER 10/07/2021 MICROSCOP IC DESCRIPTI ONThe final diagnosis is based on microscop ic examinati on of appropria te sectionso f all specimens . A p53 immunosta in was performed on part A to assist inevaluat ion. The p53 immunosta in demonstra eric a wild-type pattern of expressio n.Deeper sections are examined. ADDITIONA L INFORMATI ONInterpr eted at [facility], Central [facility]ator [facility] - [address], [facility] [place], [place] [address]Enug Performed by:[facility] - [facility] [place], [place] [address]Rirm e : FINAL Dorothea Wade ast 02/13 [facility] other lab See mc kay stitcher d 03/26 [facility] other lab See mc kay stitcher d [facility] See [facility] kay stitcher d 05/09 [facility] other lab See mc kay stitcher d Medications Date Name Route Dose Frequency Instructions Start Date End Date Status Fill Status Indication 03/03 Coenzym e Q10 Oral active 03/03 Flaxsee d Oil active 03/03 [place] 3-DHA-E PA-Fish Oil Oral Liquid 1,600 mg-500 [...] (disorder) Active Vital Signs Date Type Value 05/10/2021 Intravascular Systolic 132 05/10/2021 Intravascular Diastolic 80 05/10/2021 Body Temperature 97.60 05/10/2021 Heart Beat 76.00 05/10/2021 Respiratory Rate 18.00 05/10/2021 Oxygen Saturation 99.00 05/10/2021 Height 67.00 05/10/2021 Weight 238.00 05/10/2021 Pain Scale 2.00 05/10/2021 BMI 37.28 05/10/2021 BSA 2.18 05/29/2021 BSA 2.16 05/29/2021 BMI 36.59 05/29/2021 Height 67.00 05/29/2021 Weight 233.60 05/29/2021 Pain Scale 1.00 05/29/2021 Intravascular Systolic 142 05/29/2021 Intravascular Diastolic 70 05/29/2021 Oxygen Saturation 98.00 05/29/2021 Respiratory Rate 18.00 05/29/2021 Body Temperature 98.40 05/29/2021 Heart Beat 73.00 06/19/2021 Oxygen Saturation 97.00 06/19/2021 Respiratory Rate 18.00 06/19/2021 Heart Beat 124.00 06/19/2021 Body Temperature 97.90 06/19/2021 Pain Scale 0.00 06/19/2021 BSA 2.17 06/19/2021 BMI 37.06 06/19/2021 Height 67.00 06/19/2021 Weight 236.60 06/19/2021 Intravascular Systolic 132 06/19/2021 Intravascular Diastolic 84 06/24/2021 Intravascular Systolic 140 06/24/2021 Intravascular Diastolic 80 06/24/2021 Oxygen Saturation 97.00 06/24/2021 Heart Beat 74.00 06/24/2021 Body Temperature 98.00 06/24/2021 Pain Scale 0.00 06/24/2021 Weight 235.00 06/24/2021 Height 67.00 06/24/2021 Respiratory Rate 14.00 06/24/2021 BSA 2.17 06/24/2021 BMI 36.81 09/11/2021 Pain Scale 0.00 09/11/2021 Intravascular Systolic 192 09/11/2021 Intravascular Diastolic 98 09/11/2021 Body Temperature 98.20 09/11/2021 Height 67.00 09/11/2021 BMI 35.71 09/11/2021 BSA 2.14 09/11/2021 Heart Beat 85.00 09/11/2021 Respiratory Rate 14.00 09/11/2021 Oxygen Saturation 96.00 09/11/2021 Weight 228.00 10/07/2021 Pain Scale 0.00 10/07/2021 Weight 226.00 10/07/2021 Height 67.00 10/07/2021 BMI 35.40 10/07/2021 Body Temperature 98.70 10/07/2021 Respiratory Rate 14.00 10/07/2021 Intravascular Systolic 144 10/07/2021 Intravascular Diastolic 80 10/07/2021 Oxygen Saturation 97.00 10/07/2021 Heart Beat 78.00 10/07/2021 BSA 2.13 10/30/2021 Respiratory Rate 14.00 10/30/2021 Pain Scale 0.00 10/30/2021 Weight 227.00 10/30/2021 Height 67.00 10/30/2021 BMI 35.55 10/30/2021 BSA 2.13 10/30/2021 Body Temperature 98.10 10/30/2021 Heart Beat 85.00 10/30/2021 Oxygen Saturation 98.00 10/30/2021 Intravascular Systolic 150 10/30/2021 Intravascular Diastolic 80 11/14/2021 Body Temperature 98.20 11/14/2021 Heart Beat 78.00 11/14/2021 Respiratory Rate 16.00 11/14/2021 Oxygen Saturation 98.00 11/14/2021 BSA 2.13 11/14/2021 Pain Scale 2.00 11/14/2021 Weight 225.80 11/14/2021 Height 67.00 11/14/2021 BMI 35.36 11/14/2021 Intravascular Systolic 140 11/14/2021 Intravascular Diastolic 80 11/28/2021 Body Temperature 98.60 11/28/2021 Heart Beat 68.00 11/28/2021 Respiratory Rate 16.00 11/28/2021 Oxygen Saturation 98.00 11/28/2021 Intravascular Systolic 140 11/28/2021 Intravascular Diastolic 82 11/28/2021 Pain Scale 0.00 11/28/2021 Weight 228.00 11/28/2021 Height 67.00 11/28/2021 BMI 35.71 11/28/2021 BSA 2.14 12/25/2021 Pain Scale 0.00 12/25/2021 Intravascular Systolic 152 12/25/2021 Intravascular Diastolic 90 12/25/2021 Oxygen Saturation 99.00 12/25/2021 Respiratory Rate 16.00 12/25/2021 Heart Beat 76.00 12/25/2021 Body Temperature 98.10 12/25/2021 BSA 2.13 12/25/2021 BMI 35.55 12/25/2021 Weight 227.00 12/25/2021 Height 67.00 01/01/2022 BSA 2.13 01/01/2022 Height 67.00 01/01/2022 Weight 225.00 01/01/2022 Pain Scale 0.00 01/01/2022 BMI 35.24 01/01/2022 Oxygen Saturation 99.00 01/01/2022 Respiratory Rate 16.00 01/01/2022 Heart Beat 72.00 01/01/2022 Body Temperature 98.20 01/01/2022 Intravascular Systolic 162 01/01/2022 Intravascular Diastolic 90 01/31/2022 BSA 2.13 01/31/2022 BMI 35.24 01/31/2022 Height 67.00 01/31/2022 Weight 225.00 01/31/2022 Pain Scale 0.00 01/31/2022 Intravascular Systolic 168 01/31/2022 Intravascular Diastolic 100 01/31/2022 Oxygen Saturation 99.00 01/31/2022 Respiratory Rate 16.00 01/31/2022 Heart Beat 83.00 01/31/2022 Body Temperature 98.50 03/04/2022 Weight 226.00 03/04/2022 Pain Scale 0.00 03/04/2022 Intravascular Systolic 162 03/04/2022 Intravascular Diastolic 92 03/04/2022 Oxygen Saturation 99.00 03/04/2022 Height 67.00 03/04/2022 Heart Beat 70.00 03/04/2022 Body Temperature 98.40 03/04/2022 BSA 2.13 03/04/2022 BMI 35.40 03/04/2022 Respiratory Rate 16.00 05/27/2022 BSA 2.12 05/27/2022 Body Temperature 98.60 [...]
--- OUTSIDE RECORDS SUMMARY | 2025-01-28 21:11 | XMS_ITS | CCD ---
Author Name Interface, [id number] lity Address [address] [facility] [address] [place] [address] [facility] Address [facility] [address] [place] [address] Care Team Providers Care Risk Reduction Counselor Name Role Phone Anabel EASLEY, Eugenie Corbett Unavailable Un available Allergies and Adverse Reactions Care Plan Reason for Visit Encounters Functional Status Diagnostic Results Medications Problems Procedures Social History Vital Signs Notes Section
--- OUTSIDE RECORDS SUMMARY | 2025-01-28 21:11 | XMS_ITS ---
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 History of Present Illness (Health Policy Nurse Oncology): Adam Gonzalez is a 79 year [...] * 05/2021: Met with radiation oncologist in [place] to plan postoperative radiation to the left groin. ??Medical oncology consult in [place] occurred, discussing weekly cisplatin.? 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 Genetic Testing (Health Policy Nurse Oncology): N/A ?? Interval History (Health Policy Nurse Oncology) No interval changes.??Doing OK, no concerns. 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 Non-smoker. Rare alcohol [...] performance without restriction. (Date: 10/07/2021) Physical Exam (Health Policy Nurse Oncology): General: Well appearing, no acute distress [...] 03/26/2022 02/13/2022 10/08/1909/11/2021 Chemistries ? Imaging: PET/CT??01/29/2022 ([email or web address] [place]):??Decreased but persistent FDG uptake involving the vulvar [...] inguinofemoral LND. Previously seen for PT at [place] ; ) * Overactive bladder * Perianal abscess (disorder) * Skin abscess * Urge incontinence of urine * Vulvar lesion Assessment & Plan (Health Policy Nurse Oncology): Adam Gonzalez is a 79 year [...] node biopsy * Working with??Lymphedema specialist at [facility] * Encouraged compression and elevation * [...] Eugenie Little MD ?? Gynecologic Oncology - [place] [facility]?? Pain Care Management: Pain Scale: 0 [...]
--- OUTSIDE RECORDS SUMMARY | 2025-01-28 21:11 | XMS_ITS ---
Author Name Interface, [id number] lity Address [address] [facility] [address] [place] [address] [facility] Oncology Address [address] [facility] [address] [place] [address] Allergies and Adverse Reactions Medication/Group Name Reaction [...] Ordered By Specimen Source Lab Address 02/13 [facility] other lab See attache vega 03/26 [facility] other lab See attache vega 05/01 [facility] other lab See attache vega 05/09 [facility] other lab See senior product consultant d Medications Date Name Route Dose Frequency Instructions Start Date End Date Status Fill Status Indication 03/03 Coenzym e Q10 Oral active 03/03 Flaxsee d Oil active 03/03 [place] 3-DHA-E PA-Fish Oil Oral Liquid 1,600 mg-500 [...]
--- OUTSIDE RECORDS SUMMARY | 2025-01-28 21:11 | XMS_ITS ---
Author Name Interface, [id number] lity Address [address] [place] [address] [address] [facility] Oncology Address [facility] [address] Allergies and Adverse Reactions Plan Reason for Visit Encounters Diagnostic Results Medications Problems Vital Signs
--- OUTSIDE RECORDS SUMMARY | 2025-01-28 21:12 | XMS_ITS ---
Author Name Interface, [id number] lity Address [address] [place] [address] [facility] Oncology Address [address] [place] [address] Allergies and Adverse Reactions Medication/Group Name Reaction [...] 10/07/2021 APPOINTMENT OUTSIDE TEST 5 M IN 10/07/2021 LABORDER Surgical patholo gy panel 01/23/2022 LABORDER PET/CT scan, sku ll base/mid thigh Reason for Visit OV 30 MIN Encounters Date Name 10/07/2021 Differentiated SHAMA ( vulvar intraepithelial neoplasia) 10/07/2021 Lymphedema of lower extremity (disorder) 10/07/2021 Perianal abscess (di sorder) 10/07/2021 Skin abscess 10/07/2021 Vulvar cancer Diagnostic Results Date Type Test Units Lower Limit Upper Limit Result Flag Comments Status Ordered By Specimen Source Lab Address 10/07 Surgi anil patho logy panel Biops y summa ry of findi ngs SEE RESULTS BELOW CASE REPORTPat [facility] Report Case: [id number] ing Provider: Dorothea Engel, Collected :10/08/19 22 0920MDOrd ering Location: [facility] Received: 2 1441Patho logist: Jessica Corado MDSpecime n: VulvaFINA L DIAGNOSIS A) VULVA, 6 O'CLOCK NEAR INTROITUS , BIOPSY:1. Lichen sclerosus with atypia, see comment2. Negative for malignanc yElectron jamie signed by Jessica Corado MD on 10/08/2021 at 5:03 PMCOMMENT The current biopsy shows lichen sclerosus with focal basilar atypia, whichrais es concern for but is NOT diagnosti c?of different iated type vulvarint raepithel ial neoplasia . The changes in the current biopsy are less pronounce dthan that seen in the prior biopsy on 09/11/2021 ([id number]).Case seen in consultat ion with Dr. [...] different iatedvulv ar intraepit helial neoplasia (d-SHAMA) ([id number] 21; 09/11/21). On 09/27/2021 patient called to [...] examined. ADDITIONA L INFORMATI ONInterpr eted at [facility] - [address], [facility], [place] [address]Wdzt Performed by:[facility] - [facility] [place], [place] [address]Flum e : FINAL Dorothea Wade ast 02/13 [facility] other lab See finisher merchant products d 03/26 [facility] other lab See finisher merchant products d 05/01 [facility] other lab See finisher merchant products d 05/09 [facility] other lab See finisher merchant products d Medications Date Name Route Dose Frequency Instructions Start Date End Date Status Fill Status Indication 03/03 Coenzym e Q10 Oral active 03/03 Flaxsee d Oil active 03/03 [place] 3-DHA-E PA-Fish Oil Oral Liquid 1,600 mg-500 [...] (disorder) Active Vital Signs Date Type Value 10/07/2021 BSA 2.13 10/07/2021 Body Temperature 98.70 10/07/2021 Heart Beat 78.00 10/07/2021 Oxygen Saturation 97.00 10/07/2021 Intravascular Systolic 144 10/07/2021 Intravascular Diastolic 80 10/07/2021 Respiratory Rate 14.00 10/07/2021 Pain Scale 0.00 10/07/2021 Weight 226.00 10/07/2021 Height 67.00 10/07/2021 BMI 35.40 10/30/2021 Intravascular Systolic 150 10/30/2021 Intravascular Diastolic 80 10/30/2021 Oxygen Saturation 98.00 10/30/2021 Heart Beat 85.00 10/30/2021 Body Temperature 98.10 10/30/2021 Respiratory Rate 14.00 10/30/2021 BMI 35.55 10/30/2021 Height 67.00 10/30/2021 Weight 227.00 10/30/2021 Pain Scale 0.00 10/30/2021 BSA 2.13 11/14/2021 BMI 35.36 11/14/2021 Height 67.00 11/14/2021 Weight 225.80 11/14/2021 Pain Scale 2.00 11/14/2021 Intravascular Systolic 140 11/14/2021 Intravascular Diastolic 80 11/14/2021 Oxygen Saturation 98.00 11/14/2021 Respiratory Rate 16.00 11/14/2021 Heart Beat 78.00 11/14/2021 Body Temperature 98.20 11/14/2021 BSA 2.13 11/28/2021 Body Temperature 98.60 11/28/2021 Heart Beat [...] Diastolic 90 12/25/2021 Pain Scale 0.00 01/01/2022 BSA 2.13 01/01/2022 Body Temperature 98.20 01/01/2022 Heart Beat 72.00 01/01/2022 Respiratory Rate 16.00 01/01/2022 BMI 35.24 01/01/2022 Intravascular Systolic 162 01/01/2022 Intravascular Diastolic 90 01/01/2022 Pain Scale 0.00 01/01/2022 Weight 225.00 01/01/2022 Height 67.00 01/01/2022 Oxygen Saturation 99.00 01/31/2022 Body Temperature 98.50 01/31/2022 Heart Beat 83.00 01/31/2022 Respiratory Rate 16.00 01/31/2022 Oxygen Saturation 99.00 01/31/2022 Intravascular Systolic 168 01/31/2022 Intravascular Diastolic 100 01/31/2022 Pain Scale 0.00 01/31/2022 Weight 225.00 01/31/2022 Height 67.00 01/31/2022 BMI 35.24 01/31/2022 BSA 2.13 03/04/2022 Weight 226.00 03/04/2022 Height 67.00 03/04/2022 BMI 35.40 03/04/2022 BSA 2.13 03/04/2022 Pain Scale 0.00 03/04/2022 Heart Beat 70.00 03/04/2022 Respiratory Rate 16.00 03/04/2022 Oxygen Saturation 99.00 03/04/2022 Intravascular Systolic 162 03/04/2022 Intravascular Diastolic 92 03/04/2022 Body Temperature 98.40 05/27/2022 BSA 2.12 05/27/2022 Body Temperature 98.60 [...]
--- OUTSIDE RECORDS SUMMARY | 2025-01-28 21:12 | XMS_ITS | CCD ---
Author Name Interface, [id number] lity Address [address] [facility] [address] [place] [address] [facility] Address [facility] [address] [place] [address] Care Team Providers Care Product Architect Name Role Phone Anabel EASLEY, Eugenie Corbett Unavailable Un available Allergies and Adverse Reactions Care Plan Reason for Visit Encounters Functional Status Diagnostic Results Medications Problems Procedures Social History Vital Signs Notes Section
--- OUTSIDE RECORDS SUMMARY | 2025-01-28 21:12 | XMS_ITS ---
Author Name Interface, [id number] lity Address [address] [facility] [address] [place] [address] [facility] Oncology Address [address] [facility] [address] [place] [address] Allergies and Adverse Reactions Medication/Group Name Reaction [...] active 03/03 Flaxsee d Oil active 03/03 [place] 3-DHA-E PA-Fish Oil Oral Liquid 1,600 mg-500 [...] 06/29/2024 Intravascular Diastolic 88 Notes Section * QUALITY ASSURANCE ENGINEER Follow-Up GYNECOLOGIC ONCOLOGY FOLLOW-UP VISIT Patient Name: ADAM GONZALEZ : 1945 Date of Visit: 01/04/2025 Referring Provider: Radha Bajwa MD FACOG Attending: Eugenie Little (Gynecological/Oncology) Chief Complaint ([facility] Oncology): Surveillance?? History of Present Illness (Solution Analyst Oncology): Adam Gonzalez is a 79 year [...] * 05/2021: Met with radiation oncologist in [place] to plan postoperative radiation to the left groin. ??Medical oncology consult in [place] occurred, discussing weekly cisplatin.? * 06/24/21: Received [...] 01/08/2022: Recurrence #1??perineal cyst biopsy: well-differentiated SCC ([facility]) * 01/28/[address]:??Negative for [...] 2-3 mm at 8-10 o'clock)?? Genetic Testing (Solution Analyst Oncology): N/A ?? Interval History (Solution Analyst Oncology) No interval changes.??Doing OK, no concerns. 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 Non-smoker. Rare [...] performance without restriction. (Date: 10/07/2021) Physical Exam (Solution Analyst Oncology): General: Well appearing, no acute distress [...] 03/26/2022 02/13/2022 10/08/1909/11/2021 Chemistries ? Imaging: PET/CT??01/29/2022 ([facility] [place]):??Decreased but persistent FDG uptake involving the vulvar [...] inguinofemoral LND. 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 * Encouraged compression and elevation * [...] Eugenie Little MD ?? Gynecologic Oncology - [place] [facility]?? Pain Care Management: Pain Scale: 0 Patient Care needs: Depressions Status: Screening Date: 01/04/2025; Plan: Patient declined treatment Psycho-Social PHQ-9 Follow-up Plan (if applicable): Smoking Status: Smoking Tobacco : Never smoker; Smokeless Tobacco : Never used smokeless tobacco; Vaping : Never vaped Eugenie Little MD Copy to: Rashad Bajwa MD FACOG (Referring) Electronically signed by Eugenie Little MD 01/04/2025 15:30 CDT * QUALITY ASSURANCE ENGINEER Follow-Up GYNECOLOGIC ONCOLOGY FOLLOW-UP VISIT Patient Name: ADAM GONZALEZ : 1945 Date of Visit: 06/29/2024 Referring Provider: Radha Bajwa MD FACOG Attending: Eugenie Little (Gynecological/Oncology) Chief Complaint (Solution Analyst Oncology): Surveillance?? History of Present Illness (Solution Analyst Oncology): Adam Gonzalez is a 79 year [...] * 05/2021: Met with radiation oncologist in [place] to plan postoperative radiation to the left groin. ??Medical oncology consult in [place] occurred, discussing weekly cisplatin.? * 06/24/21: Received [...] 01/08/2022: Recurrence #1??perineal cyst biopsy: well-differentiated SCC ([facility]) * 01/28/[address]:??Negative for [...] 2-3 mm at 8-10 o'clock)?? Genetic Testing (Solution Analyst Oncology): N/A ?? Interval History (Solution Analyst Oncology) No interval changes.??Doing OK, no concerns. 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 Non-smoker. Rare [...] BSA: 2.12, BMI: 35.1 kg/m2 Physical Exam (Solution Analyst Oncology): General: Well appearing, no acute distress [...] 03/26/2022 02/13/2022 10/08/1909/11/2021 Chemistries ? Imaging: PET/CT??01/29/2022 ([facility] [place]):??Decreased but persistent FDG uptake involving the vulvar [...] inguinofemoral LND. Previously seen for PT at [place] ; ) * Overactive bladder * Perianal abscess (disorder) * Skin abscess * Urge incontinence of urine * Vulvar lesion Assessment & Plan (Solution Analyst Oncology): Adam Gonzalez is a 79 year [...] node biopsy * Working with??Lymphedema specialist at [facility] * Encouraged compression and elevation * [...] Eugenie Little MD ?? Gynecologic Oncology - [place] [facility]?? Pain Care Management: Pain Scale: 0 [...]
--- OUTSIDE RECORDS SUMMARY | 2025-01-28 21:12 | XMS_ITS ---
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 History of Present Illness ([facility] On[facility]): Adam Gonzalez is a 79 year [...] * 05/2021: Met with radiation oncologist in [place] to plan postoperative radiation to the left groin. ??Medical oncology consult in [place] occurred, discussing weekly cisplatin.? * 06/24/21: Received [...] 01/08/2022: Recurrence #1??perineal cyst biopsy: well-differentiated SCC ([facility]) * 01/28/[address]:??Negative for distant [...] 2-3 mm at 8-10 o'clock)?? Genetic Testing ([facility] Oncology): N/A ?? Interval History ([facility] Oncology) No interval changes.??Doing OK, no concerns. [...] biopsy * Wide local excision of vulva bulker History: x 3 Allergies: * MATTHIAS Inhibitors * Penicillins * losartan Medications: * Apixaban Oral 5.0 mg Oral BID * Coenzyme Q10 Oral * Flaxseed Oil * Atenolol Oral 25 mg tablet 1 tablet orally daily * Clobetasol Topical Cream 0.05 % 0.05 % cream Apply to vulva twice weekly * Fish Oil ([place] 8-TCR-XEU-Fish Oil Oral Liquid 1,600 mg-500 mg-800 mg/5 mL) Family History: * Mother - endometrial cancer, bipolar disorder * Father - alcoholism * Brother - bipolar disorder, alcoholism * Paternal grandmother???stroke, age 79 * Maternal grandfather???heart disease, age 60 Social History: . 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 Non-smoker. Rare alcohol [...] performance without restriction. (Date: 10/07/2021) Physical Exam ([facility] Oncology): General: Well appearing, no acute distress [...] 03/26/2022 02/13/2022 10/08/1909/11/2021 Chemistries ? Imaging: PET/CT??01/29/2022 ([facility] [place]):??Decreased but persistent FDG uptake involving the vulvar [...] inguinofemoral LND. Previously seen for PT at [place] ; ) * Overactive bladder * Perianal abscess (disorder) * Skin abscess * Urge incontinence of urine * Vulvar lesion Assessment & Plan ([facility] Oncology): Adam Gonzalez is a 79 year [...] node biopsy * Working with??Lymphedema specialist at [facility] * Encouraged compression and elevation * [...] Eugenie Little MD ?? Gynecologic Oncology - [place] [facility]?? Pain Care Management: Pain Scale: 0 [...]
--- OUTSIDE RECORDS SUMMARY | 2025-01-28 21:12 | XMS_ITS ---
Author Name Interface, [id number] lity Address [address] [facility] [address] [place] [address] [facility] Oncology Address [address] [facility] [address] [place] [address] Allergies and Adverse Reactions Medication/Group Name Reaction [...] 5 HR 06/24/2021 APPOINTMENT OV 30 MIN 06/24/2021 LABORDER iSTAT creatinine panel 06/24/2021 LABORDER [...] Visit OV 30 MIN Encounters Date Name 06/24/2021 Differentiated SHAMA ( vulvar intraepithelial neoplasia) 06/24/2021 Lichen sclerosus (di sorder) 06/24/2021 Lymphedema of lower extremity (disorder) 06/24/2021 Overactive bladder 06/24/2021 Perianal abscess (di sorder) 06/24/2021 Skin abscess 06/24/2021 Urge incontinence of urine 06/24/2021 Vulvar cancer 06/24/2021 Vulvar lesion Diagnostic Results Date Type Test Units Lower Limit Upper Limit Result Flag Comments Status Ordered By Specimen Source Lab Address 06/24 Magne sium, mg/dL mg/dL 1.5 2.3 2.0 FINAL Xiomara Grahamot a Oncology [facility], [address] [facility] [address] [facility] [phone] Phone: () - 06/24 iSTAT creat inine panel Creat inine , iSTAT mg/dl 0.6 1.3 0.9 FINAL Xiomara Graham a [facility], [address] [place] [address] [address] [facility] [phone] Phone: () - 06/24 iSTAT creat inine panel GFR estim ate ml/min /1.73m ^2 65.7 GFR is calculate d using the CKD-EPI equation. FINAL Xiomara Kelley a [facility] lis, [address] [place] [address] [address] [facility] [phone] Phone: () - 09/11 Surgi anil patho logy panel Biops y summa ry of findi ngs (Added) SEE RESULTS BELOW CASE REPORTPat hology Report Case: [id number] [facility] Provider: Dorothea Engel, Collected :09/12/19 22 0900MDOrd ering Location: [facility] Received: 2 1406Patho logist: Malissa [...] the patient's prior invasive squamous cell carcinoma ([id number] , B14). Therefore , the biopsy isinterpr eted as most consisten t with different iated SHAMA.Case seen in consultat ion with Drs. Peng and Rusty. Case discussed with Dr.Prende montano.CLI NICAL INFORMATI ONHistory of stage IIIa well [...] is inked green and entirely submitted in [facility] te.Mayank Orta 09/11/2021 6:21 PMMICROSC OPIC DESCRIPTI ONThe final diagnosis is based on microscop ic examinati on of appropria te sectionso f all specimens .ADDITION AL INFORMATI ONInterpr eted at [facility], [facility] - [address], [place], [place] [address] Performed by:[facility] - [place], [place] [address]Oufa e : FINAL Dorothea Wade ast 10/07 Surgi anil patho logy panel Biops y summa ry of findi ngs SEE RESULTS BELOW CASE REPORTPat [facility] state hospitalgy Report Case: [id number] ing Provider: Dorothea Engel, Collected :10/08/19 22 0920MDOrd ering Location: [facility] Received: 2 1441Patho logist: Jessica [...] seen in the prior biopsy on 09/11/2021 ([id number]).Case seen in consultat ion with Dr. [...] different iatedvulv ar intraepit helial neoplasia (d-SHAMA) ([id number] 21; 09/11/21). On 09/27/2021 patient called to [...] examined. ADDITIONA L INFORMATI ONInterpr eted at [facility] - [address], [facility] [place], [place] [address]Ntgj Performed by:[facility] - [facility] [place], [place] [address]Glad e : FINAL Dorothea Sheri ast 02/13 [facility] [place] See attache vega 03/26 [facility] other lab See attache vega 05/01 [facility] [place] lab See software developer intern d 05/09 [facility] other lab See software developer intern d Medications Date Name Route Dose Frequency Instructions Start Date End Date Status Fill Status Indication 03/03 Coenzym e Q10 Oral active 03/03 Flaxsee d Oil active 03/03 [place] 3-DHA-E PA-Fish Oil Oral Liquid 1,600 mg-500 [...] (disorder) Active Vital Signs Date Type Value 06/24/2021 Body Temperature 98.00 06/24/2021 Heart Beat 74.00 06/24/2021 Oxygen Saturation 97.00 06/24/2021 Intravascular Systolic 140 06/24/2021 Intravascular Diastolic 80 06/24/2021 BSA 2.17 06/24/2021 Pain Scale 0.00 06/24/2021 Weight 235.00 06/24/2021 Height 67.00 06/24/2021 BMI 36.81 06/24/2021 Respiratory Rate 14.00 09/11/2021 Heart Beat 85.00 09/11/2021 Respiratory Rate [...] 12/25/2021 Weight 227.00 12/25/2021 Height 67.00 12/25/2021 Pain Scale 0.00 12/25/2021 Intravascular Systolic 152 12/25/2021 Intravascular Diastolic 90 12/25/2021 Oxygen Saturation 99.00 12/25/2021 Respiratory Rate 16.00 12/25/2021 Heart Beat 76.00 12/25/2021 Body Temperature 98.10 12/25/2021 BSA 2.13 12/25/2021 BMI 35.55 01/01/2022 Body Temperature 98.20 01/01/2022 BMI 35.24 01/01/2022 Height 67.00 01/01/2022 Weight 225.00 01/01/2022 BSA 2.13 01/01/2022 Intravascular Systolic 162 01/01/2022 Intravascular Diastolic 90 01/01/2022 Oxygen Saturation 99.00 01/01/2022 Respiratory Rate 16.00 01/01/2022 Heart Beat 72.00 01/01/2022 Pain Scale 0.00 01/31/2022 Body Temperature 98.50 01/31/2022 Heart Beat [...]
--- OUTSIDE RECORDS SUMMARY | 2025-01-28 21:12 | XMS_ITS ---
Author Name Interface, [id number] lity Address [address] [facility] [address] [place] [address] [facility] Oncology Address [address] [facility] [address] [place] [address] Allergies and Adverse Reactions Medication/Group Name Reaction [...] Ordered By Specimen Source Lab Address 06/06 [facility] other lab See heel attacher wood d 06/19 CMP Album in g/dL 3.2 5.2 4.5 FINAL Jo [facility], [address] [facility] [address] [phone] 0 Phone: () - 06/19 CMP Alkal ine phosp hatas e U/L 46.0 116.0 100 FINAL Jo [facility], [address] [facility] [address] [phone] 0 Phone: () - 06/19 CMP ALT/S GPT U/L 7.0 40.0 32 FINAL Jo Wells [facility], [address] [facility] [phone] Phone: () - 06/19 CMP AST/S GOT U/L 13.0 40.0 24 [facility] [address] [phone] 0 Phone: () - 06/19 CMP BUN mg/dL 9.0 23.0 14 FINAL Jo Wells [facility], [address] [place] [phone] 0 Phone: () - 06/19 CMP Calci um mg/dL 8.7 10.4 10.1 FINAL Jo butler [facility], [address] [phone] 0 Phone: () - 06/19 CMP Chlor jimmie mmol/L 96.0 114.0 103 FINAL Jo Wells [place] [address] [address] [facility] [address] [facility] [phone] 0 Phone: () - 06/19 CMP CO2 [...] the 96 hour stability window. [place]AL [place] [address] [phone] 0 Phone: () - 06/19 CMP Creat inine mg/dL 0.5 1.2 0.99 FINAL Jo Wells [place] [address] [phone] 0 Phone: () - 06/19 CMP GFR estim ate ml/min /1.73m ^2 58.6 Low GFR is calculate d using the CKD-EPI equation. [place] [address] [phone] 0 Phone: () - 06/19 CMP Gluco se mg/dL 73.0 126.0 92 SUSANA Wells [facility] [address] [phone] 0 Phone: () - 06/19 CMP Potas sium mmol/L 3.5 5.1 4.3 [facility] [address] [phone] 0 Phone: () - 06/19 CMP Sodiu m mmol/L 136.0 145.0 141 FINAL Jo butler [facility], [address] [facility] [facility] [phone] 0 Phone: () - 06/19 CMP Bilir ubin, total mg/dL 0.3 1.2 0.3 FINAL Jo butler [facility], [address] [place] [phone] 0 Phone: () - 06/19 CMP Total prote in g/dL 5.7 8.2 7.4 FINAL Jo butler [facility], [address] [place] [phone] 0 Phone: () - 06/19 CBC w/ auto diff WBC K/uL 3.0 8.9 9.9 High FINAL Jo butler [facility] - [place] [facility], [address] [place] [address] [address] [place] [phone] 0 Phone: () - 06/19 CBC w/ auto diff HGB g/dL 11.3 15.2 13.3 FINAL Jo butler [facility] - [place] [facility], [address] [place] [address] [address] [place] [phone] 0 Phone: () - 06/19 CBC w/ auto diff PLT K/uL 113.0 364.0 339 FINAL Jo butler Oncology - [place] [facility], [address] [place] [address] [address] [place] [phone] 0 Phone: () - 06/19 CBC w/ auto diff Juan # (ANC) K/uL 1.6 6.6 5.6 FINAL Jo butler [facility] - [place] [facility], [address] [place] [address] [address] [place] [phone] 0 Phone: () - 06/19 CBC w/ auto diff Juan % % 43.0 74.0 56.7 FINAL Jo butler [facility] - [place] [facility], [address] [place] [address] [address] [place] [phone] 0 Phone: () - 06/19 CBC w/ auto diff IG % % 0.0 0.5 0.3 FINAL Jo butler Oncology - [place] [facility], [address] [place] [address] [address] [place] [phone] 0 Phone: () - 06/19 CBC w/ auto diff IG # K/uL 0.0 0.03 0.03 FINAL Jo butler [facility] - [place], [address] [place] [address] [address] [place] [phone] 0 Phone: () - 06/19 CBC w/ auto diff LY % % 14.0 41.0 30.5 FINAL Jo butler [facility] - [place], [address] [place] [address] [address] [place] [phone] 0 Phone: () - 06/19 CBC w/ auto diff MO % % 6.0 15.0 8.3 FINAL Jo butler [facility] - [place], [address] [place] [address] [address] [place] [phone] 0 Phone: () - 06/19 CBC w/ auto diff EO % % 0.0 7.0 3.5 FINAL Jo butler [facility] - [place], [address] [place] [address] [address] [place] [phone] 0 Phone: () - 06/19 CBC w/ auto diff BA % % 0.0 2.0 0.7 SUSANA butler Oncology - [place], [address] [place] [address] [address] [place] [phone] 0 Phone: () - 06/19 CBC w/ auto diff LY # K/uL 0.4 3.6 3.0 SUSANA butler [facility] - [place], [address] [place] [address] [address] [place] [phone] 0 Phone: () - 06/19 CBC w/ auto diff MO # K/uL 0.2 1.3 0.8 SUSANA butler [facility] - [place], [address] [place] [address] [address] [place] [phone] 0 Phone: () - 06/19 CBC w/ auto diff EO # K/uL 0.0 0.6 0.4 SUSANA butler [facility] - [place], [address] [place] [address] [address] [place] [phone] 0 Phone: () - 06/19 CBC w/ auto diff BA # K/uL 0.0 0.2 0.1 SUSANA butler [facility] - [place], [address] [place] [address] [address] [place] [phone] 0 Phone: () - 06/19 CBC w/ auto diff NRBC % #/100W BC 0.0 0.2 0.0 FINAL Jo butler [facility] - [place], [address] [place] [address] [address] [place] [phone] 0 Phone: () - 06/19 CBC w/ auto diff RBC M/uL 3.9 5.1 4.55 FINAL Jo butler On[facility] - [place], [address] [place] [address] [address] [place] [phone] 0 Phone: () - 06/19 CBC w/ auto diff HCT % 35.0 48.0 41.6 FINAL Jo butler Oncology - [place], [address] [place] [phone] 0 Phone: () - 06/19 CBC w/ auto diff MCV fL 80.0 104.0 91.4 FINAL Jo butler [facility] - [place], [address] [place] [address] [address] [place] [phone] 0 Phone: () - 06/19 CBC w/ auto diff MCH pg 26.0 35.0 29.2 FINAL Jo butler On[facility] - [place], [address] [place] [address] [address] [place] [phone] 0 Phone: () - 06/19 CBC w/ auto diff MCHC g/dL 30.0 35.0 32.0 FINAL Jo butler On[facility] - [place], [address] [place] [address] [address] [place] [phone] 0 Phone: () - 06/19 CBC w/ auto diff MPV fL 9.5 13.4 10.3 FINAL Jo butler [facility] - [place], [address] [place] [address] [address] [place] [phone] 0 Phone: () - 06/19 CBC w/ auto diff RDW % 11.4 16.1 13.30 FINAL Jo butler [facility] - [place], [address] [place] [address] [address] [place] [phone] 0 Phone: () - 06/24 Magne sium, mg/dL mg/dL 1.5 2.3 2.0 FINAL Xiomara butler Oncology - [place], [address] [facility] [phone] 0 Phone: () - 06/24 iSTAT creat inine panel Creat inine , iSTAT mg/dl 0.6 1.3 0.9 FINAL Xiomara butler Oncology - [facility], [address] [place] [address] [address] [facility] [place] [phone] 0 Phone: () - 06/24 iSTAT creat inine panel GFR estim ate ml/min /1.73m ^2 65.7 GFR is calculate d using the CKD-EPI equation. FINAL [facility], [address] [place] [address] [address] [facility] [place] [phone] 0 Phone: () - 09/11 Surgi anil patho logy panel Biops y summa ry of findi ngs (Added) SEE RESULTS BELOW CASE REPORTPat [facility] Report Case: [id number] ing Provider: Dorothea Engel, Collected :09/12/19 22 0900MDOrd ering Location: [facility] Received: 2 1406Patho logist: [...] the patient's prior invasive squamous cell carcinoma ([id number] , B14). Therefore , the biopsy isinterpr [...] is inked green and entirely submitted in the [facility] te.Mayank Orta 09/11/2021 6:21 PMMICROSC OPIC DESCRIPTI ONThe final diagnosis is based on microscop ic examinati on of appropria te sectionso f all specimens .ADDITION AL INFORMATI ONInterpr eted at [facility], [facility] - [address], [facility] [place], [place] [address]Qdob Performed by:[facility] - [place], [place] [address]Roel e : FINAL Dorothea Wade ast 10/07 Surgi anil patho logy panel Biops y summa ry of findi ngs SEE RESULTS BELOW CASE REPORTPat hology Report Case: [id number] ing Provider: Dorothea Engel, Collected :10/08/19 22 0920MDOrd ering Location: [facility] Received: 2 1441Patho logist: [...] seen in the prior biopsy on 09/11/2021 ([id number]).Case seen in consultat ion with Dr. [...] different iatedvulv ar intraepit helial neoplasia (d-SHAMA) ([id number]; 09/11/21). On 09/27/2021 patient called to [...] examined. ADDITIONA L INFORMATI ONInterpr eted at [facility] - [address], [facility] [place], [place] [address]Goux Performed by:[facility] - [facility] [place], [place] [address]Vbnj e : FINAL Dorothea Wade ast 02/13 [facility] other lab See heel attacher wood d 03/26 [facility] other lab See heel attacher wood d 05/01 [facility] See heel attacher wood d 05/09 [facility] other lab See heel attacher wood d Medications Date Name Route Dose Frequency Instructions Start Date End Date Status Fill Status Indication 03/03 Coenzym e Q10 Oral active 03/03 Flaxsee d Oil active 03/03 Tynan 3-DHA-E PA-Fish Oil Oral Liquid 1,600 mg-500 [...] Active Vital Signs Date Type Value 05/10/2021 Pain Scale 2.00 05/10/2021 Weight 238.00 05/10/2021 Height 67.00 05/10/2021 BMI 37.28 05/10/2021 Intravascular Systolic 132 05/10/2021 Intravascular Diastolic 80 05/10/2021 Body Temperature 97.60 05/10/2021 Heart Beat 76.00 05/10/2021 Respiratory Rate 18.00 05/10/2021 Oxygen Saturation 99.00 05/10/2021 BSA 2.18 05/29/2021 Body Temperature 98.40 05/29/2021 Heart Beat 73.00 05/29/2021 Respiratory Rate 18.00 05/29/2021 Oxygen Saturation 98.00 05/29/2021 BSA 2.16 05/29/2021 Pain Scale 1.00 05/29/2021 Weight 233.60 05/29/2021 Height 67.00 05/29/2021 BMI 36.59 05/29/2021 Intravascular Systolic 142 05/29/2021 Intravascular Diastolic 70 06/19/2021 Body Temperature 97.90 06/19/2021 Heart Beat [...]
--- OUTSIDE RECORDS SUMMARY | 2025-01-28 21:12 | XMS_ITS ---
Author Name Interface, [id number] lity Address [address] [place], [place] [address] [place] [address] [facility] Oncology Address [facility] [address] [address] Allergies and Adverse Reactions Plan Reason for Visit Encounters Medications Problems Notes Section
[2025-01-28 21:21] LABS: Lactate* 1.6 mmol/L (0.5-1.9)
[2025-01-28 21:23] LABS: Hematocrit* 40.7 % (33.0-51.0); Hemoglobin* 12.9 gm/dL (12.0-16.0); Immature Granulocytes Abs Auto 0.01 K/uL (0.00-0.30); Immature Granulocytes Pct Auto 0.1 %; Mean Corpuscular HGB Conc 32 gm/dL (32-36); Mean Corpuscular Hemoglobin 29 pg (26-34); Mean Corpuscular Volume 93 fL (80-100); RDW Coefficient of Variation % 13.5 % (11.5-15.5); Red Blood Count* 4.40 m/uL (4.00-5.20); White Blood Count* 7.26 K/uL (4.50-11.00)
[2025-01-28 21:27] LABS: Lymphocytes Absolute Auto 0.80 K/uL (0.90-2.90); Slide Review Reflex No
[2025-01-28 21:30] LABS: Appearance Urine Clear (Clear)
[2025-01-28 21:37] LABS: Albumin* 4.1 g/dL (3.3-5.0); Chloride* 100 mmol/L (96-114); Potassium* 3.7 mmol/L (3.6-5.1)
[2025-01-28 21:40] LABS: Alanine Aminotransferase* 552 U/L (4-35); Alkaline Phosphatase* 225 U/L (40-150); Bilirubin Direct* 0.9 mg/dL (0.0-0.5); Bilirubin Total* 1.2 mg/dL (0.1-1.5); Blood Urea Nitrogen* 15 mg/dL (7-30); Carbon Dioxide* 26 mmol/L (20-32); Creatinine* 0.9 mg/dL (0.5-1.5); Est. Creatinine Clearance* 43.63; Estimated Glomerular Filt Rate 65 ml/min
[2025-01-28 21:41] LABS: Calcium* 9.3 mg/dL (8.4-10.6); Glucose* 118 mg/dL (60-115); Total Protein* 7.8 g/dL (6.0-8.3)
[2025-01-28] MEDS: ONDANSETRON 2 MG/ML inj 4 MG IVP (21:41)
[2025-01-28 21:42] LABS: D Dimer Quantitative* 0.84 ug/ml (0.00-0.50)
[2025-01-28 21:47] LABS: Aspartate Amino Transferase* 724 U/L (12-35)
[2025-01-28 21:54] VITALS: BP 153/77; PULSE 59; RESP 21; O2SAT 94
[2025-01-28 21:57] LABS: Procalcitonin* 0.09 ng/mL (<0.50)
[2025-01-28 22:02] VITALS: BP 161/76; PULSE 59; RESP 18; O2SAT 94
[2025-01-28 22:03] LABS: Anion Gap 6 mEq/L (7-15); Sodium* 132 mmol/L (135-149)
[2025-01-28 23:25] VITALS: BP 156/78; PULSE 73; RESP 14; O2SAT 96
[2025-01-28 23:31] VITALS: BP 160/89; PULSE 74; RESP 18; O2SAT 96
[2025-01-29] VITALS (21 sets, daily range): BP systolic 143–165; BP diastolic 78–84; PULSE 54–74; RESP 8–45; TEMP 36.6; O2SAT 94–97
[2025-01-29] MEDS: MELATONIN 3 MG TABLET PO (03:29)
--- NOTE | 2025-01-29 07:00 | CRLHL7_ITS ---
For Patients: As a result of the Century Cures Act, medical imaging exams and procedure reports are released immediately into your electronic medical record. You may view this report before your referring provider. If you have questions, please contact your health care provider. INDICATION: Elevated liver function tests. TECHNIQUE: Ultrasound abdomen limited. Sonographic images of the right upper quadrant were obtained using grigsby-scale and color Doppler images. COMPARISON: None. FINDINGS: Liver: Normal in size. Moderate increased echogenicity. Normal echotexture. No definite surface nodularity. No definite liver lesion is seen. Gallbladder: The gallbladder is partially distended. Multiple large stones are seen which extend into the neck. No wall thickening. No pericholecystic fluid. 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 Common bile duct: 5 mm. Pancreas: Unremarkable. Right kidney: Normal in size. Normal echotexture and cortex. No suspicious masses, stones, or hydronephrosis. Vasculature: Proximal abdominal aorta: Borderline ectatic measuring 2.5 centimeters. IVC: Patent. Main portal vein: Patent. Ascites: None visualized. IMPRESSION: 1. Cholelithiasis without sonographic evidence of acute cholecystitis. 2. Hepatic steatosis. Dictated by Joaquim Chu MD @ 01/29/2025 8:55:16 AM (Electronically Signed)
[2025-01-29 09:20] LABS: Hematocrit* 40.3 % (33.0-51.0); Hemoglobin* 12.8 gm/dL (12.0-16.0); Immature Granulocytes Abs Auto 0.01 K/uL (0.00-0.30); Immature Granulocytes Pct Auto 0.2 %; Mean Corpuscular HGB Conc 32 gm/dL (32-36); Mean Corpuscular Hemoglobin 30 pg (26-34); Mean Corpuscular Volume 93 fL (80-100); RDW Coefficient of Variation % 13.8 % (11.5-15.5); Red Blood Count* 4.32 m/uL (4.00-5.20); White Blood Count* 6.02 K/uL (4.50-11.00)
[2025-01-29 09:21] LABS: Lymphocytes Absolute Auto 1.00 K/uL (0.90-2.90); Slide Review Reflex No
[2025-01-29 09:35] LABS: Albumin* 4.1 g/dL (3.3-5.0); Chloride* 103 mmol/L (96-114); Potassium* 3.9 mmol/L (3.6-5.1); Sodium* 134 mmol/L (135-149)
[2025-01-29 09:38] LABS: Alanine Aminotransferase* 653 U/L (4-35); Alkaline Phosphatase* 243 U/L (40-150); Anion Gap 4 mEq/L (7-15); Aspartate Amino Transferase* 709 U/L (12-35); Bilirubin Direct* 0.7 mg/dL (0.0-0.5); Bilirubin Total* 1.2 mg/dL (0.1-1.5); Blood Urea Nitrogen* 11 mg/dL (7-30); Calcium* 9.2 mg/dL (8.4-10.6); Carbon Dioxide* 27 mmol/L (20-32); Creatinine* 0.9 mg/dL (0.5-1.5); Est. Creatinine Clearance* 43.63; Estimated Glomerular Filt Rate 65 ml/min; Glucose* 121 mg/dL (60-115); Total Protein* 7.8 g/dL (6.0-8.3)
[2025-01-29] MEDS: 0.9 % SODIUM CHLORIDE 250 ml 250 ML IV (09:43)
[2025-02-01 10:46] LABS: Hep B Surface Antigen Negative (Negative); Hep C Ab by CIA Interp Negative (Negative)
== END 2025-01-29 10:41 | disposition home or self-care (01) ==
PROVIDERS: Family Medicine; Emergency Provider Family Medicine; PCP Internal Medicine Cardiovascular Disease
DX: K80.20 Calculus of gallbladder without cholecystitis without obstruction (principal); R82.90 Unspecified abnormal findings in urine; R74.01 Elevation of levels of liver transaminase levels; K76.0 Fatty (change of) liver, not elsewhere classified; I71.43 Infrarenal abdominal aortic aneurysm, without rupture
CPT/HCPCS: 36415; 71275; 74174; 76705; 80048; 80053; 80074; 80076; 81001; 82248; 83605; 83690; 83735; 84145; 84484; 85025; 85379; 86140; 87086; 93005; 94761; 96361; 96374; 96375; 99284; 99285; A9270; J2405; J3010; J7030; J7050; Q9967

== ENCOUNTER 2025-02-08 11:45 | Outpatient (CLI) | payer MEDICARE, SELFPAY | END 2025-02-08 11:46 | disposition home or self-care (01) | PROVIDERS: PCP Internal Medicine Cardiovascular Disease; Visit Provider Surgery | DX: K80.20 Calculus of gallbladder without cholecystitis without obstruction (principal); K80.50 Calculus of bile duct without cholangitis or cholecystitis without obstruction; R79.89 Other specified abnormal findings of blood chemistry; Z79.01 Long term (current) use of anticoagulants | CPT/HCPCS: 80076; 83690 ==

== ENCOUNTER 2025-02-23 09:14 | Day surgery (SDC) | payer MEDICARE, SELFPAY ==
[2025-02-23] VITALS (14 sets, daily range): BP systolic 102–156; BP diastolic 51–80; PULSE 61–65; RESP 14–22; TEMP 36.2–36.8; O2SAT 91–98; BMI 35.3
[2025-02-23] MEDS: LACTATED RINGERS 1000 ML 1,000 ML 100 ML IV ×2 (09:54→13:05)
[2025-02-23] MEDS: SODIUM CHLORIDE 0.9 % (FLUSH) 10 ML SYRINGE IVF (09:54)
--- NOTE | 2025-02-23 10:10 | W.PM.H&PU ---
History & Physical Update History & Physical Update H&P Reviewed and patient assessed: The following changes are noted below H&P Updates: Elaquis has been held for 3 days pre-op.
--- NOTE | 2025-02-23 10:11 | P.GSOP_ITS ---
Operative Note Date of procedure: 02/23/25 Pre-op diagnosis: 1. Symptomatic cholelithiasis 2. Elevated liver enzymes Post-op diagnosis: Symptomatic cholelithiasis Type of Procedure: 1. Laparoscopic cholecystectomy 2. Intraoperative cholangiogram Indications: The patient is an 80-year-old female who presented to the emergency department with severe back pain. She was found to have elevated LFTs including direct bilirubin. Ultrasound showed gallstones including stone stuck in her gallbladder neck. Her liver tests were persistently elevated however her pain went away. She was discharged home to follow-up as an outpatient. She was seen in clinic and cholecystectomy with intraoperative cholangiogram was recommended. Repeat labs showed only a mildly elevated AST. She initially preferred to continue with a low-fat diet as she had been doing better from a symptom standpoint, however she decided to proceed with cholecystectomy Procedure Description: After discussing the risks and benefits of the procedure, the patient signed informed consent.? The operative site was marked and the patient was brought to the operating room and placed on the operating table in supine position.? Care was taken to pad the patient's pressure points.?? The patient was then intubated by anesthesia.?? The operative site was then prepped and draped in the usual sterile fashion.? A time-out was then performed. Entrance to the abdomen was gained via a 5 mm Visiport in the left upper quadrant. The abdomen was insufflated and briefly surveyed for signs of injury. There was none. A 10 mm umbilical port was placed as well as 2 working ports along the right costal margin, all under direct vision. The patient was then placed in reverse Trendelenburg position with the right side up. Omentum was noted to be adherent to the liver. Using a combination of cautery and blunt dissection I was able to dissect this down. The gallbladder was distended. The gallbladder fundus was grasped and retracted cephalad. I continued to dissect the omentum off of the gallbladder, exposing the infundibulum. The infundibulum was grasped. A combination of hook cautery and blunt dissection was used to carefully dissect out the cystic duct and artery until they could clearly be seen entering the gallbladder without any intervening structures. The cystic duct appeared to be dilated and there were stones impacted within. I placed a clip over the cystic duct neck and then created a ductotomy. I was able to push multiple small stones and sludge retrograde from the cystic duct. I then advanced a cholangiocatheter. The patient was placed flat and fluoroscopy was brought into the field. I then injected contrast after performing a saline leak test and noted brisk filling of the common bile duct, right and left hepatic ducts as well as the duodenum. There did not appear to be a filling defect. The patient was then placed again in reverse Trendelenburg with the right-side up. The cholangiocatheter was removed and clips were placed across the distal cystic duct. The cystic duct was then transected and the gallbladder was removed from the liver bed. It was then removed from the abdomen using an Endo- Catch bag. There was bleeding noted from the gallbladder bed. This was at the periphery. This was controlled with cautery which resulted in excellent hemostasis. Once this was done, I did place Surgicel in the liver bed. The ports were then removed and abdomen desufflated. The umbilical port fascia was closed with 0 Vicryl. The skin was closed with absorbable subcuticular suture. Instrument sponge and needle counts were correct at the end of the case. The patient was then woken and transferred to the PACU in stable condition. ? The patient tolerated the procedure well. Findings: 1. Gallbladder with chronic inflammation. 2. Impacted stones in the cystic duct and gallbladder neck 3. Negative cholangiogram. Surgeon: Moni Wang MD Estimated blood loss (mL): 25 Specimen: Gallbladder Condition: stable Disposition: PACU
--- NOTE | 2025-02-23 10:30 | CRLHL7_ITS ---
For Patients: As a result of the Century Cures Act, medical imaging exams and procedure reports are released immediately into your electronic medical record. You may view this report before your referring provider. If you have questions, please contact your health care provider. INDICATION : Laparoscopic cholecystectomy. TECHNIQUE : Intraoperative cholangiogram. Contrast injected via gallbladder neck and cystic duct. FINDINGS : Fluoroscopy time was 22.4 seconds. 2 images were obtained. IMPRESSION : Normal caliber intra and extrahepatic ducts. No filling defects. Contrast seen within the duodenum. Normal intraoperative cholangiogram. Dictated by Rashad Jacques MD @ 02/23/2025 12:46:24 PM (Electronically Signed)
[2025-02-23] MEDS: CLINDAMYCIN 900 MG/50 ML-D5W IVPB (10:37)
[2025-02-23] MEDS: 0.9 % SODIUM CHL 20 ml vial INJECTION (11:30)
[2025-02-23] MEDS: 0.9% SODIUM CHL 50 ML VIAL INJECTION (11:30)
[2025-02-23] MEDS: BUPIVACAINE 0.25% 30 ML INJECTION (11:45)
--- NOTE | 2025-02-23 12:18 | P.ANES_ITS ---
Anesthesia Charges Start Date/Time Anesthesia Start Date: 02/23/25 Anesthesia Start Time: 10:24 Stop Date/Time Anesthesia Stop Date: 02/23/25 Anesthesia Stop Time: 12:15 Coding CPT Codes CPT Codes: ANESTH SURG UPPER ABDOMEN - 23549 ([id number]) P3 - PATIENT W/SEVERE SYS DISEASE, QZ - CUTCH CLEANER SVC W/O PROJECT DEVELOPER BY
--- NOTE | 2025-02-23 12:18 | W.ANESCHARGE ---
Anesthesia Charges Start Date/Time Anesthesia Start Date: 02/23/25 Anesthesia Start Time: 10:24 Stop Date/Time Anesthesia Stop Date: 02/23/25 Anesthesia Stop Time: 12:15 Coding CPT Codes CPT Codes: ANESTH SURG UPPER ABDOMEN - 75240 ([id number]) P3 - PATIENT W/SEVERE SYS DISEASE, QZ - BELT LOOP MAKER SVC W/O CONSTRUCTION SUPERVISOR/CARPENTER BY
--- NOTE | 2025-02-23 13:43 | SUR.PHASEII ---
Q Easy patch applied to pt's gown. Pt has mild nausea. Will continue to monitor.
[2025-02-23] MEDS: ONDANSETRON 2 MG/ML inj 4 MG IVP (14:38)
== END 2025-02-23 15:19 | disposition home or self-care (01) ==
PROVIDERS: PCP Internal Medicine Cardiovascular Disease; Visit Provider Surgery
PROC: 0FT44ZZ Resection of Gallbladder, Percutaneous Endoscopic Approach (ICD-10-PCS; CPT 47563; principal; 2025-02-23 10:30)
DX: K80.71 Calculus of gallbladder and bile duct without cholecystitis with obstruction (principal); R74.8 Abnormal levels of other serum enzymes
CPT/HCPCS: 47563; 00790; 74300; 76000; J0665; J0736; J1100; J2405; J2704; J3010; J3490; J7120; Q9967